=== PATIENT | female | born 1980 | race Caucasian/White ===

== ENCOUNTER → 2016-06-26 | Outpatient (CLI) | payer MEDICAID, MEDICARE, OTHER ==
[~2016-06-26] MED LIST: BUSP5TA PO; CYCL10TA PO; DIAM500C PO; EFFE150C PO; FERR325T3 PO; HYDR-4274 PO; HYDR25T PO; LAMI200T3 PO; LASI20TA PO; LEVO125T41 PO; LYRI100C10 PO; LYRI75CA PO; OXYC1TAB15 PO; PERC10TA17 PO; PERC7.5T3 PO; VITA200010 PO; VITA200016 PO; XOPEAER INH
--- NOTE | 2016-06-26 15:32 | REP ---
CT head without contrast: History: Ventricular shunt. Comparison: 09/26/2015 There is no intraparenchymal hemorrhage, mass or midline shift. A shunt is present in the anterior horn of the right lateral ventricle. The ventricular system is normal in appearance. There is no hydrocephalus. There is no extracerebral collection. The visualized sinuses are clear. IMPRESSION: A shunt is present in the right lateral ventricle. There is no hydrocephalus. Signed by Eric Clement MD 06/26/2016 03:36 P
== END ==
LOC: M RAD 14:37
PROVIDERS: ATTEND Neurological Surgery
DX: G93.2 Benign intracranial hypertension (principal); Z98.2 Presence of cerebrospinal fluid drainage device; E03.9 Hypothyroidism, unspecified

== ENCOUNTER → 2016-06-26 | Outpatient (CLI) | payer MEDICARE, OTHER ==
[2016-06-26 15:09] LABS: MEAN CORPUSCULAR HEMOGLOBIN 31.1 pg (27.0-33.0); MEAN CORPUSCULAR HGB CONC 33.5 g/dl (32.0-36.5); MEAN CORPUSCULAR VOLUME 92.8 fl (80.0-96.0); WHITE BLOOD COUNT 9.9 K/mm3 (4.0-10.0)
[2016-06-26 15:35] LABS: ALBUMIN 3.9 GM/DL (3.2-5.2); ALBUMIN/GLOBULIN RATIO 1.11 (1.00-1.93); ALKALINE PHOSPHATASE 225 U/L (45-117); ALT/SGPT 55 U/L (12-78); ANION GAP 11 MEQ/L (8-16); AST/SGOT 19 U/L (15-37); BILIRUBIN,TOTAL 0.2 MG/DL (0.2-1.0); BLOOD UREA NITROGEN 9 MG/DL (7-18); CALCIUM LEVEL 9.1 MG/DL (8.5-10.1); CARBON DIOXIDE LEVEL 23 MEQ/L (21-32); CHLORIDE LEVEL 107 MEQ/L (98-107); CREATININE FOR GFR 0.97 MG/DL (0.55-1.02); FREE T4 0.91 NG/DL (0.76-1.46); GLOMERULAR FILTRATION RATE > 60.0 (>60); GLUCOSE, FASTING 120 MG/DL (70-105); POTASSIUM SERUM 4.1 MEQ/L (3.5-5.1); SODIUM LEVEL 141 MEQ/L (136-145); TOTAL PROTEIN 7.4 GM/DL (6.4-8.2)
== END ==
LOC: M LAB 14:02
PROVIDERS: ATTEND Family Medicine
DX: E03.9 Hypothyroidism, unspecified (principal)

== ENCOUNTER → 2016-06-27 | Outpatient (CLI) | payer MEDICARE, MEDICAID, OTHER ==
--- NOTE | 2016-07-01 00:09 | ECWPNPC ---
PATIENT NAME: JASVIR PADILLA : 1980 GENDER: FEMALE VISIT DATE: 06/27/2016 DISCHARGE DATE: 06/27/16 1458 VISIT LOCKED DATE TIME: PHYSICIAN: LILIA WOOTEN RESOURCE: LILIA WOOTEN REASON FOR APPOINTMENT 1. FIBROMYALGIA HISTORY OF PRESENT ILLNESS NEW PATIENT CONSULT: WHEN DID YOUR PAIN FIRST START? . BRIEFLY DESCRIBE HOW YOUR PAIN STARTED? . HOW DOES YOUR PAIN CHANGE WITH TIME? . DOES YOUR PAIN AWAKEN YOU FROM SLEEP? . HOW MANY HOURS OF SLEEP DO YOU NORMALLY GET? . ANY DIAGNOSTIC TESTING? . FACILITY WHERE TESTS WERE DONE? ____. PAIN TREATMENT TREATMENT YES CANCER HAVE YOU EVER HAD ANY TYPE OF CANCER?NO NO. PAIN SCREENING: PATIENT HAS A COMPLAINT OF ACUTE OR CHRONIC PAIN YES FALL RISK SCREENING: SCREENING :NO FALLS IN THE PAST YEAR US INVENTORY: QUESTIONNAIRE ASSESSEDTBD SCORE VALUE CALCULATED TBD HISTORY OF PRESENT ILLNESS: HERE FOR F/U GENERALIZED BODY PAIN AND HEAD PAIN AND PARATHESIA. NEUROLOGY IN [place] DR. HEATON PLACED SHUNT RIGHT HEAD IN MARCH.REPORTING SOME IMPROVEMENT IN RIGHT HEAD PAIN.C/O SEVERE INCRESE IN GENERALIZED BODY PAIN W HX OF FIBROMYALGIA.C/O GENERALIZED BODY BURNING PAIN.STATES SHE CANT WALK DUE TO LOWER EXTREMITY WEAKNESS. AWAITING SHUNT PLACE DIAGNOSED W PSEUDO TUMOR CEREBRI 3 YRS AGO. 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 FINDING LYRICA AND FLEXERIL HELPFUL BUT WONDERING IF WE CAN INCREASE LYRICA. DENIES SIDE EFFECTS.RATING PAIN VAS 8/10.REPORTING WEIGHT GAIN AND REPORTS 5 POUND WEIGHT GAIN PAST MOS. PAIN THE PATIENT DESCRIBES THE PAIN... THE PATIENT DESCRIBES THE PAIN... THE PATIENT DESCRIBES THE PAIN... THE PATIENT DESCRIBES THE PAIN... CURRENT MEDICATIONS TAKING LAMICTAL 200 MG TABLET 1 TABLET ORALLY DAILY TAKING EFFEXOR XR 37.5 MG CAPSULE EXTENDED RELEASE 24 HOUR 1 CAPSULE WITH FOOD ORALLY ONCE A DAY TAKING LEVOTHYROXINE SODIUM 175 MCG TABLET 1 TABLET ORALLY ONCE A DAY TAKING FERROUS SULFATE 325 MG CAPSULE ORALLY TAKING DIAMOX SEQUELS 750 MG CAPSULE EXTENDED RELEASE 1 CAPSULE ORALLY BID TAKING VITAMIN D-3 2000 CAPSULE 1 CAPSULE ORALLY ONCE A DAY TAKING PERCOCET 10-325 MG TABLET 2 TABLET NEEDED ORALLY TID TAKING CYCLOBENZAPRINE HCL 10 MG TABLET 1 TABLET ORALLY QID TAKING LYRICA 200 MG CAPSULE 1 CAPSULE ORALLY THREE TIMES A DAY MDD3 TAKING EFFEXOR XR 150 MG CAPSULE EXTENDED RELEASE 24 HOUR 2 CAPSULE WITH FOOD ORALLY ONCE A DAY TAKING ZOFRAN 4 MG TABLET 1 TABLETS ORALLY Q 6 PRN NOT-TAKING HYDROXYZINE HCL 25 MG TABLET 1 TABLET NEEDED ORALLY BID NOT-TAKING PREGABALIN 200 MG CAPSULE 1 CAPSULE ORALLY 3 TIMES A DAY NOT-TAKING DOXYCYCLINE HYCLATE 100 MG CAPSULE 1 CAPSULE ORALLY BID NOT-TAKING FLOMAX 0.4 MG CAPSULE EXTENDED RELEASE 24 HOUR 1 CAPSULE 30 MINUTES AFTER THE SAME MEAL EACH DAY ORALLY ONCE A DAY NOT-TAKING POTASSIUM CITRATE ER 10 MEQ (1080 MG) TABLET EXTENDED RELEASE 1 TABLET WITH MEALS ORALLY THREE TIMES A DAY MEDICATION LIST REVIEWED AND RECONCILED WITH THE PATIENT PAST MEDICAL HISTORY PSEUDO TUMOR CEREBRI KIDNEY STONE ASTHMA ARTHRITIS FIBROMYALGIA ANEMIA CERVICAL STENOSIS CHRONIC BACK PAIN NASAL PASSAGE NARROWING ALLERGIES BETADINE: HIVES IODINE: HIVES LATEX (FOR ALLERGY USE ONLY): HIVES PENICILLIN (FOR ALLERGIES USE ONLY): HIVES CEFTIN: THROAT SWELLING SULFA (FOR ALLERGY USE ONLY): HIVES ERYTHROMYCIN: NAUSEA/VOMITING: SIDE EFFECTS SURGICAL HISTORY TOTAL HYSTERECTOMY 2016 SHUNT PLACED 2016 CARPEL TUNNEL BILATERAL 2013 FAMILY HISTORY FATHER: UNKNOWN MOTHER: ALIVE SIBLINGS: ALIVE SOCIAL HISTORY GENERAL: PAIN CLINIC PFS, CLERGY, PUBLIC HEALTH REFERRALS CLERGY REFERRAL NEEDED?NO WAS THE PROVIDER NOTIFIED OF ANY PERTINENT INFO?NO PFS REFERRAL NEEDED?NO PUBLIC HEALTH REFERRAL NEEDED?NO PSYCHOLOGICAL HX TREATMENTNO ALCOHOL OR DRUG TREATMENTNO PATIENT: ____. ADVANCED DIRECTIVES HEALTH CARE PROXY?NO POWER OF AEROSPACE PROJECT ENGINEER?NO SCREENING/ASSESSMENT TOOL NUTRITION ASSESSEDYES ARE YOU ON ANY SPECIAL DIET?NO ANY SIGNIFICANT CHANGES RELATED TO EATING, WEIGHT GAIN/LOSS, OR BOWEL HABITS?NO IF YES, IS YOUR PRIMARY CARE PROVIDER AWARE OF THIS?NO SPECIAL NEEDS LEVEL OF CARE? SELF, GLASSES: NO, CONTACTS: NO, HEARING AIDS: NO, DENTURES: NO, WALKER: NO, CANE: NO, WHEELCHAIR: NO, REFERRALS NEEDED: NO. TOBACCO USE ARE YOU A:NONSMOKER CAFFEINE CAFFEINE USE?NO RECREATIONAL DRUG USE DRUG USE?NO HOSPITALIZATION/MAJOR DIAGNOSTIC PROCEDURE NO HOSPITALIZATION HISTORY. REVIEW OF SYSTEMS CONSTITUTIONAL: ANY CHANGE IN YOUR MEDICAL CONDITION? NO . CHILLS NO . FEVER NO . INFECTION: DO YOU HAVE NEW INFECTIONS? NO . DO YOU HAVE HISTORY OF MRSA? NO . MUSCULOSKELETAL: ANY NEW PATTERNS OF PAIN OR NUMBNESS? NO . SYTEMIC LUPUS NO . GASTROENTEROLOGY: ANY NEW CHANGE IN BOWEL CONTROL? NO . BARRETTS ESOPHAGUS NO . CIRRHOSIS NO . HEPATITIS NO . LIVER FAILURE NO . ACID REFLUX NO . UNEXPLAINED WEIGHT LOSS NO . GENITOURINARY: ANY NEW CHANGE IN BLADDER CONTROL? NO . IS THERE A CHANCE YOU COULD BE ? NO . HEMATOLOGY/LYMPH: DO YOU TAKE ANY BLOOD THINNERS? (FOR EXAMPLE- COUMADIN, PLAVIX, AGGRENOX, PLATEL, PRADAXA, OR XARELTO) NO . WHEN WAS YOUR LAST DOSE? DATE: TIME: . LOW PLATELET COUNT NO . SICKLE CELL DISEASE NO . VON WILLIEBRANDS NO . FACTOR V LEIDEN NO . THALLASEMIA NO . ANEMIA NO . EASY BRUISING NO . NEUROLOGY: HAVE YOU FALLEN IN THE PAST 6 MONTHS? NO . ANY NEW EXTREMITY NUMBNESS OR WEAKNESS? NO . HEAD INJURY NO . DEMENTIA NO . CEREBRAL PALSY NO . MULTIPLE SCLEROSIS NO . DIZZINESS NO . HEADACHE NO . STROKES NO . VERTIGO NO . CARDIOLOGY: DO YOU HAVE A PACEMAKER OR DEFIBRILLATOR? NO . ANGINA NO . HEART ATTACK NO . HEART SURGERY NO . CONGESTIVE HEART FAILURE/FLUID OVERLOAD NO . CHEST PAIN NO . HIGH BLOOD PRESSURE NO . IRREGULAR HEART BEAT NO . RESPIRATORY: HAVE YOU BEEN SICK IN THE PAST WEEK? NO . FEVER NO . FLU LIKE SYMPTOMS? NO . CPAP NO . BYPAP NO . ASTHMA NO . EMPHYSEMA NO . CHRONIC LUNG DISEASES NO . SHORTNESS OF BREATH ON EXERTION NO . DO YOU USE ANY TYPE OF TOBACCO (SMOKE, SMOKELESS, CHEW)? NO . COUGH NO . SNORING NO . INTEGUMENTARY: DO YOU HAVE ANY RASHES OR OPEN SORES? NO . ALLERGIC/IMMUNO: ARE YOU ALLERGIC TO SHELLFISH OR IV DYE? YES . ANY NEW ALLERGIES? NO . PSYCHIATRIC: DO YOU HAVE THOUGHTS OF HURTING YOURSELF OR SOMEONE ELSE? NO . ARE YOU ABUSED, NEGLECTED, OR IN AN UNSAFE ENVIRONMENT? NO . ENDOCRINOLOGY: ARE YOU DIABETIC? NO . THYROID DISORDER NO . OTHER: DO YOU NEED ANY PRESCRIPTIONS? YES KEYA COLE . IF YES, PLEASE LIST: ____ . ANY NEW PROBLEMS WITH YOUR MEDICATIONS? NO . WHEN DID YOU LAST EAT? ____ . WHEN DID YOU LAST DRINK? ____ . WHAT DID YOU LAST DRINK? ____ . NAME OF PERSON DRIVING YOU HOME? ____ . DO YOU HAVE ANY OTHER QUESTIONS OR CONCERNS NO . REVIEWED BY: PROVIDER: LILIA GEORGES . VITAL SIGNS WT 348.8 LBS, HT 67", BMI 54.62 INDEX, BP 170/90 MM HG, HR 100 /MIN, RR 18 /MIN, TEMP 96.8 F, OXYGEN SAT % 93%, NA INITIALS SC14:18. EXAMINATION GENERAL EXAMINATION: LUNGS:LUNG SOUNDS ARE CLEAR. HEART:HEART RATE REGULAR. MUSCULOSKELETAL:*. NEUROLOGICAL: CRANIAL NERVES:CRANIAL NERVE 2-12 GROSSLY INTACT. LEFT EYE VISUAL TRACKING: UNABLE TO CONVERGE LEFT PUPIL ON EXAM.. ASSESSMENTS MYOFASCIAL PAIN - M79.1 (PRIMARY) TREATMENT MYOFASCIAL PAIN CONTINUE LYRICA CAPSULE, 200 MG, 1 CAPSULE, ORALLY, THREE TIMES A DAY MDD3, 30 DAY(S), 90, REFILLS 2 REFILL CYCLOBENZAPRINE HCL TABLET, 10 MG, 1 TABLET, ORALLY, QID, 30 DAY(S), 120 TABLET, REFILLS 2 NOTES: PATIENT WAS ADVISED TO START A WALKING PROGRAM TO STRENGTHEN LUMBAR PARASPINAL MUSCLES AND IMPROVE MOBILITY. THEY WERE ADVISED THAT THIS WILL IMPROVE WEIGHT LOSS AND ALSO DEPRESSION/FIBROMYALGIA SYMPTOMS. ADVISED TO WALK 10 MINUTES EVERY OTHER DAY ON A FLAT SURFACE. EMPHASIZED THE IMPORTANCE OF DOING THIS CONSISTANTLY AND NOT SPORATICALLY TO AVOID INJURY. STRONG ADVISED NOT TO DO MORE THAN 10 MINUTES EVERY OTHER DSY FOR THE FIRST 4 WEEKS. PROCEDURE CODES FA211 ESTABILISHED PATIENT [facility] CHARGE G8730 PAIN ASSESS POS TOOL F/U PLAN DOC G8427 DOC MEDS VERIFIED W/PT OR RE DISPOSITION & COMMUNICATION FOLLOW UP 6 WEEKS ELECTRONICALLY SIGNED BY JOSÉ MANUEL BENDER ON 06/30/2016 AT 04:55 PM EST DISCLAIMER : THIS IS A VISIT SUMMARY EXTRACTED FROM THE [employer] CHART. IT IS NOT A COPY OF THE [employer] PROGRESS NOTE. BERTHA
== END ==
LOC: M PAIN 14:00
PROVIDERS: ATTEND Nurse Practitioner Family
DX: M79.1 Myalgia (principal); G89.29 Other chronic pain; Z79.891 Long term (current) use of opiate analgesic; Z79.899 Other long term (current) drug therapy; R51 Headache; Z88.0 Allergy status to penicillin; Z88.2 Allergy status to sulfonamides; Z88.8 Allergy status to other drugs, medicaments and biological substances

== ENCOUNTER 2016-06-30 19:39 | Emergency (ER) | payer MEDICARE, MEDICAID, OTHER ==
[2016-06-30 20:25] LABS: CONTROL LINE UCG INT CTR LINE PRESENT
[2016-06-30] MEDS ORDERED: KETOROLAC 30 MG/ML VIAL (J1885) As Ordered ONE (20:26)
[2016-06-30] MEDS ORDERED: ONDANSETRON 4MG/2ML VIAL (J2405) As Ordered ONE (20:26)
[2016-06-30 20:44] LABS: BASO # 0.1 K/mm3 (0.0-0.2); BASO % 0.7 % (0.0-1.0); EOS # 0.6 K/mm3 (0.0-0.50); EOS % 3.9 % (0.0-3.0); LARGE UNSTAINED CELL # 0.3 K/mm3 (0.0-0.4); LYMPH # 2.3 K/mm3 (1.5-4.5); LYMPH % 15.9 % (24.0-44.0); MEAN CORPUSCULAR HGB CONC 34.1 g/dl (32.0-36.5); MEAN CORPUSCULAR VOLUME 90.9 fl (80.0-96.0); MONO # 0.6 K/mm3 (0.0-0.8); NEUTROPHILS # 10.5 K/mm3 (1.8-7.7); NEUTROPHILS % 73.5 % (36.0-66.0); PLATELET COUNT, AUTOMATED 226 k/mm3 (150-450); RED CELL DISTRIBUTION WIDTH 14.8 % (11.5-14.5); WHITE BLOOD COUNT 14.3 K/mm3 (4.0-10.0)
[2016-06-30 21:11] LABS: ALBUMIN 4.1 GM/DL (3.2-5.2); ALBUMIN/GLOBULIN RATIO 1.11 (1.00-1.93); ALKALINE PHOSPHATASE 236 U/L (45-117); ALT/SGPT 54 U/L (12-78); AMYLASE 24 U/L (25-115); ANION GAP 9 MEQ/L (8-16); AST/SGOT 28 U/L (15-37); BILIRUBIN,DIRECT < 0.1 MG/DL (0.0-0.2); BILIRUBIN,TOTAL 0.2 MG/DL (0.2-1.0); BLOOD UREA NITROGEN 10 MG/DL (7-18); CALCIUM LEVEL 8.8 MG/DL (8.5-10.1); CARBON DIOXIDE LEVEL 25 MEQ/L (21-32); CHLORIDE LEVEL 107 MEQ/L (98-107); GLOMERULAR FILTRATION RATE 49.9 (>60); GLUCOSE, FASTING 125 MG/DL (70-105); POTASSIUM SERUM 3.9 MEQ/L (3.5-5.1); SODIUM LEVEL 141 MEQ/L (136-145); TOTAL PROTEIN 7.8 GM/DL (6.4-8.2)
[2016-06-30] MEDS ORDERED: TAMSULOSIN 0.4 MG CAP As Ordered ONE (22:51)
--- NOTE | 2016-06-30 23:03 | EDDOCDS ---
Nurse's Notes [facility] Name: Sury Lee Age: 35 yrs Sex: Female : 1980 Arrival Date: 06/30/2016 Time: 19:39 Bed I5 / M5 Private MD: Karthik Menendez Diagnosis: Calculus of kidney and ureter-RIGHT 2MM;Abnormal levels of other serum enzymes-CREATININE Presentation: 06/30 19:47 Presenting complaint: Patient states: severe pain in right flank and low abdomen. Pt jo3 has a history of kidney stones. Acute neurological deficits are not present. Mechanism of Injury: No Mechanism of Injury. Adult Sepsis Screening: The patient does not have new or worsening altered mentation. Patient's respiratory rate is less than 22. Systolic blood pressure is greater than 100. Patient has a qSOFA score of 0- Negative Sepsis Screen. Suicide/Homicide risk assessment- the patient denies having any suicidal and/or homicidal ideations and does not present with any other emotional, behavioral or mental health complaints. Status: Patient is not a slitter service and setter or dependent. Transition of care: patient was not received from another setting of care. 19:47 Acuity: RAFAL Level 3 jo3 19:47 Method Of Arrival: Walkin/Carried/Asstd jo3 Triage Assessment: 19:49 General: Appears uncomfortable, Behavior is crying. Pain: Pain currently is 10 out of jo3 10 on a pain scale. HIV screening NA for this visit Offered previously. The patient is triaged at the bedside. See Assessment in Nurses Notes section of ED record. Neurological: Level of Consciousness is awake, alert, Oriented to person, place, time. Cardiovascular: No deficits noted. Respiratory: Airway is patent Respiratory effort is even, unlabored. Derm: Skin is pink, warm & dry. 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 Diamox Sequels 750 Oral cpER 1 cap twice a day 2. Effexor XR 337.5 in am Oral once daily 3. ferrous sulfate 325 mg (65 mg iron) Oral cpER daily 4. Flexeril 10 mg Oral tab four times a day 5. Lamictal 200 mg Oral tab 1 tab once daily 6. levothyroxine 175 mcg Oral tab once daily 7. Lyrica 200mg Oral 3 times per day 8. Vitamin D Oral 2000 unit twice a day - PMHx: ADHD; back pain; Bipolar disorder; Borderline Personality Disorder; Degenerative disc disease; Depression; Fibromyalgia; Hypothyroidism; legally blind; OCD; Pseudo Tumor Cerebri; PTSD; restless leg; - PSHx: Hysterectomy; Carpal Tunnel Repair- Bilateral; - Social history: Smoking status: No barriers to communication noted, The patient speaks fluent Hungarian, Speaks appropriately for age, Smoking status: Patient uses tobacco products, heavy tobacco smoker. - Family history: Not pertinent. - : The pt / caregiver states he / she is not on anticoagulants. Home medication list is obtained from the patient. - Exposure Risk Screening:: None identified. Screenin:32 Screening information is obtained from the patient. Fall risk: No risks identified. mcp Assistance ADL's: requires no assistance with activities of daily living. Abuse/DV Screen: The patient / caregiver reports he/she is: not in a situation that causes fear, pain or injury. Nutritional screening: No deficits noted. Advance Directives: There is no active DNR order. home support is adequate. Assessment: 19:54 General: Appears uncomfortable, Behavior is crying. Pain: Location: right flank Pain mb9 currently is 9 out of 10 on a pain scale. Respiratory: Airway is patent Respiratory effort is even, unlabored. 23:00 General: Appears in no apparent distress, Behavior is cooperative. Neurological: No mcp deficits noted. Respiratory: Airway is patent Respiratory effort is even, unlabored. Derm: Skin is pink, warm & dry. Musculoskeletal: Circulation, motion, and sensation intact. Vital Signs: 19:40 BP 167 / 103; Pulse 110; Resp 18; Temp 98; Pulse Ox 92% ; Weight 154.22 kg; Height 5 jlm ft. 7 in. (170.18 cm); Pain 10/10; 21:00 Pain 6/10; mcp 22:48 BP 109 / 65; Pulse 88; Resp 18; Temp 96.9; Pulse Ox 93% on R/A; mcp 19:40 Body Mass Index 53.25 (154.22 kg, 170.18 cm) [facility] Vitals: 19:40 Log In Time: June 30, 2016 at 19:40. [facility] ED Course: 19:40 Patient visited by Pau Merida, Auto Self Service Station Attendant. jlm 19:40 Karthik Menendez MD is Private Physician. jlm 19:40 Patient moved to Waiting jlm 19:41 Patient moved to Pre RCE jlm 19:47 Triage Initiated jo3 19:50 Patient visited by Marj Martínez RN. jo3 19:50 Patient moved to Triage 1 jo3 19:52 Patient moved to Triage 2 jb5 19:56 Dwaine Jasmine RPA-C is PHCP. ck7 19:56 Joon Patel DO is Attending Physician. ck7 19:56 Patient visited by Dwaine Jasmine RPA-C. ck7 20:08 Patient moved to I5 / M5 jb5 20:10 Urinalysis Sent. mb9 20:10 Urine Culture Sent. mb9 20:30 Patient visited by Dwaine Jasmine RPA-C. ck7 20:31 Amylase Sent. mcp 20:31 Basic Metabolic Profile Sent. mcp 20:31 CBC with Diff Sent. mcp 20:31 Lipase Sent. mcp 20:31 Liver Profile Sent. mcp 20:32 Inserted saline lock: 20 gauge in right antecubital area and blood collected. The mcp patient tolerated the procedure well. Labs drawn. (by ED staff). Sent per order to lab. 20:33 Patient visited by Hali Lancaster RN. mcp 20:33 The patient / caregiver is instructed regarding the plan of care and ED course. Patient mcp has correct armband on for positive identification. Placed in gown. Bed in low position. Call light in reach. 20:55 [facility] Payment Agreement was scanned into [employer] and attached to record. kf3 21:19 Patient visited by Dwaine Jasmine RPA-C. ck7 21:54 Patient visited by Dwaine Jasmine RPA-C. ck7 22:42 Patient visited by Dwaine Jasmine RPA-C. ck7 22:43 Jim Murphy is Referral Physician. ck7 22:49 Patient visited by Hali Lancaster RN. mcp 23:00 Discontinued lock intact, bleeding controlled, pressure dressing applied, No mcp redness/swelling at site. No procedures done that require assistance. Administered Medications: 20:31 Drug: ketorolac 30 mg [ketorolac 30 mg/mL (1 mL) injection solution (1 mL)] Route: IVP; mcp Site: right antecubital; 21:00 Follow up: Pain 6/10 Adult; Response: Pain is decreased [facility] 20:31 Drug: Ondansetron 4 mg [ondansetron HCl 2 mg/mL intravenous solution (2 mL)] Route: mcp IVP; Site: right antecubital; 20:32 Drug: NS 0.9% 1000 ml [sodium chloride 0.9 % intravenous solution] Route: IV; Rate: mcp bolus; Site: right antecubital; 23:01 Follow up: IV Status: Infusion discontinued; IV Intake: 500ml [facility] 23:00 Drug: Tamsulosin 0.4 mg [tamsulosin 0.4 mg capsule (1 caps)] Route: PO; mcp Intake: 23:01 IV: 500.00ml; Total: 500.00ml. [facility] Order Results: Lab Order: Amylase; SPEC'M 06/30/16 20:24 Test: AMYLASE; Value: 24; Range: 25-115; Abnormal: Below low normal; Units: U/L; Status: F Lab Order: Basic Metabolic Profile; SPEC'M 06/30/16 20:24 Test: GLUCOSE, FASTING; Value: 125; Range: 70-105; Abnormal: Above high normal; Units: MG/DL; Status: F Test: BLOOD UREA NITROGEN; Value: 10; Range: 7-18; Units: MG/DL; Status: F Test: CREATININE FOR GFR; Value: 1.30; Range: 0.55-1.02; Abnormal: Above high normal; Units: MG/DL; Status: F Test: GLOMERULAR FILTRATION RATE; Value: 49.9; Range: >60; Abnormal: Below low normal; Status: F Test: SODIUM LEVEL; Value: 141; Range: 136-145; Units: MEQ/L; Status: F Test: POTASSIUM SERUM; Value: 3.9; Range: 3.5-5.1; Units: MEQ/L; Status: F Test: CHLORIDE LEVEL; Value: 107; Range: 98-107; Units: MEQ/L; Status: F Test: CARBON DIOXIDE LEVEL; Value: 25; Range: 21-32; Units: MEQ/L; Status: F Test: ANION GAP; Value: 9; Range: 8-16; Units: MEQ/L; Status: F Test: CALCIUM LEVEL; Value: 8.8; Range: 8.5-10.1; Units: MG/DL; Status: F Test Note: ; Units are mL/min/1.73 m2 Chronic Kidney Disease Staging per NKF: Stage I & II GFR >=60 Normal to Mildly Decreased Stage III GFR 30-59 Moderately Decreased Stage IV GFR 15-29 Severely Decreased Stage V GFR <15 Very Little GFR Left ESRD GFR <15 on RETAIL ACCOUNT MANAGER Lab Order: CBC with Diff; SPEC'M 06/30/16 20:24 Test: WHITE BLOOD COUNT; Value: 14.3; Range: 4.0-10.0; Abnormal: Above high normal; Units: K/mm3; Status: F Test: RED BLOOD COUNT; Value: 5.61; Range: 4.00-5.40; Abnormal: Above high normal; Units: M/mm3; Status: F Test: HEMOGLOBIN; Value: 17.4; Range: 12.0-16.0; Abnormal: Above high normal; Units: g/dl; Status: F Test: HEMATOCRIT; Value: 50.9; Range: 36.0-47.0; Abnormal: Above high normal; Units: %; Status: F Test: MEAN CORPUSCULAR VOLUME; Value: 90.9; Range: 80.0-96.0; Units: fl; Status: F Test: MEAN CORPUSCULAR HEMOGLOBIN; Value: 31.0; Range: 27.0-33.0; Units: pg; Status: F Test: MEAN CORPUSCULAR HGB CONC; Value: 34.1; Range: 32.0-36.5; Units: g/dl; Status: F Test: RED CELL DISTRIBUTION WIDTH; Value: 14.8; Range: 11.5-14.5; Abnormal: Above high normal; Units: %; Status: F Test: PLATELET COUNT, AUTOMATED; Value: 226; Range: 150-450; Units: k/mm3; Status: F Test: NEUTROPHILS %; Value: 73.5; Range: 36.0-66.0; Abnormal: Above high normal; Units: %; Status: F Test: LYMPH %; Value: 15.9; Range: 24.0-44.0; Abnormal: Below low normal; Units: %; Status: F Test: MONO %; Value: 4.0; Range: 0.0-5.0; Units: %; Status: F Test: EOS %; Value: 3.9; Range: 0.0-3.0; Abnormal: Above high normal; Units: %; Status: F Test: BASO %; Value: 0.7; Range: 0.0-1.0; Units: %; Status: F Test: LARGE UNSTAINED CELL %; Value: 2.0; Range: 0.0-4.0; Units: %; Status: F Test: NEUTROPHILS #; Value: 10.5; Range: 1.8-7.7; Abnormal: Above high normal; Units: K/mm3; Status: F Test: LYMPH #; Value: 2.3; Range: 1.5-4.5; Units: K/mm3; Status: F Test: MONO #; Value: 0.6; Range: 0.0-0.8; Units: K/mm3; Status: F Test: EOS #; Value: 0.6; Range: 0.0-0.50; Abnormal: Above high normal; Units: K/mm3; Status: F Test: BASO #; Value: 0.1; Range: 0.0-0.2; Units: K/mm3; Status: F Test: LARGE UNSTAINED CELL #; Value: 0.3; Range: 0.0-0.4; Units: K/mm3; Status: F Lab Order: Lipase; [facility] 06/30/16 20:24 Test: LIPASE; Value: 187; Range: 73-393; Units: U/L; Status: F Lab Order: Liver Profile; [facility] 06/30/16 20:24 Test: AST/SGOT; Value: 28; Range: 15-37; Units: U/L; Status: F Test: ALT/SGPT; Value: 54; Range: 12-78; Units: U/L; Status: F Test: ALKALINE PHOSPHATASE; Value: 236; Range: 45-117; Abnormal: Above high normal; Units: U/L; Status: F Test: BILIRUBIN,TOTAL; Value: 0.2; Range: 0.2-1.0; Units: MG/DL; Status: F Test: BILIRUBIN,DIRECT; Value: < 0.1; Range: 0.0-0.2; Units: MG/DL; Status: F Test: TOTAL PROTEIN; Value: 7.8; Range: 6.4-8.2; Units: GM/DL; Status: F Test: ALBUMIN; Value: 4.1; Range: 3.2-5.2; Units: GM/DL; Status: F Test: ALBUMIN/GLOBULIN RATIO; Value: 1.11; Range: 1.00-1.93; Status: F Lab Order: Urinalysis; SPEC'M 06/30/16 20:07 Test: APPEARANCE, URINE; Value: HAZY; Range: CLEAR; Status: F Test: COLOR, URINE; Value: YELLOW; Range: YELLOW; Status: F Test: PH,URINE; Value: 5.0; Range: 5.0-9.0; Units: UNITS; Status: F Test: SPECIFIC GRAVITY URINE AUTO; Value: 1.021; Range: 1.002-1.035; Status: F Test: PROTEIN, URINE AUTO; Value: 1+; Range: NEGATIVE; Abnormal: Above high normal; Units: mg/dL; Status: F Test: GLUCOSE, URINE (UA) AUTO; Value: NEGATIVE; Range: NEGATIVE; Units: mg/dL; Status: F Test: KETONE, URINE AUTO; Value: NEGATIVE; Range: NEGATIVE; Units: mg/dL; Status: F Test: UROBILINOGEN, URINE AUTO; Value: 0.2; Range: 0.0-2.0; Units: mg/dL; Status: F Test: BILIRUBIN, URINE AUTO; Value: NEGATIVE; Range: NEGATIVE; Status: F Test: NITRITE, URINE AUTO; Value: NEGATIVE; Range: NEGATIVE; Status: F Test: LEUKOCYTE ESTERASE, URINE AUTO; Value: NEGATIVE; Range: NEGATIVE; Status: F Test: BLOOD, URINE BLOOD; Value: 3+; Range: NEGATIVE; Abnormal: Above high normal; Status: F Test: WBC, URINE AUTO; Value: 3; Range: 0-3; Units: /HPF; Status: F Test: RBC, URINE AUTO; Value: TNTC; Range: 0-3; Abnormal: Above high normal; Units: /HPF; Status: F Test: BACTERIA, URINE AUTO; Value: NEGATIVE; Range: NEGATIVE; Status: F Test: SQUAMOUS EPITHELIAL CELL UR AU; Value: 2; Range: 0-6; Units: /HPF; Status: F Test: MUCUS, URINE; Value: SMALL; Range: NEGATIVE; Status: F Test: HYALINE CAST, URINE AUTO; Value: 0; Range: 0-1; Units: /LPF; Status: F Lab Order: UCG- In Lab; BRYCE'Naun 06/30/16 20:07 Test: URINE PREG TEST; Value: NEGATIVE; Range: NEGATIVE; Status: F Outcome: 22:43 Discharge ordered by Provider. ck7 23:01 Discharge Assessment: patient administered narcotics - no. The following High Risk [facility] Discharge criteria are identified: None. Discharged to home via wheelchair, with parent. Condition: stable. Discharge instructions given to patient, parents Instructed on discharge instructions, follow up and referral plans. medication usage, Demonstrated understanding of instructions, medications, Pt was receptive of discharge instructions/ teaching. Prescriptions given X 3. CT Study completed. Property sent home with patient. 23:02 Patient left the ED. [facility] Signatures: Hali Lancaster, RN RN Izzy Watters, CHEMICAL LAB TECHNICIAN CHEMICAL LAB TECHNICIAN jb5 Marj MartínezRN RN jo3 Oleksandr Velez, Reg Reg kf3 Dwaine Jasmine, RPA-C RPA-Cck7 Pau Merida, Auto Self Service Station Attendant Unit Freddy Bai,RN RN mb9 MTDD
--- NOTE | 2016-06-30 23:03 | EDDOCDS ---
Physician Documentation [facility] Name: Sury Lee Age: 35 yrs Sex: Female : 1980 Arrival Date: 06/30/2016 Time: 19:39 Bed I5 / M5 Private MD: Karthik Menendez Disposition: 06/30/16 22:43 Discharged to Home/Self Care. Impression: Calculus of kidney and ureter - RIGHT 2MM, Abnormal levels of other serum enzymes - CREATININE. - Condition is Stable. - Discharge Instructions: Kidney Stones. - Prescriptions for Ibuprofen 600 mg Oral Tablet - take 1 tablet by ORAL route every 6 hours As needed take with food; 30 tablet. Flomax 0.4 mg Oral Capsule, Sust. Release 24 hr - take 1 capsule by ORAL route once daily 1/2 hour following the same meal each day; 30 capsule. ZOFRAN ODT 4 mg - dissolve 1 tablet by ORAL route 4 times per day As needed do not chew, do not swallow whole; 10 tablet. - Medication Reconciliation, Local Pharmacy Hours form. - Follow up: Jim Murphy; When: 2 - 3 days; Reason: Recheck today's complaints, Continuance of care. - Problem is new. - Symptoms have improved. - Notes: USE MEDICATIONS INSTRUCTED, FOLLOW UP WITH UROLOGY IN 2-3 DAYS, RETURN TO THE ER IF THE SYMPTOMS WORSEN OR BECOME CONCERNING Historical: - Allergies: betadine; Ceftin; IODINEIODINE CONTAINING; Latex; PENICILLINS; - Home Meds: 1. Diamox Sequels 750 Oral cpER 1 cap twice a day 2. Effexor XR 337.5 in am Oral once daily 3. ferrous sulfate 325 mg (65 mg iron) Oral cpER daily 4. Flexeril 10 mg Oral tab four times a day 5. Lamictal 200 mg Oral tab 1 tab once daily 6. levothyroxine 175 mcg Oral tab once daily 7. Lyrica 200mg Oral 3 times per day 8. Vitamin D Oral 2000 unit twice a day - PMHx: ADHD; back pain; Bipolar disorder; Borderline Personality Disorder; Degenerative disc disease; Depression; Fibromyalgia; Hypothyroidism; legally blind; OCD; Pseudo Tumor Cerebri; PTSD; restless leg; - PSHx: Hysterectomy; Carpal Tunnel Repair- Bilateral; - Social history: Smoking status: No barriers to communication noted, The patient speaks fluent Maltese, Speaks appropriately for age, Smoking status: Patient uses tobacco products, heavy tobacco smoker. - Family history: Not pertinent. - : The pt / caregiver states he / she is not on anticoagulants. Home medication list is obtained from the patient. - Exposure Risk Screening:: None identified. 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 7 in. (170.18 cm); Pain 10/10; 21:00 Pain 6/10; mcp 22:48 BP 109 / 65; Pulse 88; Resp 18; Temp 96.9; Pulse Ox 93% on R/A; mcp 19:40 Body Mass Index 53.25 (154.22 kg, 170.18 cm) jl MDM: 20:02 Undress patient appropriately for examination ordered. ck7 20:02 IV Saline Lock ordered. ck7 20:02 ketorolac 30 mg IVP once ordered. ck7 20:02 Ondansetron 4 mg IVP once ordered. ck7 20:03 Amylase Ordered. EDMS 20:03 Basic Metabolic Profile Ordered. EDMS 20:03 CBC with Diff Ordered. EDMS 20:03 Lipase Ordered. EDMS 20:03 Liver Profile Ordered. EDMS 20:03 Urinalysis Ordered. EDMS 20:04 Urine Culture Ordered. EDMS 20:04 NOTHING BY MOUTH+DIET ordered. EDMS 20:04 CT ABD & PELVIS: No Contrast Ordered. EDMS 20:11 UCG- In Lab Ordered. EDMS 20:32 NS 0.9% 1000 ml IV at bolus once ordered. mcp 20:37 Financial registration complete. kf3 20:55 [facility] Payment Agreement was scanned into [employer] and attached to record. kf3 21:19 Amylase Reviewed. ck7 21:19 Basic Metabolic Profile Reviewed. ck7 21:19 CBC with Diff Reviewed. ck7 21:19 Liver Profile Reviewed. ck7 21:19 Urinalysis Reviewed. ck7 21:19 Lipase Reviewed. ck7 21:19 UCG- In Lab Reviewed. ck7 22:45 Tamsulosin Extended Release 24 hour Capsule 0.4 mg PO once ordered. ck7 22:45 Dispense Urine Strainer ordered. ck7 Administered Medications: 20:31 Drug: ketorolac 30 mg [ketorolac 30 mg/mL (1 mL) injection solution (1 mL)] Route: IVP; [facility] Site: right antecubital; 21:00 Follow up: Pain 6/10 Adult; Response: Pain is decreased [facility] 20:31 Drug: Ondansetron 4 mg [ondansetron HCl 2 mg/mL intravenous solution (2 mL)] Route: mcp IVP; Site: right antecubital; 20:32 Drug: NS 0.9% 1000 ml [sodium chloride 0.9 % intravenous solution] Route: IV; Rate: mcp bolus; Site: right antecubital; 23:01 Follow up: IV Status: Infusion discontinued; IV Intake: 500ml [facility] 23:00 Drug: Tamsulosin 0.4 mg [tamsulosin 0.4 mg capsule (1 caps)] Route: PO; [facility] Signatures: Dispatcher [employer] Hali Hernandez RN RN mcp Helmerci, Jennifer, RN RN jo3 Oleksandr Velez, Reg Reg kf3 Dwaine Jasmine, JAMES-C [facility] The chart was reviewed and I authenticate all verbal orders and agree with the evaluation and treatment provided.Corrections: (The following items were deleted from the chart) 20:19 20:02 UCG by Nursing ordered. ck7 [facility] Attachments: 20:55 [facility] [place] Payment Agreement kf3 MTDD
--- NOTE | 2016-07-01 18:47 | REP ---
Clinical: Right flank pain. Comparison: 03/28/2015. Findings: Mild acute obstructive uropathy with edematous enlargement to the right kidney and hydroureteronephrosis with periureteral stranding secondary to 1 mm and 2 mm calculi in the distal right ureter at the ureterovesicle junction (images 130 - 133). The left kidney and ureter are normal. The bladder is collapsed. Hepatomegaly with fatty infiltration to the liver is appreciated. Spleen, pancreas, gallbladder, and bilateral adrenal glands are normal. The enteric system is without obstruction or acute inflammatory process. Fat containing periumbilical hernia likely secondary to prior surgery. Evidence for prior hysterectomy. No ascites. No intraperitoneal or retroperitoneal adenopathy. No free air. Lung bases are clear. Musculoskeletal structures are intact. Impression: Mild right-sided acute obstructive uropathy with 1 mm and 2 mm calculi in the distal right ureter at the ureterovesicle junction. Normal left kidney and collapsed bladder. Hepatomegaly and fatty infiltration to the liver without focal hepatic lesion. Fat containing periumbilical ventral hernia. Evidence for prior total hysterectomy. Signed by Jason Moran MD 07/01/2016 06:38 P
--- NOTE | 2016-07-03 00:04 | EDDOCDS ---
Physician Documentation [facility] Name: Sury Lee Age: 35 yrs Sex: Female : 1980 Arrival Date: 06/30/2016 Time: 19:39 Bed I5 / M5 Private MD: Karthik Menendez Disposition: 06/30/16 22:43 Discharged to Home/Self Care. Impression: Calculus of kidney and ureter - RIGHT 2MM, Abnormal levels of other serum enzymes - CREATININE. - Condition is Stable. - Discharge Instructions: Kidney Stones. - Prescriptions for Ibuprofen 600 mg Oral Tablet - take 1 tablet by ORAL route every 6 hours As needed take with food; 30 tablet. Flomax 0.4 mg Oral Capsule, Sust. Release 24 hr - take 1 capsule by ORAL route once daily 1/2 hour following the same meal each day; 30 capsule. ZOFRAN ODT 4 mg - dissolve 1 tablet by ORAL route 4 times per day As needed do not chew, do not swallow whole; 10 tablet. - Medication Reconciliation, Local Pharmacy Hours form. - Follow up: Jim Murphy; When: 2 - 3 days; Reason: Recheck today's complaints, Continuance of care. - Problem is new. - Symptoms have improved. - Notes: USE MEDICATIONS INSTRUCTED, FOLLOW UP WITH UROLOGY IN 2-3 DAYS, RETURN TO THE ER IF THE SYMPTOMS WORSEN OR BECOME CONCERNING Historical: - Allergies: betadine; Ceftin; IODINEIODINE CONTAINING; Latex; PENICILLINS; - Home Meds: 1. Diamox Sequels 750 Oral cpER 1 cap twice a day 2. Effexor XR 337.5 in am Oral once daily 3. ferrous sulfate 325 mg (65 mg iron) Oral cpER daily 4. Flexeril 10 mg Oral tab four times a day 5. Lamictal 200 mg Oral tab 1 tab once daily 6. levothyroxine 175 mcg Oral tab once daily 7. Lyrica 200mg Oral 3 times per day 8. Vitamin D Oral 2000 unit twice a day - PMHx: ADHD; back pain; Bipolar disorder; Borderline Personality Disorder; Degenerative disc disease; Depression; Fibromyalgia; Hypothyroidism; legally blind; OCD; Pseudo Tumor Cerebri; PTSD; restless leg; - PSHx: Hysterectomy; Carpal Tunnel Repair- Bilateral; - Social history: Smoking status: No barriers to communication noted, The patient speaks fluent Ghanaian, Speaks appropriately for age, Smoking status: Patient uses tobacco products, heavy tobacco smoker. - Family history: Not pertinent. - : The pt / caregiver states he / she is not on anticoagulants. Home medication list is obtained from the patient. - Exposure Risk Screening:: None identified. 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 7 in. (170.18 cm); Pain 10/10; 21:00 Pain 6/10; mcp 22:48 BP 109 / 65; Pulse 88; Resp 18; Temp 96.9; Pulse Ox 93% on R/A; mcp 19:40 Body Mass Index 53.25 (154.22 kg, 170.18 cm) jl MDM: 20:02 Undress patient appropriately for examination ordered. ck7 20:02 IV Saline Lock ordered. ck7 20:02 ketorolac 30 mg IVP once ordered. ck7 20:02 Ondansetron 4 mg IVP once ordered. ck7 20:03 Amylase Ordered. EDMS 20:03 Basic Metabolic Profile Ordered. EDMS 20:03 CBC with Diff Ordered. EDMS 20:03 Lipase Ordered. EDMS 20:03 Liver Profile Ordered. EDMS 20:03 Urinalysis Ordered. EDMS 20:04 Urine Culture Ordered. EDMS 20:04 NOTHING BY MOUTH+DIET ordered. EDMS 20:04 CT ABD & PELVIS: No Contrast Ordered. EDMS 20:11 UCG- In Lab Ordered. EDMS 20:32 NS 0.9% 1000 ml IV at bolus once ordered. mcp 20:37 Financial registration complete. kf3 20:55 [facility] Payment Agreement was scanned into [employer] and attached to record. kf3 21:19 Amylase Reviewed. ck7 21:19 Basic Metabolic Profile Reviewed. ck7 21:19 CBC with Diff Reviewed. ck7 21:19 Liver Profile Reviewed. ck7 21:19 Urinalysis Reviewed. ck7 21:19 Lipase Reviewed. ck7 21:19 UCG- In Lab Reviewed. ck7 22:45 Tamsulosin Extended Release 24 hour Capsule 0.4 mg PO once ordered. ck7 22:45 Dispense Urine Strainer ordered. ck7 07/01 09:17 T-Sheet-- Draft Copy was scanned into [employer] and attached to record. [facility] Administered Medications: 06/30 20:31 Drug: ketorolac 30 mg [ketorolac 30 mg/mL (1 mL) injection solution (1 mL)] Route: IVP; [facility] Site: right antecubital; 21:00 Follow up: Pain 6/10 Adult; Response: Pain is decreased [facility] 20:31 Drug: Ondansetron 4 mg [ondansetron HCl 2 mg/mL intravenous solution (2 mL)] Route: mcp IVP; Site: right antecubital; 20:32 Drug: NS 0.9% 1000 ml [sodium chloride 0.9 % intravenous solution] Route: IV; Rate: mcp bolus; Site: right antecubital; 23:01 Follow up: IV Status: Infusion discontinued; IV Intake: 500ml [facility] 23:00 Drug: Tamsulosin 0.4 mg [tamsulosin 0.4 mg capsule (1 caps)] Route: PO; [facility] Signatures: Dispatcher [employer] Hali Hernandez RN RN mcp Helmerci, Jennifer, RN RN joOleksandr Inman, Reg Reg kf3 Dwaine Jasmine, JAMES-C [id number] Lisette Tong The chart was reviewed and I authenticate all verbal orders and agree with the evaluation and treatment provided.Corrections: (The following items were deleted from the chart) 20:19 20:02 UCG by Nursing ordered. ck7 [facility] Attachments: 20:55 ID-EM Payment Agreement [email or web address] 07/01 09:17 T-Sheet-- Draft Copy [facility] Chart Complete MTDD
--- NOTE | 2016-07-03 00:04 | EDDOCDS ---
Nurse's Notes [facility] Name: Sury Lee Age: 35 yrs Sex: Female : 1980 Arrival Date: 06/30/2016 Time: 19:39 Bed I5 / M5 Private MD: Karthik Menendez Diagnosis: Calculus of kidney and ureter-RIGHT 2MM;Abnormal levels of other serum enzymes-CREATININE Presentation: 06/30 19:47 Presenting complaint: Patient states: severe pain in right flank and low abdomen. Pt jo3 has a history of kidney stones. Acute neurological deficits are not present. Mechanism of Injury: No Mechanism of Injury. Adult Sepsis Screening: The patient does not have new or worsening altered mentation. Patient's respiratory rate is less than 22. Systolic blood pressure is greater than 100. Patient has a qSOFA score of 0- Negative Sepsis Screen. Suicide/Homicide risk assessment- the patient denies having any suicidal and/or homicidal ideations and does not present with any other emotional, behavioral or mental health complaints. 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 Transition of care: patient was not received from another setting of care. 19:47 Acuity: RAFAL Level 3 jo3 19:47 Method Of Arrival: Walkin/Carried/Asstd jo3 Triage Assessment: 19:49 General: Appears uncomfortable, Behavior is crying. Pain: Pain currently is 10 out of jo3 10 on a pain scale. HIV screening NA for this visit Offered previously. The patient is triaged at the bedside. See Assessment in Nurses Notes section of ED record. Neurological: Level of Consciousness is awake, alert, Oriented to person, place, time. Cardiovascular: No deficits noted. Respiratory: Airway is patent Respiratory effort is even, unlabored. Derm: Skin is pink, warm & dry. 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 Diamox Sequels 750 Oral cpER 1 cap twice a day 2. Effexor XR 337.5 in am Oral once daily 3. ferrous sulfate 325 mg (65 mg iron) Oral cpER daily 4. Flexeril 10 mg Oral tab four times a day 5. Lamictal 200 mg Oral tab 1 tab once daily 6. levothyroxine 175 mcg Oral tab once daily 7. Lyrica 200mg Oral 3 times per day 8. Vitamin D Oral 2000 unit twice a day - PMHx: ADHD; back pain; Bipolar disorder; Borderline Personality Disorder; Degenerative disc disease; Depression; Fibromyalgia; Hypothyroidism; legally blind; OCD; Pseudo Tumor Cerebri; PTSD; restless leg; - PSHx: Hysterectomy; Carpal Tunnel Repair- Bilateral; - Social history: Smoking status: No barriers to communication noted, The patient speaks fluent Luxembourgish, Speaks appropriately for age, Smoking status: Patient uses tobacco products, heavy tobacco smoker. - Family history: Not pertinent. - : The pt / caregiver states he / she is not on anticoagulants. Home medication list is obtained from the patient. - Exposure Risk Screening:: None identified. Screenin:32 Screening information is obtained from the patient. Fall risk: No risks identified. mcp Assistance ADL's: requires no assistance with activities of daily living. Abuse/DV Screen: The patient / caregiver reports he/she is: not in a situation that causes fear, pain or injury. Nutritional screening: No deficits noted. Advance Directives: There is no active DNR order. home support is adequate. Assessment: 19:54 General: Appears uncomfortable, Behavior is crying. Pain: Location: right flank Pain mb9 currently is 9 out of 10 on a pain scale. Respiratory: Airway is patent Respiratory effort is even, unlabored. 23:00 General: Appears in no apparent distress, Behavior is cooperative. Neurological: No mcp deficits noted. Respiratory: Airway is patent Respiratory effort is even, unlabored. Derm: Skin is pink, warm & dry. Musculoskeletal: Circulation, motion, and sensation intact. Vital Signs: 19:40 BP 167 / 103; Pulse 110; Resp 18; Temp 98; Pulse Ox 92% ; Weight 154.22 kg; Height 5 jlm ft. 7 in. (170.18 cm); Pain 10/10; 21:00 Pain 6/10; mcp 22:48 BP 109 / 65; Pulse 88; Resp 18; Temp 96.9; Pulse Ox 93% on R/A; mcp 19:40 Body Mass Index 53.25 (154.22 kg, 170.18 cm) [facility] Vitals: 19:40 Log In Time: June 30, 2016 at 19:40. [facility] ED Course: 19:40 Patient visited by Pau Merida, Floor Attendant. jlm 19:40 Karthik Menendez MD is Private Physician. jlm 19:40 Patient moved to Waiting jlm 19:41 Patient moved to Pre RCE jlm 19:47 Triage Initiated jo3 19:50 Patient visited by Marj Martínez RN. jo3 19:50 Patient moved to Triage 1 jo3 19:52 Patient moved to Triage 2 jb5 19:56 Dwaine Jasmine RPA-C is PHCP. ck7 19:56 Joon Patel DO is Attending Physician. ck7 19:56 Patient visited by Dwaine Jasmine RPA-C. ck7 20:08 Patient moved to I5 / M5 jb5 20:10 Urinalysis Sent. mb9 20:10 Urine Culture Sent. mb9 20:30 Patient visited by Dwaine Jasmine RPA-C. ck7 20:31 Amylase Sent. mcp 20:31 Basic Metabolic Profile Sent. mcp 20:31 CBC with Diff Sent. mcp 20:31 Lipase Sent. mcp 20:31 Liver Profile Sent. mcp 20:32 Inserted saline lock: 20 gauge in right antecubital area and blood collected. The mcp patient tolerated the procedure well. Labs drawn. (by ED staff). Sent per order to lab. 20:33 Patient visited by Hali Lancaster RN. mcp 20:33 The patient / caregiver is instructed regarding the plan of care and ED course. Patient mcp has correct armband on for positive identification. Placed in gown. Bed in low position. Call light in reach. 20:55 [facility] Payment Agreement was scanned into [employer] and attached to record. kf3 21:19 Patient visited by Dwaine Jasmine RPA-C. ck7 21:54 Patient visited by Dwaine Jasmine RPA-C. ck7 22:42 Patient visited by Dwaine Jasmine RPA-C. ck7 22:43 Jim Murphy is Referral Physician. ck7 22:49 Patient visited by Hali Lancaster RN. mcp 23:00 Discontinued lock intact, bleeding controlled, pressure dressing applied, No mcp redness/swelling at site. No procedures done that require assistance. 07/01 09:17 T-Sheet-- Draft Copy was scanned into [employer] and attached to record. seh 19:25 CT ABD & PELVIS: No Contrast Returned. EDMS Administered Medications: 06/30 20:31 Drug: ketorolac 30 mg [ketorolac 30 mg/mL (1 mL) injection solution (1 mL)] Route: IVP; mcp Site: right antecubital; 21:00 Follow up: Pain 6/10 Adult; Response: Pain is decreased [facility] 20:31 Drug: Ondansetron 4 mg [ondansetron HCl 2 mg/mL intravenous solution (2 mL)] Route: mcp IVP; Site: right antecubital; 20:32 Drug: NS 0.9% 1000 ml [sodium chloride 0.9 % intravenous solution] Route: IV; Rate: mcp bolus; Site: right antecubital; 23:01 Follow up: IV Status: Infusion discontinued; IV Intake: 500ml [facility] 23:00 Drug: Tamsulosin 0.4 mg [tamsulosin 0.4 mg capsule (1 caps)] Route: PO; mcp Intake: 23:01 IV: 500.00ml; Total: 500.00ml. [facility] Order Results: Lab Order: Amylase; SPEC'M 06/30/16 20:24 Test: AMYLASE; Value: 24; Range: 25-115; Abnormal: Below low normal; Units: U/L; Status: F Lab Order: Basic Metabolic Profile; SPEC'M 06/30/16 20:24 Test: GLUCOSE, FASTING; Value: 125; Range: 70-105; Abnormal: Above high normal; Units: MG/DL; Status: F Test: BLOOD UREA NITROGEN; Value: 10; Range: 7-18; Units: MG/DL; Status: F Test: CREATININE FOR GFR; Value: 1.30; Range: 0.55-1.02; Abnormal: Above high normal; Units: MG/DL; Status: F Test: GLOMERULAR FILTRATION RATE; Value: 49.9; Range: >60; Abnormal: Below low normal; Status: F Test: SODIUM LEVEL; Value: 141; Range: 136-145; Units: MEQ/L; Status: F Test: POTASSIUM SERUM; Value: 3.9; Range: 3.5-5.1; Units: MEQ/L; Status: F Test: CHLORIDE LEVEL; Value: 107; Range: 98-107; Units: MEQ/L; Status: F Test: CARBON DIOXIDE LEVEL; Value: 25; Range: 21-32; Units: MEQ/L; Status: F Test: ANION GAP; Value: 9; Range: 8-16; Units: MEQ/L; Status: F Test: CALCIUM LEVEL; Value: 8.8; Range: 8.5-10.1; Units: MG/DL; Status: F Test Note: ; Units are mL/min/1.73 m2 Chronic Kidney Disease Staging per NKF: Stage I & II GFR >=60 Normal to Mildly Decreased Stage III GFR 30-59 Moderately Decreased Stage IV GFR 15-29 Severely Decreased Stage V GFR <15 Very Little GFR Left ESRD GFR <15 on BEHAVIORAL HEALTH AIDE Lab Order: CBC with Diff; SPEC'M 06/30/16 20:24 Test: WHITE BLOOD COUNT; Value: 14.3; Range: 4.0-10.0; Abnormal: Above high normal; Units: K/mm3; Status: F Test: RED BLOOD COUNT; Value: 5.61; Range: 4.00-5.40; Abnormal: Above high normal; Units: M/mm3; Status: F Test: HEMOGLOBIN; Value: 17.4; Range: 12.0-16.0; Abnormal: Above high normal; Units: g/dl; Status: F Test: HEMATOCRIT; Value: 50.9; Range: 36.0-47.0; Abnormal: Above high normal; Units: %; Status: F Test: MEAN CORPUSCULAR VOLUME; Value: 90.9; Range: 80.0-96.0; Units: fl; Status: F Test: MEAN CORPUSCULAR HEMOGLOBIN; Value: 31.0; Range: 27.0-33.0; Units: pg; Status: F Test: MEAN CORPUSCULAR HGB CONC; Value: 34.1; Range: 32.0-36.5; Units: g/dl; Status: F Test: RED CELL DISTRIBUTION WIDTH; Value: 14.8; Range: 11.5-14.5; Abnormal: Above high normal; Units: %; Status: F Test: PLATELET COUNT, AUTOMATED; Value: 226; Range: 150-450; Units: k/mm3; Status: F Test: NEUTROPHILS %; Value: 73.5; Range: 36.0-66.0; Abnormal: Above high normal; Units: %; Status: F Test: LYMPH %; Value: 15.9; Range: 24.0-44.0; Abnormal: Below low normal; Units: %; Status: F Test: MONO %; Value: 4.0; Range: 0.0-5.0; Units: %; Status: F Test: EOS %; Value: 3.9; Range: 0.0-3.0; Abnormal: Above high normal; Units: %; Status: F Test: BASO %; Value: 0.7; Range: 0.0-1.0; Units: %; Status: F Test: LARGE UNSTAINED CELL %; Value: 2.0; Range: 0.0-4.0; Units: %; Status: F Test: NEUTROPHILS #; Value: 10.5; Range: 1.8-7.7; Abnormal: Above high normal; Units: K/mm3; Status: F Test: LYMPH #; Value: 2.3; Range: 1.5-4.5; Units: K/mm3; Status: F Test: MONO #; Value: 0.6; Range: 0.0-0.8; Units: K/mm3; Status: F Test: EOS #; Value: 0.6; Range: 0.0-0.50; Abnormal: Above high normal; Units: K/mm3; Status: F Test: BASO #; Value: 0.1; Range: 0.0-0.2; Units: K/mm3; Status: F Test: LARGE UNSTAINED CELL #; Value: 0.3; Range: 0.0-0.4; Units: K/mm3; Status: F Lab Order: Lipase; SPEC'M 06/30/16 20:24 Test: LIPASE; Value: 187; Range: 73-393; Units: U/L; Status: F Lab Order: Liver Profile; SPEC'M 06/30/16 20:24 Test: AST/SGOT; Value: 28; Range: 15-37; Units: U/L; Status: F Test: ALT/SGPT; Value: 54; Range: 12-78; Units: U/L; Status: F Test: ALKALINE PHOSPHATASE; Value: 236; Range: 45-117; Abnormal: Above high normal; Units: U/L; Status: F Test: BILIRUBIN,TOTAL; Value: 0.2; Range: 0.2-1.0; Units: MG/DL; Status: F Test: BILIRUBIN,DIRECT; Value: < 0.1; Range: 0.0-0.2; Units: MG/DL; Status: F Test: TOTAL PROTEIN; Value: 7.8; Range: 6.4-8.2; Units: GM/DL; Status: F Test: ALBUMIN; Value: 4.1; Range: 3.2-5.2; Units: GM/DL; Status: F Test: ALBUMIN/GLOBULIN RATIO; Value: 1.11; Range: 1.00-1.93; Status: F Lab Order: Urinalysis; SPEC'M 06/30/16 20:07 Test: APPEARANCE, URINE; Value: HAZY; Range: CLEAR; Status: F Test: COLOR, URINE; Value: YELLOW; Range: YELLOW; Status: F Test: PH,URINE; Value: 5.0; Range: 5.0-9.0; Units: UNITS; Status: F Test: SPECIFIC GRAVITY URINE AUTO; Value: 1.021; Range: 1.002-1.035; Status: F Test: PROTEIN, URINE AUTO; Value: 1+; Range: NEGATIVE; Abnormal: Above high normal; Units: mg/dL; Status: F Test: GLUCOSE, URINE (UA) AUTO; Value: NEGATIVE; Range: NEGATIVE; Units: mg/dL; Status: F Test: KETONE, URINE AUTO; Value: NEGATIVE; Range: NEGATIVE; Units: mg/dL; Status: F Test: UROBILINOGEN, URINE AUTO; Value: 0.2; Range: 0.0-2.0; Units: mg/dL; Status: F Test: BILIRUBIN, URINE AUTO; Value: NEGATIVE; Range: NEGATIVE; Status: F Test: NITRITE, URINE AUTO; Value: NEGATIVE; Range: NEGATIVE; Status: F Test: LEUKOCYTE ESTERASE, URINE AUTO; Value: NEGATIVE; Range: NEGATIVE; Status: F Test: BLOOD, URINE BLOOD; Value: 3+; Range: NEGATIVE; Abnormal: Above high normal; Status: F Test: WBC, URINE AUTO; Value: 3; Range: 0-3; Units: /HPF; Status: F Test: RBC, URINE AUTO; Value: TNTC; Range: 0-3; Abnormal: Above high normal; Units: /HPF; Status: F Test: BACTERIA, URINE AUTO; Value: NEGATIVE; Range: NEGATIVE; Status: F Test: SQUAMOUS EPITHELIAL CELL UR AU; Value: 2; Range: 0-6; Units: /HPF; Status: F Test: MUCUS, URINE; Value: SMALL; Range: NEGATIVE; Status: F Test: HYALINE CAST, URINE AUTO; Value: 0; Range: 0-1; Units: /LPF; Status: F Lab Order: Urine Culture; SPEC'M 06/30/16 20:07 Test: URINE CULTURE; Value: <EXTERNAL COMMENT eCWMed> FULL REPORT IN LAB NOTES (eCW and Medent).; Status: F Test: URINE CULTURE; Value: URINE CULTURE RESULT NO GROWTH; Status: F Lab Order: UCG- In Lab; SPEC'M 06/30/16 20:07 Test: URINE PREG TEST; Value: NEGATIVE; Range: NEGATIVE; Status: F Radiology Order: CT ABD & PELVIS: No Contrast Test: CT ABD & PELVIS: No Contrast REASON FOR EXAMINATION: Renal colic; Clinical: Right flank pain.; ; Comparison: 03/28/2015.; ; Findings:; Mild acute obstructive uropathy with edematous enlargement to the right kidney; and hydroureteronephrosis with periureteral stranding secondary to 1 mm and 2 mm; calculi in the distal right ureter at the ureterovesicle junction (images 130 -; 133). The left kidney and ureter are normal. The bladder is collapsed.; ; Hepatomegaly with fatty infiltration to the liver is appreciated. Spleen,; pancreas, gallbladder, and bilateral adrenal glands are normal. The enteric; system is without obstruction or acute inflammatory process. Fat containing; periumbilical hernia likely secondary to prior surgery. Evidence for prior; hysterectomy. No ascites. No intraperitoneal or retroperitoneal adenopathy. No; free air. Lung bases are clear. Musculoskeletal structures are intact.; ; Impression:; Mild right-sided acute obstructive uropathy with 1 mm and 2 mm calculi in the; distal right ureter at the ureterovesicle junction. Normal left kidney and; collapsed bladder.; Hepatomegaly and fatty infiltration to the liver without focal hepatic lesion.; Fat containing periumbilical ventral hernia.; Evidence for prior total hysterectomy.; ; ; ; Signed by; Jason Moran MD 07/01/2016 06:38 P; Outcome: 22:43 Discharge ordered by Provider. ck7 23:01 Discharge Assessment: patient administered narcotics - no. The following High Risk [facility] Discharge criteria are identified: None. Discharged to home via wheelchair, with parent. Condition: stable. Discharge instructions given to patient, parents Instructed on discharge instructions, follow up and referral plans. medication usage, Demonstrated understanding of instructions, medications, Pt was receptive of discharge instructions/ teaching. Prescriptions given X 3. CT Study completed. Property sent home with patient. 23:02 Patient left the ED. [facility] Signatures: Dispatcher [employer] EDMS Hali Lancaster, RN RN Izzy Watters, HEALTH SPECIALIST HEALTH SPECIALIST jb5 Marj MartínezRN RN jo3 Oleksandr Velez, Reg Reg kf3 Dwaine Jasmine, RPA-C RPA-Cck7 Pau Merida, Floor Attendant Unit Freddy BaiRN RN mb9 Lisette Tong Chart Complete BERTHA
--- NOTE | 2016-07-03 00:04 | EDDOCDS ---
Physician Documentation [facility] Name: Sury Lee Age: 35 yrs Sex: Female : 1980 Arrival Date: 06/30/2016 Time: 19:39 Bed I5 / M5 Private MD: Karthik Menendez Disposition: 06/30/16 22:43 Discharged to Home/Self Care. Impression: Calculus of kidney and ureter - RIGHT 2MM, Abnormal levels of other serum enzymes - CREATININE. - Condition is Stable. - Discharge Instructions: Kidney Stones. - Prescriptions for Ibuprofen 600 mg Oral Tablet - take 1 tablet by ORAL route every 6 hours As needed take with food; 30 tablet. Flomax 0.4 mg Oral Capsule, Sust. Release 24 hr - take 1 capsule by ORAL route once daily 1/2 hour following the same meal each day; 30 capsule. ZOFRAN ODT 4 mg - dissolve 1 tablet by ORAL route 4 times per day As needed do not chew, do not swallow whole; 10 tablet. - Medication Reconciliation, Local Pharmacy Hours form. - Follow up: Jim Murphy; When: 2 - 3 days; Reason: Recheck today's complaints, Continuance of care. - Problem is new. - Symptoms have improved. - Notes: USE MEDICATIONS INSTRUCTED, FOLLOW UP WITH UROLOGY IN 2-3 DAYS, RETURN TO THE ER IF THE SYMPTOMS WORSEN OR BECOME CONCERNING Historical: - Allergies: betadine; Ceftin; IODINEIODINE CONTAINING; Latex; PENICILLINS; - Home Meds: 1. Diamox Sequels 750 Oral cpER 1 cap twice a day 2. Effexor XR 337.5 in am Oral once daily 3. ferrous sulfate 325 mg (65 mg iron) Oral cpER daily 4. Flexeril 10 mg Oral tab four times a day 5. Lamictal 200 mg Oral tab 1 tab once daily 6. levothyroxine 175 mcg Oral tab once daily 7. Lyrica 200mg Oral 3 times per day 8. Vitamin D Oral 2000 unit twice a day - PMHx: ADHD; back pain; Bipolar disorder; Borderline Personality Disorder; Degenerative disc disease; Depression; Fibromyalgia; Hypothyroidism; legally blind; OCD; Pseudo Tumor Cerebri; PTSD; restless leg; - PSHx: Hysterectomy; Carpal Tunnel Repair- Bilateral; - Social history: Smoking status: No barriers to communication noted, The patient speaks fluent Angolan, Speaks appropriately for age, Smoking status: Patient uses tobacco products, heavy tobacco smoker. - Family history: Not pertinent. - : The pt / caregiver states he / she is not on anticoagulants. Home medication list is obtained from the patient. - Exposure Risk Screening:: None identified. 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 7 in. (170.18 cm); Pain 10/10; 21:00 Pain 6/10; mcp 22:48 BP 109 / 65; Pulse 88; Resp 18; Temp 96.9; Pulse Ox 93% on R/A; mcp 19:40 Body Mass Index 53.25 (154.22 kg, 170.18 cm) jl MDM: 20:02 Undress patient appropriately for examination ordered. ck7 20:02 IV Saline Lock ordered. ck7 20:02 ketorolac 30 mg IVP once ordered. ck7 20:02 Ondansetron 4 mg IVP once ordered. ck7 20:03 Amylase Ordered. EDMS 20:03 Basic Metabolic Profile Ordered. EDMS 20:03 CBC with Diff Ordered. EDMS 20:03 Lipase Ordered. EDMS 20:03 Liver Profile Ordered. EDMS 20:03 Urinalysis Ordered. EDMS 20:04 Urine Culture Ordered. EDMS 20:04 NOTHING BY MOUTH+DIET ordered. EDMS 20:04 CT ABD & PELVIS: No Contrast Ordered. EDMS 20:11 UCG- In Lab Ordered. EDMS 20:32 NS 0.9% 1000 ml IV at bolus once ordered. mcp 20:37 Financial registration complete. kf3 20:55 [facility] Payment Agreement was scanned into [employer] and attached to record. kf3 21:19 Amylase Reviewed. ck7 21:19 Basic Metabolic Profile Reviewed. ck7 21:19 CBC with Diff Reviewed. ck7 21:19 Liver Profile Reviewed. ck7 21:19 Urinalysis Reviewed. ck7 21:19 Lipase Reviewed. ck7 21:19 UCG- In Lab Reviewed. ck7 22:45 Tamsulosin Extended Release 24 hour Capsule 0.4 mg PO once ordered. ck7 22:45 Dispense Urine Strainer ordered. ck7 07/01 09:17 T-Sheet-- Draft Copy was scanned into [employer] and attached to record. [facility] Administered Medications: 06/30 20:31 Drug: ketorolac 30 mg [ketorolac 30 mg/mL (1 mL) injection solution (1 mL)] Route: IVP; [facility] Site: right antecubital; 21:00 Follow up: Pain 6/10 Adult; Response: Pain is decreased [facility] 20:31 Drug: Ondansetron 4 mg [ondansetron HCl 2 mg/mL intravenous solution (2 mL)] Route: mcp IVP; Site: right antecubital; 20:32 Drug: NS 0.9% 1000 ml [sodium chloride 0.9 % intravenous solution] Route: IV; Rate: mcp bolus; Site: right antecubital; 23:01 Follow up: IV Status: Infusion discontinued; IV Intake: 500ml [facility] 23:00 Drug: Tamsulosin 0.4 mg [tamsulosin 0.4 mg capsule (1 caps)] Route: PO; [facility] Signatures: Dispatcher [employer] Hali Hernandez RN RN mcp Helmerci, Jennifer, RN RN joOleksandr Inman, Reg Reg kf3 Dwaine Jasmine, JAMES-C RPA-David7 Lisette Tong The chart was reviewed and I authenticate all verbal orders and agree with the evaluation and treatment provided.Corrections: (The following items were deleted from the chart) 20:19 20:02 UCG by Nursing ordered. ck7 [facility] Attachments: 20:55 [facility] Payment Agreement kf3 07/01 09:17 T-Sheet-- Draft Copy [facility] Chart Complete MTDD
== END 2016-06-30 23:02 | disposition home or self-care (01) ==
LOC: M ED 19:39
DX: N20.0 Calculus of kidney (principal); R79.89 Other specified abnormal findings of blood chemistry; F90.9 Attention-deficit hyperactivity disorder, unspecified type; M54.9 Dorsalgia, unspecified; F60.3 Borderline personality disorder; M51.9 Unspecified thoracic, thoracolumbar and lumbosacral intervertebral disc disorder; F32.9 Major depressive disorder, single episode, unspecified; M79.7 Fibromyalgia; E03.9 Hypothyroidism, unspecified; H54.8 Legal blindness, as defined in USA; F42.9 Obsessive-compulsive disorder, unspecified; G93.2 Benign intracranial hypertension; F43.10 Post-traumatic stress disorder, unspecified; G25.81 Restless legs syndrome; Z79.899 Other long term (current) drug therapy; Z88.0 Allergy status to penicillin; Z88.1 Allergy status to other antibiotic agents; Z88.8 Allergy status to other drugs, medicaments and biological substances; Z91.040 Latex allergy status; Z91.048 Other nonmedicinal substance allergy status; F17.210 Nicotine dependence, cigarettes, uncomplicated
CPT/HCPCS: 36415; 74176; 80048; 80076; 81001; 82150; 83690; 84703; 85025; 87086; 96361; 96374; 96375; 99284; J1885; J2405

== ENCOUNTER → 2016-08-15 | Outpatient (CLI) | payer MEDICARE, MEDICAID, OTHER ==
--- NOTE | 2016-08-15 16:22 | REP ---
DIAGNOSTIC MAMMOGRAM RIGHT BREAST WITH RIGHT BREAST ULTRASOUND: Diagnostic mammogram of the right breast was performed for two palpable abnormalities in the lower right breast. The areas are marked on the skin with circular markers. There are no comparison studies. Breast parenchyma is predominately fatty replaced. No mass, architectural distortion of clustered microcalcifications are seen in the right breast. Real-time sonographic evaluation of the right breast is performed inferiorly at the site of the reported palpable abnormalities. Superficially there are multiple subcutaneous cystic structures most consistent with sebaceous cysts. The larges measures 5 x 5 x 8 mm. A shunt tube is also seen in the posterior right breast. No suspicious masses are seen. IMPRESSION: ACR 2 benign. No mammographic abnormality seen in the right breast at the site of the reported palpable abnormalities inferiorly. By ultrasound there appear to be subcutaneous complex cystic structures most consistent with sebaceous cysts. The largest is 5 x 5 x 8 mm. Clinical correlation and followup is recommended. BI-RADS/ACR category 2 mammogram. Benign finding(s). Routine annual screening mammography (for women over age 40). This mammogram was interpreted with the aid of an FDA-approved computer-aided detection system. The patient states she had a clinical breast exam in 08/2016. The patient letter being requested is M2. Signed by Brayden Esteban MD 08/15/2016 04:26 P
== END ==
LOC: M RAD 13:22
PROVIDERS: ATTEND Family Medicine
DX: N63 Unspecified lump in breast (principal)
CPT/HCPCS: 76642; G0206

== ENCOUNTER 2016-10-12 19:20 | Emergency (ER) | payer MEDICARE, MEDICAID, OTHER ==
[~2016-10-12] VITALS: Ht 170.2 cm; Wt 160.1 kg
[2016-10-12 19:21] VITALS: BP 125/84
[2016-10-12] MEDS ORDERED: BUSP5TA PO (19:45)
== END 2016-10-12 20:04 | disposition left against medical advice (07) ==
LOC: M ED 19:54
DX: R29.6 Repeated falls (principal); Z53.21 Procedure and treatment not carried out due to patient leaving prior to being seen by health care provider

== ENCOUNTER → 2016-12-01 | Outpatient (CLI) | payer MEDICARE, MEDICAID, OTHER ==
[~2016-12-01] MED LIST changes: +HYDR-3363 PO; -HYDR-4274 PO; -HYDR25T PO; +HYDR50TA70 PO; +LAMI1TAB9 PO; -LAMI200T3 PO; +LEVAINH INH; -LYRI100C10 PO; -PERC10TA17 PO; +PERC10TA26 PO; +PERC7.5T11 PO; -PERC7.5T3 PO; +PREG100CA PO; -XOPEAER INH
== END ==
LOC: M SLEEP 19:52
PROVIDERS: ATTEND Nurse Practitioner Adult Health
DX: G47.33 Obstructive sleep apnea (adult) (pediatric) (principal); Z53.29 Procedure and treatment not carried out because of patient's decision for other reasons

== ENCOUNTER → 2016-12-12 | Outpatient (CLI) | payer MEDICARE, MEDICAID ==
--- NOTE | 2016-12-12 15:11 | REP ---
CT Head without contrast HISTORY: Pseudotumor COMPARISON: 06/26/2016 There is no intraparenchymal hemorrhage, acute infarct, mass or midline shift. A shunt is present in the anterior horn of the right lateral ventricle. There is no hydrocephalus. There is no extra cerebral collection. There is no fracture. The visualized sinuses are clear. IMPRESSION: A shunt is present in the right lateral ventricle. There is no hydrocephalus. Signed by Eric Clement MD 12/12/2016 03:02 P
== END ==
LOC: M RAD 14:24
PROVIDERS: ATTEND Neurological Surgery
DX: G93.2 Benign intracranial hypertension (principal); Z98.2 Presence of cerebrospinal fluid drainage device

== ENCOUNTER → 2016-12-12 | Outpatient (CLI) | payer MEDICARE, MEDICAID ==
[2016-12-12 15:38] LABS: MEAN CORPUSCULAR HEMOGLOBIN 31.9 pg (27.0-33.0); MEAN CORPUSCULAR HGB CONC 34.6 g/dl (32.0-36.5); MEAN CORPUSCULAR VOLUME 92.1 fl (80.0-96.0); RED CELL DISTRIBUTION WIDTH 15.9 % (11.5-14.5); WHITE BLOOD COUNT 10.2 K/mm3 (4.0-10.0)
[2016-12-12 21:22] LABS: ALBUMIN 3.9 GM/DL (3.2-5.2); ALBUMIN/GLOBULIN RATIO 1.11 (1.00-1.93); ALKALINE PHOSPHATASE 180 U/L (45-117); ALT/SGPT 58 U/L (12-78); ANION GAP 9 MEQ/L (8-16); AST/SGOT 37 U/L (15-37); BILIRUBIN,TOTAL 0.7 MG/DL (0.2-1.0); BLOOD UREA NITROGEN 9 MG/DL (7-18); CALCIUM LEVEL 9.1 MG/DL (8.5-10.1); CARBON DIOXIDE LEVEL 26 MEQ/L (21-32); CHLORIDE LEVEL 103 MEQ/L (98-107); CREATININE FOR GFR 0.97 MG/DL (0.55-1.02); FREE T4 1.11 NG/DL (0.76-1.46); GLOMERULAR FILTRATION RATE > 60.0 (>60); GLUCOSE, FASTING 105 MG/DL (70-105); POTASSIUM SERUM 4.3 MEQ/L (3.5-5.1); SODIUM LEVEL 138 MEQ/L (136-145); TOTAL PROTEIN 7.4 GM/DL (6.4-8.2)
== END ==
LOC: M LAB 15:04
PROVIDERS: ATTEND Family Medicine
DX: E03.9 Hypothyroidism, unspecified (principal); G93.2 Benign intracranial hypertension; Z98.2 Presence of cerebrospinal fluid drainage device

== ENCOUNTER → 2017-07-17 | Outpatient (CLI) | payer MEDICARE, MEDICAID | LOC: M RAD 11:18 | DX: G93.2 Benign intracranial hypertension (principal); Z96.9 Presence of functional implant, unspecified | CPT/HCPCS: 70450 ==

== ENCOUNTER → 2017-11-22 | Outpatient (REF) | payer MEDICARE, MEDICAID ==
[2017-11-22 18:01] LABS: BASO # 0.2 10^3/uL (0.0-0.2); BASO % 1.5 % (0.0-1.0); EOS # 0.5 10^3/uL (0.0-0.50); EOS % 4.8 % (0.0-3.0); HEMATOCRIT 54.7 % (36.0-47.0); HEMOGLOBIN 18.4 g/dl (12.0-15.5); IMMATURE GRANULOCYTE % 1.9 % (0-3.0); LYMPH # 1.8 10^3/uL (1.5-4.5); LYMPH % 17.8 % (24.0-44.0); MEAN CORPUSCULAR HEMOGLOBIN 31.8 pg (27.0-33.0); MEAN CORPUSCULAR HGB CONC 33.6 g/dl (32.0-36.5); MEAN CORPUSCULAR VOLUME 94.5 fl (80.0-96.0); MONO # 0.4 10^3/uL (0.0-0.8); MONO % 3.5 % (0.0-5.0); NEUTROPHILS # 7.2 10^3/uL (1.8-7.7); NEUTROPHILS % 70.5 % (36.0-66.0); PLATELET COUNT, AUTOMATED 229 10^3/uL (150-450); RED BLOOD COUNT 5.79 10^6/uL (4.00-5.40); RED CELL DISTRIBUTION WIDTH 17.8 % (11.5-14.5); WHITE BLOOD COUNT 10.3 10^3/uL (4.0-10.0)
[2017-11-22 18:22] LABS: ALBUMIN 3.8 GM/DL (3.2-5.2); ALBUMIN/GLOBULIN RATIO 0.97 (1.00-1.93); ALKALINE PHOSPHATASE 278 U/L (45-117); ALT/SGPT 88 U/L (12-78); ANION GAP 7 MEQ/L (8-16); AST/SGOT 40 U/L (7-37); BILIRUBIN,TOTAL 0.3 MG/DL (0.2-1.0); BLOOD UREA NITROGEN 7 MG/DL (7-18); C REACTIVE PROTEIN QUANTITATIV 2.81 MG/DL (0.00-0.30); CALCIUM LEVEL 9.4 MG/DL (8.5-10.1); CARBON DIOXIDE LEVEL 30 MEQ/L (21-32); CHLORIDE LEVEL 100 MEQ/L (98-107); CREATININE FOR GFR 1.04 MG/DL (0.55-1.30); GLOMERULAR FILTRATION RATE > 60.0 (>60); GLUCOSE, FASTING 181 MG/DL (70-100); IMMUNOGLOBULIN G 977 MG/DL (681-1648); IMMUNOGLOBULIN M 139 MG/DL (40-230); POTASSIUM SERUM 4.9 MEQ/L (3.5-5.1); SODIUM LEVEL 137 MEQ/L (136-145); TOTAL PROTEIN 7.7 GM/DL (6.4-8.2)
[2017-11-23 12:21] LABS: HEPATITIS C VIRUS ABY INDEX < 0.0 INDEX (<0.8)
== END ==
LOC: M SFHCPLAZ 14:23
DX: L73.2 Hidradenitis suppurativa (principal); L81.8 Other specified disorders of pigmentation; L02.412 Cutaneous abscess of left axilla; L02.211 Cutaneous abscess of abdominal wall
CPT/HCPCS: 80053

== ENCOUNTER 2017-12-04 09:26 | Emergency (ER) | payer MEDICARE, MEDICAID ==
[2017-12-04] MEDS: PERCOCET 5MG/325MG TAB PO (10:41)
[2017-12-04] MEDS: ONDANSETRON 4 MG ORAL DISINTEGRATING TAB (Q0162 PER 1MG) PO (10:41)
[2017-12-04] MEDS: PROMETHAZINE INJ 25 MG/ML VIAL (J2550) IM (11:28)
== END 2017-12-04 12:00 | disposition home or self-care (01) ==
LOC: M ED 09:26
DX: T14.8XXA Other injury of unspecified body region, initial encounter (principal); G89.4 Chronic pain syndrome; W19.XXXA Unspecified fall, initial encounter; Y92.098 Other place in other non-institutional residence as the place of occurrence of the external cause; M54.5 Low back pain; F60.3 Borderline personality disorder; F31.9 Bipolar disorder, unspecified; J45.909 Unspecified asthma, uncomplicated; G93.2 Benign intracranial hypertension; H54.1213 Low vision right eye category 1, blindness left eye category 3; F17.200 Nicotine dependence, unspecified, uncomplicated; Z88.8 Allergy status to other drugs, medicaments and biological substances; Z88.1 Allergy status to other antibiotic agents; Z88.0 Allergy status to penicillin; Z79.899 Other long term (current) drug therapy
CPT/HCPCS: Q0162

== ENCOUNTER 2018-01-27 10:01 | Emergency (ER) | payer MEDICARE, MEDICAID ==
[2018-01-27] MEDS: NS 1,000 ML IV ×3 (10:50→14:37)
[2018-01-27] MEDS: MORPHINE 4 MG/ML 1ML VIAL/SYRINGE (J2270) IV ×2 (10:51→16:13)
[2018-01-27 11:07] LABS: BASO # 0.1 10^3/uL (0.0-0.2); EOS # 0.3 10^3/uL (0.0-0.50); HEMATOCRIT 52.9 % (36.0-47.0); HEMOGLOBIN 17.7 g/dl (12.0-15.5); IMMATURE GRANULOCYTE % 1.4 % (0-3.0); LYMPH # 1.7 10^3/uL (1.5-4.5); LYMPH % 15.8 % (24.0-44.0); MEAN CORPUSCULAR HEMOGLOBIN 30.9 pg (27.0-33.0); MEAN CORPUSCULAR HGB CONC 33.5 g/dl (32.0-36.5); MEAN CORPUSCULAR VOLUME 92.3 fl (80.0-96.0); MONO # 0.4 10^3/uL (0.0-0.8); MONO % 3.2 % (0.0-5.0); NEUTROPHILS # 8.3 10^3/uL (1.8-7.7); NEUTROPHILS % 75.6 % (36.0-66.0); PLATELET COUNT, AUTOMATED 201 10^3/uL (150-450); RED BLOOD COUNT 5.73 10^6/uL (4.00-5.40); RED CELL DISTRIBUTION WIDTH 15.8 % (11.5-14.5); WHITE BLOOD COUNT 10.9 10^3/uL (4.0-10.0)
[2018-01-27] MEDS: ONDANSETRON 4MG/2ML VIAL (J2405) IV (11:17)
[2018-01-27] MEDS: METOCLOPRAMIDE INJ 10MG/2ML VIAL (J2765) IV ×2 (11:22→16:12)
[2018-01-27] MEDS: diphenhydrAMINE INJ 50MG/ML VIAL (J1200) IV (11:22)
[2018-01-27 11:38] LABS: ALBUMIN 3.7 GM/DL (3.2-5.2); ALBUMIN/GLOBULIN RATIO 0.79 (1.00-1.93); ALKALINE PHOSPHATASE 314 U/L (45-117); ALT/SGPT 73 U/L (12-78); ANION GAP 11 MEQ/L (8-16); AST/SGOT 28 U/L (7-37); BILIRUBIN,DIRECT 0.2 MG/DL (0.0-0.2); BILIRUBIN,TOTAL 0.6 MG/DL (0.2-1.0); BLOOD UREA NITROGEN 9 MG/DL (7-18); CALCIUM LEVEL 9.3 MG/DL (8.5-10.1); CARBON DIOXIDE LEVEL 28 MEQ/L (21-32); CHLORIDE LEVEL 96 MEQ/L (98-107); GLOMERULAR FILTRATION RATE 54.1 (>60); GLUCOSE, FASTING 434 MG/DL (70-100); LIPASE 147 U/L (73-393); POTASSIUM SERUM 4.2 MEQ/L (3.5-5.1); SODIUM LEVEL 135 MEQ/L (136-145); TOTAL PROTEIN 8.4 GM/DL (6.4-8.2)
[2018-01-27 11:40] LABS: LACTIC ACID SEPSIS PROTOCOL 2.2 MMOL/L (0.4-2.0)
[2018-01-27 12:10] LABS: VENOUS BASE EXCESS 2.3 (-2.0-2.0); VENOUS HCO3 27.4 MEQ/L (23.0-27.0); VENOUS PARTIAL PRESSURE CO2 43.9 mmHg (38.0-50.0); VENOUS PARTIAL PRESSURE O2 76.3 mmHg (30.0-50.0); VENOUS PH 7.413 UNITS (7.330-7.430); VENOUS STANDARD HCO3 26.5 MEQ/L; VENOUS TOTAL CO2 28.7 MEQ/L (24.0-28.0)
[2018-01-27 12:11] LABS: ACETONE/KETONE 4.03 MG/DL (<2.81)
[2018-01-27 13:59] LABS: VENOUS O2 SATURATION 95.4 % (60.0-80.0)
[2018-01-27 14:08] LABS: BEDSIDE GLUCOSE 361 MG/DL (70-105)
[2018-01-27 14:10] LABS: ESTIMATED AVERAGE GLUCOSE 200 MG/DL (60-110); HEMOGLOBIN A1c 8.6 %
[2018-01-27] MEDS: HumuLIN R (REGULAR) INSULIN (NovoLIN R) **100U/ML** PER UNIT IV (14:40)
[2018-01-27 15:43] LABS: BEDSIDE GLUCOSE 359 MG/DL (70-105)
[2018-01-27] MEDS ORDERED: MORPHINE 4 MG/ML 1ML VIAL/SYRINGE (J2270) IV (16:00)
== END 2018-01-27 16:35 | disposition home or self-care (01) ==
LOC: M ED 10:01
DX: E11.65 Type 2 diabetes mellitus with hyperglycemia (principal); T85.09XA Other mechanical complication of ventricular intracranial (communicating) shunt, initial encounter; Y75.2 Prosthetic and other implants, materials and neurological devices associated with adverse incidents; R11.2 Nausea with vomiting, unspecified; R19.7 Diarrhea, unspecified; G93.2 Benign intracranial hypertension; E03.9 Hypothyroidism, unspecified; F42.9 Obsessive-compulsive disorder, unspecified; F41.9 Anxiety disorder, unspecified; F43.10 Post-traumatic stress disorder, unspecified; F60.3 Borderline personality disorder; F17.200 Nicotine dependence, unspecified, uncomplicated; Z88.8 Allergy status to other drugs, medicaments and biological substances; Z88.0 Allergy status to penicillin; Z88.1 Allergy status to other antibiotic agents; Z88.3 Allergy status to other anti-infective agents; Z79.899 Other long term (current) drug therapy

== ENCOUNTER 2018-01-28 09:15 | Inpatient (IN) | payer MEDICARE, MEDICAID ==
[2018-01-28 10:03] LABS: BEDSIDE GLUCOSE 320 MG/DL (70-105)
[2018-01-28] MEDS: NS 1,000 ML IV ×4 (10:27→15:29)
[2018-01-28] MEDS: MORPHINE 4 MG/ML 1ML VIAL/SYRINGE (J2270) IV ×10 (10:27→23:52)
[2018-01-28] MEDS: METOCLOPRAMIDE INJ 10MG/2ML VIAL (J2765) IV ×4 (10:27→17:08)
[2018-01-28 11:05] LABS: BASO # 0.1 10^3/uL (0.0-0.2); BASO % 1.2 % (0.0-1.0); EOS # 0.5 10^3/uL (0.0-0.50); EOS % 4.2 % (0.0-3.0); HEMOGLOBIN 17.9 g/dl (12.0-15.5); IMMATURE GRANULOCYTE % 1.7 % (0-3.0); LYMPH # 2.1 10^3/uL (1.5-4.5); LYMPH % 18.4 % (24.0-44.0); MEAN CORPUSCULAR HEMOGLOBIN 31.3 pg (27.0-33.0); MEAN CORPUSCULAR HGB CONC 33.1 g/dl (32.0-36.5); MEAN CORPUSCULAR VOLUME 94.4 fl (80.0-96.0); MONO # 0.4 10^3/uL (0.0-0.8); MONO % 3.3 % (0.0-5.0); NEUTROPHILS % 71.2 % (36.0-66.0); PLATELET COUNT, AUTOMATED 190 10^3/uL (150-450); RED BLOOD COUNT 5.72 10^6/uL (4.00-5.40); RED CELL DISTRIBUTION WIDTH 15.7 % (11.5-14.5); WHITE BLOOD COUNT 11.2 10^3/uL (4.0-10.0)
[2018-01-28 11:15] LABS: PROTHROMBIN TIME 13.3 SECONDS (12.1-14.4)
[2018-01-28 11:16] LABS: PARTIAL THROMBOPLASTIN TIME 28.6 SECONDS (25.4-37.6)
[2018-01-28 11:31] LABS: LACTIC ACID SEPSIS PROTOCOL 1.1 MMOL/L (0.4-2.0)
[2018-01-28 11:33] LABS: ALBUMIN 3.7 GM/DL (3.2-5.2); ALBUMIN/GLOBULIN RATIO 0.88 (1.00-1.93); ALKALINE PHOSPHATASE 291 U/L (45-117); ALT/SGPT 63 U/L (12-78); AMYLASE 17 U/L (25-115); ANION GAP 9 MEQ/L (8-16); AST/SGOT 29 U/L (7-37); BILIRUBIN,DIRECT 0.2 MG/DL (0.0-0.2); BILIRUBIN,TOTAL 0.6 MG/DL (0.2-1.0); BLOOD UREA NITROGEN 8 MG/DL (7-18); CALCIUM LEVEL 8.8 MG/DL (8.5-10.1); CARBON DIOXIDE LEVEL 24 MEQ/L (21-32); CHLORIDE LEVEL 103 MEQ/L (98-107); CPK CREATINE PHOSPHOKINASE 27 U/L (26-192); CREATININE FOR GFR 0.93 MG/DL (0.55-1.30); GLOMERULAR FILTRATION RATE > 60.0 (>60); GLUCOSE, FASTING 299 MG/DL (70-100); LIPASE 167 U/L (73-393); MB/CK RELATIVE INDEX 4.44 (< OR =4); POTASSIUM SERUM 4.2 MEQ/L (3.5-5.1); SODIUM LEVEL 136 MEQ/L (136-145); TOTAL PROTEIN 7.9 GM/DL (6.4-8.2); TROPONIN I < 0.02 NG/ML (< 0.10)
[2018-01-28] MEDS ORDERED: ISOVUE-370 76% 100ML VIAL (Q9967) As Ordered ×2 (11:42)
[2018-01-28 11:47] LABS: KETONE, URINE AUTO RFX TRACE mg/dL (NEGATIVE); LEUKOCYTE ESTERASE UR AUTO RFX NEGATIVE (NEGATIVE); MUCUS, URINE RFX SMALL (NEGATIVE); NITRITE, URINE AUTO RFX NEGATIVE (NEGATIVE); RBC, URINE AUTO RFX 1 /HPF (0-3); SPECIFIC GRAVITY UR AUTO RFX 1.026 (1.002-1.035); SQUAM EPITHELIAL CELL UR AURFX 1 /HPF (0-6); WBC, URINE AUTO RFX 3 /HPF (0-3)
[2018-01-28 12:58] LABS: CONTROL LINE HCG INT CTR LINE PRESENT; HCG, SERUM QUALITATIVE NEGATIVE (NEGATIVE)
[2018-01-28] MEDS: ONDANSETRON 4MG/2ML VIAL (J2405) IV ×2 (13:24)
[2018-01-28] MEDS: PANTOPRAZOLE SODIUM 40 MG in D5W 50 ML IV ×2 (13:40→18:19)
[2018-01-28] MEDS ORDERED: VANCOMYCIN ORAL SOL 250MG/5ML ORAL SYRINGE PO ×2 (14:30)
[2018-01-28] MEDS ORDERED: DEXTROSE 50% 50 ML SYRINGE IV ×2 (14:45)
[2018-01-28] MEDS ORDERED: GLUCAGON FOR INJ 1 MG VIAL (J1610) SC ×2 (14:45)
[2018-01-28] MEDS ORDERED: GLUCOSE 4 GM CHEW TABLET PO ×2 (14:45)
[2018-01-28] MEDS ORDERED: LEVALBUTEROL 1.25 MG/0.5 ML CONCENTRATE NEB INH ×2 (15:00)
[2018-01-28] MEDS: VANCOMYCIN ORAL SOL 250MG/5ML ORAL SYRINGE PO ×4 (15:27→18:20)
[2018-01-28 15:43] LABS: FERRITIN 167 NG/ML (8-252); IRON (FE) 59 UG/DL (50-170); PERCENT SATURATION 18.4 % (13.2-45.0); TOTAL IRON BINDING CAPACITY 321 UG/DL (250-450)
[2018-01-28 15:47] LABS: FOLATE 10.1 NG/ML (>5.4)
[2018-01-28] MEDS: PREGABALIN 100 MG CAP (LYRICA) PO ×4 (17:07→20:51)
[2018-01-28 17:31] LABS: BEDSIDE GLUCOSE 234 MG/DL (70-105)
[2018-01-28] MEDS: HumaLOG INSULIN (NovoLOG) PER UNIT SC ×2 (18:19)
[2018-01-28 18:26] LABS: HEMATOCRIT 48.7 % (36.0-47.0); MEAN CORPUSCULAR HEMOGLOBIN 30.9 pg (27.0-33.0); MEAN CORPUSCULAR HGB CONC 32.9 g/dl (32.0-36.5); PLATELET COUNT, AUTOMATED 156 10^3/uL (150-450); RED BLOOD COUNT 5.18 10^6/uL (4.00-5.40); RED CELL DISTRIBUTION WIDTH 15.6 % (11.5-14.5); WHITE BLOOD COUNT 10.1 10^3/uL (4.0-10.0)
[2018-01-28] MEDS: RAMELTEON 8 MG TAB (ROZEREM) PO ×2 (23:50)
[2018-01-29 00:33] LABS: HEMATOCRIT 48.3 % (36.0-47.0); HEMOGLOBIN 15.9 g/dl (12.0-15.5); MEAN CORPUSCULAR HGB CONC 32.9 g/dl (32.0-36.5); MEAN CORPUSCULAR VOLUME 94.2 fl (80.0-96.0); PLATELET COUNT, AUTOMATED 172 10^3/uL (150-450); RED BLOOD COUNT 5.13 10^6/uL (4.00-5.40); RED CELL DISTRIBUTION WIDTH 15.6 % (11.5-14.5); WHITE BLOOD COUNT 10.5 10^3/uL (4.0-10.0)
[2018-01-29] MEDS: HumaLOG INSULIN (NovoLOG) PER UNIT SC ×10 (00:36→20:22)
[2018-01-29] MEDS: VANCOMYCIN ORAL SOL 250MG/5ML ORAL SYRINGE PO ×8 (00:37→17:39)
[2018-01-29] MEDS: PANTOPRAZOLE SODIUM 40 MG in D5W 50 ML IV ×5 (00:38→20:22)
[2018-01-29] MEDS: METOCLOPRAMIDE INJ 10MG/2ML VIAL (J2765) IV ×6 (00:38→16:47)
[2018-01-29] MEDS: NS 1,000 ML IV ×4 (00:38→10:34)
[2018-01-29 00:52] LABS: BEDSIDE GLUCOSE 210 MG/DL (70-105)
[2018-01-29] MEDS: MORPHINE 4 MG/ML 1ML VIAL/SYRINGE (J2270) IV ×8 (01:59→09:51)
[2018-01-29] MEDS: ONDANSETRON 4MG/2ML VIAL (J2405) IV ×2 (03:44)
[2018-01-29 05:52] LABS: HEMATOCRIT 48.6 % (36.0-47.0); MEAN CORPUSCULAR HEMOGLOBIN 30.9 pg (27.0-33.0); MEAN CORPUSCULAR HGB CONC 32.9 g/dl (32.0-36.5); MEAN CORPUSCULAR VOLUME 93.8 fl (80.0-96.0); PLATELET COUNT, AUTOMATED 170 10^3/uL (150-450); RED BLOOD COUNT 5.18 10^6/uL (4.00-5.40); RED CELL DISTRIBUTION WIDTH 15.7 % (11.5-14.5); WHITE BLOOD COUNT 9.9 10^3/uL (4.0-10.0)
[2018-01-29] MEDS: LEVOTHYROXINE 100MCG TABLET (0.1MG) PO ×2 (06:00)
[2018-01-29 06:16] LABS: BEDSIDE GLUCOSE 207 MG/DL (70-105)
[2018-01-29 06:22] LABS: ALBUMIN 3.5 GM/DL (3.2-5.2); ALBUMIN/GLOBULIN RATIO 0.92 (1.00-1.93); ALKALINE PHOSPHATASE 228 U/L (45-117); ALT/SGPT 54 U/L (12-78); ANION GAP 10 MEQ/L (8-16); AST/SGOT 29 U/L (7-37); BILIRUBIN,TOTAL 0.6 MG/DL (0.2-1.0); BLOOD UREA NITROGEN 8 MG/DL (7-18); CALCIUM LEVEL 8.6 MG/DL (8.5-10.1); CARBON DIOXIDE LEVEL 23 MEQ/L (21-32); CHLORIDE LEVEL 105 MEQ/L (98-107); CHOLESTEROL LEVEL 229 MG/DL (<200); CHOLESTEROL RISK RATIO 8.481 (<5); GLOMERULAR FILTRATION RATE > 60.0 (>60); GLUCOSE, FASTING 190 MG/DL (70-100); HDL CHOLESTEROL 27 MG/DL (>40); MAGNESIUM LEVEL 1.9 MG/DL (1.8-2.4); NON-HDL-C 202 MG/DL; POTASSIUM SERUM 3.9 MEQ/L (3.5-5.1); SODIUM LEVEL 138 MEQ/L (136-145); TOTAL PROTEIN 7.3 GM/DL (6.4-8.2); TRIGLYCERIDES LEVEL 502 MG/DL (<150)
[2018-01-29] MEDS: lamoTRIgine 100MG TAB PO ×2 (08:25)
[2018-01-29] MEDS: PREGABALIN 100 MG CAP (LYRICA) PO ×6 (08:25→20:22)
[2018-01-29] MEDS: VENLAFAXINE **XR** 75MG CAPSULE PO ×2 (08:25)
[2018-01-29] MEDS: VENLAFAXINE **XR** 37.5 MG CAPSULE PO ×2 (08:25)
[2018-01-29] MEDS: INFLUENZA QUADRIVALENT PF VACCINE 0.5ML SYRINGE (90686) IM ×2 (08:26)
[2018-01-29] MEDS ORDERED: CYCLOBENZAPRINE 10 MG TAB PO ×2 (11:00)
[2018-01-29 11:50] LABS: BEDSIDE GLUCOSE 306 MG/DL (70-105)
[2018-01-29] MEDS: CYCLOBENZAPRINE 10 MG TAB PO ×2 (11:55)
[2018-01-29] MEDS: oxyCODONE 5MG TAB PO ×4 (11:55→17:40)
[2018-01-29] MEDS: PERCOCET 5MG/325MG TAB PO ×4 (11:56→17:40)
[2018-01-29 12:01] LABS: HEMATOCRIT 48.1 % (36.0-47.0); HEMOGLOBIN 15.9 g/dl (12.0-15.5); MEAN CORPUSCULAR HEMOGLOBIN 30.6 pg (27.0-33.0); MEAN CORPUSCULAR HGB CONC 33.1 g/dl (32.0-36.5); MEAN CORPUSCULAR VOLUME 92.7 fl (80.0-96.0); PLATELET COUNT, AUTOMATED 168 10^3/uL (150-450); RED BLOOD COUNT 5.19 10^6/uL (4.00-5.40); RED CELL DISTRIBUTION WIDTH 15.7 % (11.5-14.5); WHITE BLOOD COUNT 10.3 10^3/uL (4.0-10.0)
[2018-01-29 16:45] LABS: BEDSIDE GLUCOSE 298 MG/DL (70-105)
[2018-01-29 18:19] LABS: HEMATOCRIT 47.6 % (36.0-47.0); HEMOGLOBIN 16.1 g/dl (12.0-15.5); MEAN CORPUSCULAR HEMOGLOBIN 31.1 pg (27.0-33.0); MEAN CORPUSCULAR HGB CONC 33.8 g/dl (32.0-36.5); MEAN CORPUSCULAR VOLUME 92.1 fl (80.0-96.0); PLATELET COUNT, AUTOMATED 172 10^3/uL (150-450); RED BLOOD COUNT 5.17 10^6/uL (4.00-5.40); RED CELL DISTRIBUTION WIDTH 15.7 % (11.5-14.5); WHITE BLOOD COUNT 10.8 10^3/uL (4.0-10.0)
[2018-01-29 20:12] LABS: BEDSIDE GLUCOSE 331 MG/DL (70-105)
[2018-01-29] MEDS: RAMELTEON 8 MG TAB (ROZEREM) PO ×2 (22:38)
[2018-01-30] MEDS: PANTOPRAZOLE SODIUM 40 MG in D5W 50 ML IV ×2 (00:18→05:29)
[2018-01-30] MEDS: VANCOMYCIN ORAL SOL 250MG/5ML ORAL SYRINGE PO ×6 (00:19→13:45)
[2018-01-30] MEDS: oxyCODONE 5MG TAB PO ×6 (00:20→12:50)
[2018-01-30] MEDS: CYCLOBENZAPRINE 10 MG TAB PO ×4 (00:21→11:30)
[2018-01-30] MEDS: PERCOCET 5MG/325MG TAB PO ×6 (00:21→12:50)
[2018-01-30 00:55] LABS: HEMATOCRIT 47.4 % (36.0-47.0); HEMOGLOBIN 15.7 g/dl (12.0-15.5); MEAN CORPUSCULAR HEMOGLOBIN 31.1 pg (27.0-33.0); MEAN CORPUSCULAR HGB CONC 33.1 g/dl (32.0-36.5); MEAN CORPUSCULAR VOLUME 93.9 fl (80.0-96.0); PLATELET COUNT, AUTOMATED 142 10^3/uL (150-450); RED BLOOD COUNT 5.05 10^6/uL (4.00-5.40); RED CELL DISTRIBUTION WIDTH 15.6 % (11.5-14.5); WHITE BLOOD COUNT 7.5 10^3/uL (4.0-10.0)
[2018-01-30] MEDS: LEVOTHYROXINE 100MCG TABLET (0.1MG) PO ×2 (05:30)
[2018-01-30] MEDS: ATORVASTATIN 20 MG TAB PO ×2 (06:29)
[2018-01-30 06:45] LABS: HEMATOCRIT 48.5 % (36.0-47.0); HEMOGLOBIN 16.2 g/dl (12.0-15.5); MEAN CORPUSCULAR HEMOGLOBIN 31.1 pg (27.0-33.0); MEAN CORPUSCULAR HGB CONC 33.4 g/dl (32.0-36.5); MEAN CORPUSCULAR VOLUME 93.1 fl (80.0-96.0); PLATELET COUNT, AUTOMATED 143 10^3/uL (150-450); RED BLOOD COUNT 5.21 10^6/uL (4.00-5.40); RED CELL DISTRIBUTION WIDTH 15.3 % (11.5-14.5)
[2018-01-30 06:55] LABS: ESTIMATED AVERAGE GLUCOSE 200 MG/DL (60-110); HEMOGLOBIN A1c 8.6 %
[2018-01-30 07:06] LABS: ALBUMIN 3.3 GM/DL (3.2-5.2); ALBUMIN/GLOBULIN RATIO 0.94 (1.00-1.93); ALKALINE PHOSPHATASE 231 U/L (45-117); ALT/SGPT 49 U/L (12-78); ANION GAP 11 MEQ/L (8-16); AST/SGOT 25 U/L (7-37); BILIRUBIN,TOTAL 0.5 MG/DL (0.2-1.0); BLOOD UREA NITROGEN 4 MG/DL (7-18); CALCIUM LEVEL 8.8 MG/DL (8.5-10.1); CARBON DIOXIDE LEVEL 26 MEQ/L (21-32); CHLORIDE LEVEL 103 MEQ/L (98-107); CREATININE FOR GFR 0.83 MG/DL (0.55-1.30); GLOMERULAR FILTRATION RATE > 60.0 (>60); GLUCOSE, FASTING 255 MG/DL (70-100); MAGNESIUM LEVEL 2.2 MG/DL (1.8-2.4); POTASSIUM SERUM 4.1 MEQ/L (3.5-5.1); SODIUM LEVEL 140 MEQ/L (136-145); TOTAL PROTEIN 6.8 GM/DL (6.4-8.2)
[2018-01-30] MEDS: PREGABALIN 100 MG CAP (LYRICA) PO ×2 (08:52)
[2018-01-30] MEDS: lamoTRIgine 100MG TAB PO ×2 (08:52)
[2018-01-30] MEDS: VENLAFAXINE **XR** 37.5 MG CAPSULE PO ×2 (08:52)
[2018-01-30] MEDS: GLIMEPIRIDE 2 MG TAB PO ×2 (08:53)
[2018-01-30] MEDS: PANTOPRAZOLE 40MG TAB (PROTONIX) PO ×2 (08:53)
[2018-01-30] MEDS: VENLAFAXINE **XR** 75MG CAPSULE PO ×2 (08:53)
[2018-01-30] MEDS: HumaLOG INSULIN (NovoLOG) PER UNIT SC ×4 (08:55→12:00)
[2018-01-30 12:17] LABS: HEMATOCRIT 49.1 % (36.0-47.0); HEMOGLOBIN 16.5 g/dl (12.0-15.5); MEAN CORPUSCULAR HEMOGLOBIN 30.7 pg (27.0-33.0); MEAN CORPUSCULAR HGB CONC 33.6 g/dl (32.0-36.5); MEAN CORPUSCULAR VOLUME 91.3 fl (80.0-96.0); PLATELET COUNT, AUTOMATED 158 10^3/uL (150-450); RED BLOOD COUNT 5.38 10^6/uL (4.00-5.40); RED CELL DISTRIBUTION WIDTH 15.3 % (11.5-14.5); WHITE BLOOD COUNT 8.8 10^3/uL (4.0-10.0)
== END 2018-01-30 14:20 | disposition home or self-care (01) | DRG 372 ==
LOC: M ED 09:15 → M MS5PR 01-29 18:15 → M ED INP 15:05 → M PCU 16:38
PROVIDERS: Internal Medicine
DX: A04.72 Enterocolitis due to Clostridium difficile, not specified as recurrent (principal); Z68.43 Body mass index [BMI] 50.0-59.9, adult; E66.01 Morbid (severe) obesity due to excess calories; T85.09XA Other mechanical complication of ventricular intracranial (communicating) shunt, initial encounter; F41.9 Anxiety disorder, unspecified; L73.2 Hidradenitis suppurativa; F17.210 Nicotine dependence, cigarettes, uncomplicated; E11.65 Type 2 diabetes mellitus with hyperglycemia; F32.9 Major depressive disorder, single episode, unspecified; E78.5 Hyperlipidemia, unspecified; M79.7 Fibromyalgia; R26.81 Unsteadiness on feet; J45.909 Unspecified asthma, uncomplicated; D50.9 Iron deficiency anemia, unspecified; E03.9 Hypothyroidism, unspecified; Z90.710 Acquired absence of both cervix and uterus; Z79.899 Other long term (current) drug therapy; Z91.040 Latex allergy status; Z88.0 Allergy status to penicillin; Z88.1 Allergy status to other antibiotic agents; Z88.6 Allergy status to analgesic agent; Z88.8 Allergy status to other drugs, medicaments and biological substances; Y75.2 Prosthetic and other implants, materials and neurological devices associated with adverse incidents; R11.2 Nausea with vomiting, unspecified; R19.7 Diarrhea, unspecified; G93.2 Benign intracranial hypertension; F42.9 Obsessive-compulsive disorder, unspecified; F43.10 Post-traumatic stress disorder, unspecified; F60.3 Borderline personality disorder; Z88.3 Allergy status to other anti-infective agents

== ENCOUNTER 2018-02-19 22:22 | Emergency (ER) | payer MEDICARE, MEDICAID ==
[2018-02-19] MEDS: diphenhydrAMINE INJ 50MG/ML VIAL (J1200) IV ×2 (22:53)
[2018-02-19] MEDS: METOCLOPRAMIDE INJ 10MG/2ML VIAL (J2765) IV ×2 (23:00)
[2018-02-19] MEDS: NS 1,000 ML IV ×2 (23:00)
[2018-02-19 23:40] LABS: HEMATOCRIT 45.2 % (36.0-47.0); HEMOGLOBIN 14.8 g/dl (12.0-15.5); MEAN CORPUSCULAR HEMOGLOBIN 31.2 pg (27.0-33.0); MEAN CORPUSCULAR HGB CONC 32.7 g/dl (32.0-36.5); MEAN CORPUSCULAR VOLUME 95.4 fl (80.0-96.0); PLATELET COUNT, AUTOMATED 157 10^3/uL (150-450); RED BLOOD COUNT 4.74 10^6/uL (4.00-5.40); RED CELL DISTRIBUTION WIDTH 17.7 % (11.5-14.5); WHITE BLOOD COUNT 11.7 10^3/uL (4.0-10.0)
[2018-02-20 00:04] LABS: ALBUMIN/GLOBULIN RATIO 0.91 (1.00-1.93); ALKALINE PHOSPHATASE 242 U/L (45-117); ALT/SGPT 35 U/L (12-78); ANION GAP 7 MEQ/L (8-16); AST/SGOT 20 U/L (7-37); BILIRUBIN,DIRECT 0.2 MG/DL (0.0-0.2); BILIRUBIN,TOTAL 0.3 MG/DL (0.2-1.0); BLOOD UREA NITROGEN 5 MG/DL (7-18); CALCIUM LEVEL 8.3 MG/DL (8.5-10.1); CARBON DIOXIDE LEVEL 33 MEQ/L (21-32); CHLORIDE LEVEL 101 MEQ/L (98-107); CREATININE FOR GFR 0.84 MG/DL (0.55-1.30); GLOMERULAR FILTRATION RATE > 60.0 (>60); GLUCOSE, FASTING 161 MG/DL (70-100); POTASSIUM SERUM 3.9 MEQ/L (3.5-5.1); SODIUM LEVEL 141 MEQ/L (136-145); TOTAL PROTEIN 6.3 GM/DL (6.4-8.2)
[2018-02-20 00:05] LABS: POS COUNT POS FLAG; POSITIVE MORPH POS FLAG
[2018-02-20 00:06] LABS: ADD MANUAL DIFFER YES; DIFF SLIDE NUMBER 404
[2018-02-20] MEDS: MORPHINE 4 MG/ML 1ML VIAL/SYRINGE (J2270) IV ×2 (00:15)
[2018-02-20 00:36] LABS: ANISOCYTOSIS 1+; ATYPICAL LYMPH 5 % (0-5); BANDS 1 % (< 11); EOSINOPHILS 4 % (0-5); LYMPHOCYTES 14 % (16-52); MONOCYTES 2 % (0-8); NEUTROPHILS 74 % (35-75); PLATELET CLUMPS SMALL AMT; PLATELET ESTIMATE NORMAL (NORMAL)
[2018-02-20 00:37] LABS: POLYCHROMASIA 1+
[2018-02-22 00:08] LABS: LAMOTRIGINE (LAMICTAL) 1.7 ug/mL (2.0-20.0)
== END 2018-02-20 01:26 | disposition home or self-care (01) ==
LOC: M ED 02-20 01:26
DX: G43.909 Migraine, unspecified, not intractable, without status migrainosus (principal); G93.2 Benign intracranial hypertension; M79.7 Fibromyalgia; F43.21 Adjustment disorder with depressed mood; F90.9 Attention-deficit hyperactivity disorder, unspecified type; F60.3 Borderline personality disorder; M54.9 Dorsalgia, unspecified; E03.9 Hypothyroidism, unspecified; H54.8 Legal blindness, as defined in USA; Z98.2 Presence of cerebrospinal fluid drainage device; Z88.6 Allergy status to analgesic agent; Z88.3 Allergy status to other anti-infective agents; Z91.040 Latex allergy status; Z88.1 Allergy status to other antibiotic agents; Z88.0 Allergy status to penicillin; Z79.899 Other long term (current) drug therapy; Z79.84 Long term (current) use of oral hypoglycemic drugs; Z79.2 Long term (current) use of antibiotics
CPT/HCPCS: J2270

== ENCOUNTER 2018-05-19 11:55 | Emergency (ER) | payer MEDICARE, MEDICAID ==
[~2018-05-19] VITALS: Ht 170.2 cm; Wt 150.0 kg
[~2018-05-19 11:55] MED LIST changes: +ATOR1TAB21 PO; -EFFE150C PO; +EFFE150C2 PO; +EFFE37.5 PO; -LASI20TA PO; +LASI20TA3 PO; +LEVO200T31 PO; +LYRI200C PO; +METF500T13 PO; +ONDA4TAB6 PO; +VANC125C2 PO; +VITA200015 PO
[2018-05-19] MEDS ORDERED: diphenhydrAMINE INJ 50MG/ML VIAL (J1200) IV STA (12:42)
[2018-05-19] MEDS ORDERED: METOCLOPRAMIDE INJ 10MG/2ML VIAL (J2765) IV ONE (12:45)
[2018-05-19] MEDS ORDERED: NS 500 ML IV ONE (12:45)
[2018-05-19] MEDS ORDERED: KETOROLAC 30 MG/ML VIAL (J1885) IV ONE (12:45)
[2018-05-19] MEDS ORDERED: oxyCODONE 5MG TAB PO ONE (13:00)
[2018-05-19] MEDS ORDERED: PERCOCET 5MG/325MG TAB PO ONE (13:00)
--- NOTE | 2018-05-19 13:45 | REP ---
CT brain without contrast: History: Severe headache. Comparison head CT study is from February 19, 2018. Preliminary digital zone maintenance technician radiograph demonstrates the patient's ventriculostomy catheter. The calvarium is otherwise intact. Bone window settings demonstrate a right frontal ventriculostomy catheter placement. Visualized paranasal sinuses are clear. No intraorbital abnormality is seen. The right ventriculostomy catheter is again seen to terminate in the region of the third ventricle. Lateral and third ventricles and fourth ventricles are normal in size and position and unchanged. No extra-axial fluid collection is seen. No evidence of intracranial hemorrhage, mass, infarct or midline shift. Impression: Right-sided ventriculostomy catheter remains in place. Normal sized ventricles. No acute intracranial abnormality. Electronically Signed by Alfredo Damon MD 05/19/2018 03:49 P
--- NOTE | 2018-05-19 13:47 | REP ---
Shunt series: Six views. History: Severe headache. Comparison shunt radiographs are from February 19, 2018. Findings: A right-sided ventriculoperitoneal shunt catheter is seen in place with no evidence of shunt discontinuity. The peritoneal portion of this catheter is seen coiled within the right mid to upper abdomen. There are clips in the left lower quadrant of the abdomen. Lung govea are clear. Impression: Unremarkable shunt series. No discontinuity seen. Electronically Signed by Alfredo Damon MD 05/19/2018 03:49 P
[2018-05-19 14:05] VITALS: BP 126/78
== END 2018-05-19 14:11 | disposition home or self-care (01) ==
LOC: M ED 11:55
DX: R11.2 Nausea with vomiting, unspecified (principal); R51 Headache; M54.2 Cervicalgia; M54.5 Low back pain; G93.2 Benign intracranial hypertension; Z79.899 Other long term (current) drug therapy; Z79.84 Long term (current) use of oral hypoglycemic drugs; Z88.0 Allergy status to penicillin; Z88.1 Allergy status to other antibiotic agents; Z88.8 Allergy status to other drugs, medicaments and biological substances; Z91.040 Latex allergy status
CPT/HCPCS: 70450; 75809; 96361; 96374; 96375; 99284; J1200; J1885; J2765

== ENCOUNTER 2018-05-30 11:41 | Emergency (ER) | payer MEDICARE, MEDICAID ==
[~2018-05-30] VITALS: Ht 170.2 cm; Wt 150.0 kg
[2018-05-30 11:42] VITALS: BP 153/72
== END 2018-05-30 12:40 | disposition left against medical advice (07) ==
LOC: M ED 11:41
DX: Z53.29 Procedure and treatment not carried out because of patient's decision for other reasons (principal)

== ENCOUNTER 2018-09-08 01:27 | Emergency (ER) | payer MEDICARE, OTHER ==
[~2018-09-08] VITALS: Ht 170.2 cm; Wt 150.0 kg
[~2018-09-08 01:27] MED LIST changes: -VANC125C2 PO; +VANC125C3 PO
[2018-09-08] MEDS ORDERED: ACETAMINOPHEN 500 MG TAB PO ONE (02:15)
[2018-09-08] MEDS ORDERED: NS 1,000 ML IV ONE ×2 (02:15→05:15)
[2018-09-08 03:13] LABS: BASO % 0.4 % (0.0-1.0); EOS # 0.1 10^3/uL (0.0-0.50); EOS % 1.3 % (0.0-3.0); HEMATOCRIT 41.4 % (36.0-47.0); HEMOGLOBIN 13.3 g/dl (12.0-15.5); LYMPH # 0.3 10^3/uL (1.5-4.5); LYMPH % 3.5 % (24.0-44.0); MEAN CORPUSCULAR HEMOGLOBIN 28.6 pg (27.0-33.0); MEAN CORPUSCULAR HGB CONC 32.1 g/dl (32.0-36.5); MONO # 0.3 10^3/uL (0.0-0.8); MONO % 2.7 % (0.0-5.0); NEUTROPHILS # 8.4 10^3/uL (1.8-7.7); PLATELET COUNT, AUTOMATED 147 10^3/uL (150-450); RED BLOOD COUNT 4.65 10^6/uL (4.00-5.40); WHITE BLOOD COUNT 9.2 10^3/uL (4.0-10.0)
[2018-09-08] MEDS ORDERED: ONDANSETRON 4MG/2ML VIAL (J2405) IV ONE (03:15)
[2018-09-08 03:29] LABS: APPEARANCE, URINE TURBID (CLEAR); BACTERIA, URINE AUTO 1+ (NEGATIVE); BILIRUBIN, URINE AUTO NEGATIVE (NEGATIVE); BLOOD, URINE BLOOD NEGATIVE (NEGATIVE); COLOR, URINE YELLOW (YELLOW); GLUCOSE, URINE (UA) AUTO NEGATIVE (NEGATIVE); KETONE, URINE AUTO NEGATIVE (NEGATIVE); LEUKOCYTE ESTERASE, URINE AUTO NEGATIVE (NEGATIVE); MUCUS, URINE SMALL (NEGATIVE); NITRITE, URINE AUTO NEGATIVE (NEGATIVE); PROTEIN, URINE AUTO 2+ mg/dL (NEGATIVE); RBC, URINE AUTO TNTC /HPF (0-3); SPECIFIC GRAVITY URINE AUTO 1.013 (1.002-1.035); SQUAMOUS EPITHELIAL CELL UR AU 3 /HPF (0-6); TRANSITIONAL EPITHELIAL AUTO 11 /HPF; UROBILINOGEN, URINE AUTO 0.2 mg/dL (0.0-2.0); WBC, URINE AUTO 158 /HPF (0-3)
[2018-09-08] MEDS ORDERED: KETOROLAC 30 MG/ML VIAL (J1885) IV ONE (03:30)
[2018-09-08] MEDS ORDERED: METOCLOPRAMIDE INJ 10MG/2ML VIAL (J2765) IV ONE (03:30)
[2018-09-08 03:32] LABS: ALBUMIN 3.6 GM/DL (3.2-5.2); ALT/SGPT 58 U/L (12-78); BILIRUBIN,DIRECT 0.2 MG/DL (0.0-0.2); BILIRUBIN,TOTAL 0.6 MG/DL (0.2-1.0); BLOOD UREA NITROGEN 7 MG/DL (7-18); CALCIUM LEVEL 8.7 MG/DL (8.5-10.1); CARBON DIOXIDE LEVEL 29 MEQ/L (21-32); CHLORIDE LEVEL 95 MEQ/L (98-107); GLOMERULAR FILTRATION RATE > 60.0 (>60); GLUCOSE, FASTING 198 MG/DL (70-100); POTASSIUM SERUM 4.4 MEQ/L (3.5-5.1); SODIUM LEVEL 131 MEQ/L (136-145); TOTAL PROTEIN 7.3 GM/DL (6.4-8.2)
[2018-09-08 03:45] LABS: INFLUENZA A AMPLIFICATION NEGATIVE (NEGATIVE); INFLUENZA B AMPLIFICATION NEGATIVE (NEGATIVE)
--- NOTE | 2018-09-08 05:10 | REPVR ---
EXAM: CT Abdomen and Pelvis Without Contrast EXAM DATE/TIME: 09/08/2018 4:30 AM CLINICAL HISTORY: 37 years old, female; Abdominal pain; Additional info: Renal colic TECHNIQUE: Imaging protocol: Axial computed tomography images of the abdomen and pelvis without contrast. Coronal and sagittal reformatted images were created and reviewed. Radiation optimization: All CT scans at this facility use at least one of these dose optimization techniques: automated exposure control; mA and/or kV adjustment per patient size (includes targeted exams where dose is matched to clinical indication); or iterative reconstruction. COMPARISON: CT ABD PELVIS W/O CONTRAST 01/28/2018 11:51 AM FINDINGS: Lungs: The visualized lungs are grossly clear. ABDOMEN: Liver: The liver is mildly enlarged and there is a diffuse decrease in hepatic parenchymal density, consistent with fatty infiltration. Gallbladder and bile ducts: The gallbladder appears partially contracted. No stones are identified. No biliary ductal dilation is seen. Pancreas: The pancreas is normal with no ductal dilation. Spleen: The spleen is enlarged, measuring 17 cm in length, unchanged from the prior exam. Adrenals: The adrenal glands are normal. Kidneys and ureters: There is focal high density of the distal right ureter within a few centimeters of the bladder, which seems to represent a 2 mm distal ureteral stone(image 129 of series 201). However, there is no associated hydronephrosis and this may have been present on the prior exam There is subtle right perinephric stranding. The left kidney appears normal. The left ureter appears normal with no stones or hydronephrosis. Stomach and bowel: There is fatty infiltration of the wall of the right colon, which is nonspecific and can be an incidental finding. Assessment of the bowel is somewhat limited by motion. No dilation or thickening of the small bowel or colon are seen. Appendix: Hyperdensities in the lumen of the appendix are noted, which may be ingested material or appendicoliths. There is no enlargement or thickening of the appendix. PELVIS: Bladder: The bladder is unremarkable. No stones identified. Reproductive: The uterus is small or has been resected. ABDOMEN and PELVIS: Intraperitoneal space: There is no evidence of free intraperitoneal or pelvic fluid. There is no free intraperitoneal air. Bones/joints: No suspicious osseous lesions. No acute fractures or dislocations. Soft tissues: There is a periumbilical hernia containing fat. There is a catheter in the subcutaneous tissues of the visualized lower right chest wall, extending into the peritoneal cavity in the right mid abdomen, likely a ELECTRONICS DETAIL DRAFTSPERSON shunt. The tip is in the left lower quadrant. Skin thickening and stranding in the subcutaneous fat are seen in the pannus in the lower anterior abdominal wall. There is a midline incision scar in the lower anterior abdominal wall. Vasculature: The aorta demonstrates mild atherosclerotic calcification. Lymph nodes: No lymphadenopathy is seen. IMPRESSION: 1. High density focus in the distal right ureter, probably representing a 2 mm stone in the clinical setting of renal colic. Although there is no associated hydronephrosis, there is subtle right perinephric stranding. 2. Enlarged, fatty liver and splenomegaly, without significant change. 3. Skin thickening and subcutaneous tissue stranding in the pannus in the lower anterior abdominal wall. Correlate with any signs of cellulitis. Electronically signed by: Marj Barrera On 09/08/2018 05:09:50 AM
[2018-09-08] MEDS ORDERED: MORPHINE 4 MG/ML 1ML VIAL/SYRINGE (J2270) IV ONE (05:15)
[2018-09-08] MEDS ORDERED: TAMSULOSIN 0.4 MG CAP PO ONE (05:15)
[2018-09-08] MEDS ORDERED: diphenhydrAMINE INJ 50MG/ML VIAL (J1200) IV STA (05:34)
[2018-09-08] MEDS ORDERED: HALOPERIDOL 5 MG/ML VIAL (J1630) IV STA (05:34)
[2018-09-08] MEDS ORDERED: CIPR-249 PO (06:18)
[2018-09-08 06:24] VITALS: BP 115/58
--- NOTE | 2018-09-08 12:07 | REP ---
CHEST, TWO VIEWS: Two views of the chest are performed. Comparison made with prior study of 03/30/2014. Study is limited due to patient body habitus. There is no definite acute infiltrate. Heart is not enlarged. Mediastinal silhouette is unremarkable and unchanged. There are mild degenerative changes of the spine. SALES AND MARKETING ASSOCIATE shut is seen over the right hemithorax. IMPRESSION: No definite acute infiltrate. Electronically Signed by Brayden Esteban MD 09/08/2018 12:30 P
== END 2018-09-08 06:33 | disposition home or self-care (01) ==
LOC: M ED 01:27 → EDBD 01:27 → M ED 06:33
DX: N20.1 Calculus of ureter (principal); E11.9 Type 2 diabetes mellitus without complications; I10 Essential (primary) hypertension; M79.7 Fibromyalgia; Z79.899 Other long term (current) drug therapy; Z88.0 Allergy status to penicillin; Z88.8 Allergy status to other drugs, medicaments and biological substances; Z91.040 Latex allergy status; Z91.048 Other nonmedicinal substance allergy status
CPT/HCPCS: 71046; 74176; 80048; 80076; 81001; 83605; 85025; 87040; 87086; 87502; 96374; 96375; 99284; J1200; J1885; J2270; J2405; J2765

== ENCOUNTER 2018-09-15 23:11 | Emergency (ER) | payer MEDICARE, OTHER ==
[~2018-09-15] VITALS: Ht 170.2 cm; Wt 147.3 kg
[~2018-09-15 23:11] MED LIST changes: +CIPR-249 PO
[2018-09-15] MEDS ORDERED: TRUL10IN (23:22)
[2018-09-16] MEDS ORDERED: NS 1,000 ML IV ONE
[2018-09-16] MEDS ORDERED: diphenhydrAMINE INJ 50MG/ML VIAL (J1200) IV ONE
[2018-09-16] MEDS ORDERED: METOCLOPRAMIDE INJ 10MG/2ML VIAL (J2765) IV ONE
[2018-09-16] MEDS ORDERED: ACETAMINOPHEN 500 MG TAB PO ONE
[2018-09-16 00:28] LABS: HEMATOCRIT 43.4 % (36.0-47.0); HEMOGLOBIN 13.6 g/dl (12.0-15.5); MEAN CORPUSCULAR HEMOGLOBIN 28.2 pg (27.0-33.0); MEAN CORPUSCULAR HGB CONC 31.3 g/dl (32.0-36.5); MEAN CORPUSCULAR VOLUME 89.9 fl (80.0-96.0); PLATELET COUNT, AUTOMATED 299 10^3/uL (150-450); RED BLOOD COUNT 4.83 10^6/uL (4.00-5.40); WHITE BLOOD COUNT 13.1 10^3/uL (4.0-10.0)
--- NOTE | 2018-09-16 00:29 | REPVR ---
EXAM: CT Head Without Contrast EXAM DATE/TIME: 09/15/2018 11:57 PM CLINICAL HISTORY: 37 years old, female; Pain; Headache not specified; Prior surgery; Surgery date: 6+ months; Additional info: Severe headache, evp general counsel shunt TECHNIQUE: Imaging protocol: Axial computed tomography images of the head/brain without contrast. Radiation optimization: All CT scans at this facility use at least one of these dose optimization techniques: automated exposure control; mA and/or kV adjustment per patient size (includes targeted exams where dose is matched to clinical indication); or iterative reconstruction. COMPARISON: CT Head without contrast 05/19/2018 12:42 PM FINDINGS: Brain: Right frontal approach ventriculostomy catheter with tip terminating in the foramen of Monro, stable. Ventricles are decompressed, stable. No evidence of acute infarct, mass, midline shift or mass effect. No evidence of hemorrhage. Fullness in the foramen of magnum may represent cerebellar tonsillar ectopia. Bones/joints: Unremarkable. No acute fracture. Sinuses: Visualized sinuses are unremarkable. No acute sinusitis. Mastoid air cells: Visualized mastoid air cells are unremarkable. No mastoid effusion. Soft tissues: Unremarkable. Nasopharynx: Minimal mucosal thickening of ethmoidal cells. IMPRESSION: Right frontal approach ventriculostomy catheter with tip terminating in the foramen of Monro, stable. Ventricles are decompressed, stable. No evidence of acute infarct, mass, midline shift or mass effect. No evidence of hemorrhage. Fullness in the foramen of magnum may represent cerebellar tonsillar ectopia. Electronically signed by: Shayla Burkett On 09/16/2018 00:28:14 AM
[2018-09-16] MEDS ORDERED: MORPHINE 4 MG/ML 1ML VIAL/SYRINGE (J2270) IV ONE (00:45)
--- NOTE | 2018-09-16 00:48 | REPVR ---
EXAM: XR Skull, Less Than 4 Views EXAM DATE/TIME: 09/16/2018 12:18 AM CLINICAL HISTORY: 37 years old, female; Pain; Other: Shunt series; Headache not specified; Additional info: Headache, vp of product shunt---please send for read TECHNIQUE: Imaging protocol: XR of the skull, less than 4 views. COMPARISON: CT Head without contrast 09/15/2018 11:50 PM FINDINGS: Tubes, catheters and devices: Right frontal approach ventriculostomy catheter is seen in the right neck, chest, abdomen, and terminating in the right lower quadrant. Multiple loops are seen in the right lower quadrant without any discontinuity in the catheter. Sinuses: Well aerated. No opacification. Bones/joints: No fracture. Soft tissues: Unremarkable. Other findings: Limited lateral views. IMPRESSION: Limited lateral views. Right frontal approach ventriculostomy catheter is seen in the right neck, chest, abdomen, and terminating in the right lower quadrant. Multiple loops are seen in the right lower quadrant without any discontinuity in the catheter. EXAM: XR Soft Tissue Neck EXAM DATE/TIME: 09/16/2018 12:18 AM CLINICAL HISTORY: 37 years old, female; Pain; Other: Shunt series; Headache not specified; Additional info: Headache, vp of product shunt---please send for read TECHNIQUE: Imaging protocol: XR of the soft tissues of the neck. COMPARISON: CT Head without contrast 09/15/2018 11:50 PM FINDINGS: Tubes, catheters and devices: Right frontal approach ventriculostomy catheter is seen in the right neck, chest, abdomen, and terminating in the right lower quadrant. Multiple loops are seen in the right lower quadrant without any discontinuity in the catheter. Airway: Normal. No abnormal narrowing. Soft tissues: Normal. Normal epiglottis. Bones/joints: Normal for age. Other findings: Limited lateral views. IMPRESSION: Limited lateral views. Right frontal approach ventriculostomy catheter is seen in the right neck, chest, abdomen, and terminating in the right lower quadrant. Multiple loops are seen in the right lower quadrant without any discontinuity in the catheter. EXAM: XR Chest, 1 View EXAM DATE/TIME: 09/16/2018 12:18 AM CLINICAL HISTORY: 37 years old, female; Pain; Other: Shunt series; Headache not specified; Additional info: Headache, vp of product shunt---please send for read TECHNIQUE: Imaging protocol: XR of the chest, 1 view. COMPARISON: CT Head without contrast 09/15/2018 11:50 PM FINDINGS: Tubes, catheters and devices: Right frontal approach ventriculostomy catheter is seen in the right neck, chest, abdomen, and terminating in the right lower quadrant. Multiple loops are seen in the right lower quadrant without any discontinuity in the catheter. Lungs: Lungs are difficult to evaluate secondary to lateral view. Bones/joints: Unremarkable. Other findings: Limited lateral views. IMPRESSION: Limited lateral views. Right frontal approach ventriculostomy catheter is seen in the right neck, chest, abdomen, and terminating in the right lower quadrant. Multiple loops are seen in the right lower quadrant without any discontinuity in the catheter. EXAM: XR Abdomen, 1 View EXAM DATE/TIME: 09/16/2018 12:18 AM CLINICAL HISTORY: 37 years old, female; Pain; Other: Shunt series; Headache not specified; Additional info: Headache, vp of product shunt---please send for read TECHNIQUE: Imaging protocol: Frontal supine view of the abdomen/pelvis. COMPARISON: CT Head without contrast 09/15/2018 11:50 PM FINDINGS: Tubes, catheters and devices: Right frontal approach ventriculostomy catheter is seen in the right neck, chest, abdomen, and terminating in the right lower quadrant. Multiple loops are seen in the right lower quadrant without any discontinuity in the catheter. Gastrointestinal tract: Bowel gas pattern is significantly limited secondary to lateral view. No obvious obstruction is seen. Bones/joints: Unremarkable for age. Other findings: Limited lateral views. IMPRESSION: Limited lateral views. Right frontal approach ventriculostomy catheter is seen in the right neck, chest, abdomen, and terminating in the right lower quadrant. Multiple loops are seen in the right lower quadrant without any discontinuity in the catheter. Electronically signed by: Shayla Burkett On 09/16/2018 00:48:17 AM
[2018-09-16 00:53] LABS: BLOOD UREA NITROGEN 8 MG/DL (7-18); CALCIUM LEVEL 8.5 MG/DL (8.5-10.1); CARBON DIOXIDE LEVEL 27 MEQ/L (21-32); CHLORIDE LEVEL 104 MEQ/L (98-107); CREATININE FOR GFR 0.94 MG/DL (0.55-1.30); GLOMERULAR FILTRATION RATE > 60.0 (>60); GLUCOSE, FASTING 257 MG/DL (70-100); POTASSIUM SERUM 3.8 MEQ/L (3.5-5.1); SODIUM LEVEL 138 MEQ/L (136-145)
[2018-09-16 01:03] LABS: ATYPICAL LYMPH 2 % (0-5); EOSINOPHILS 10 % (0-5); LYMPHOCYTES 19 % (16-52); METAMYELOCYTES 2 % (0-0); MYELOCYTES 1 % (0-0); NEUTROPHILS 64 % (35-75)
[2018-09-16 01:04] LABS: HYPOCHROMASIA 1+; PLATELET ESTIMATE NORMAL (NORMAL); TOXIC VACUOLATION 1+
[2018-09-16 01:06] VITALS: BP 144/75
[2018-09-17] MEDS ORDERED: D200CAP3 PO (04:38)
[2018-09-17] MEDS ORDERED: ONDA8TAB7 PO (04:38)
[2018-09-17] MEDS ORDERED: medical marijuana PO (04:39)
== END 2018-09-16 01:13 | disposition home or self-care (01) ==
LOC: M ED 23:11
DX: R51 Headache (principal); M79.7 Fibromyalgia; D72.829 Elevated white blood cell count, unspecified; Z86.011 Personal history of benign neoplasm of the brain; J45.909 Unspecified asthma, uncomplicated; E11.9 Type 2 diabetes mellitus without complications; E03.9 Hypothyroidism, unspecified; M51.9 Unspecified thoracic, thoracolumbar and lumbosacral intervertebral disc disorder; D75.9 Disease of blood and blood-forming organs, unspecified; N94.9 Unspecified condition associated with female genital organs and menstrual cycle; F42.9 Obsessive-compulsive disorder, unspecified; F41.9 Anxiety disorder, unspecified; F32.9 Major depressive disorder, single episode, unspecified; F31.9 Bipolar disorder, unspecified; F90.9 Attention-deficit hyperactivity disorder, unspecified type; F43.10 Post-traumatic stress disorder, unspecified; F60.3 Borderline personality disorder; Z72.0 Tobacco use; Z79.84 Long term (current) use of oral hypoglycemic drugs; Z79.899 Other long term (current) drug therapy; Z88.0 Allergy status to penicillin; Z88.6 Allergy status to analgesic agent; Z88.8 Allergy status to other drugs, medicaments and biological substances; Z91.040 Latex allergy status
CPT/HCPCS: 36415; 70450; 75809; 80048; 85025; 96374; 96375; 99284; J1200; J2270; J2765

== ENCOUNTER 2018-09-17 04:25 | Emergency (ER) | payer MEDICARE, OTHER ==
[~2018-09-17] VITALS: Ht 170.2 cm; Wt 147.3 kg
[~2018-09-17 04:25] MED LIST changes: +TRUL10IN
[2018-09-17] MEDS ORDERED: D200CAP3 PO (04:38)
[2018-09-17] MEDS ORDERED: ONDA8TAB7 PO (04:38)
[2018-09-17] MEDS ORDERED: medical marijuana PO (04:39)
[2018-09-17] MEDS ORDERED: KETOROLAC 60 MG/2 ML VIAL (J1885) IM ONE (06:00)
[2018-09-17] MEDS ORDERED: ONDANSETRON 4 MG ORAL DISINTEGRATING TAB (Q0162 PER 1MG) PO ONE (06:00)
[2018-09-17 06:30] VITALS: BP 138/69
[2018-09-17] MEDS ORDERED: ACETAMINOPHEN 500 MG TAB PO ONE (06:45)
--- NOTE | 2018-09-17 07:26 | ECGEPIP ---
Stationary ECG Study 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
--- NOTE | 2018-09-17 08:03 | REP ---
Right ribs four views: There is no rib fracture or other rib abnormality. PA chest: Comparison is 09/08/2018. There is no pneumothorax or hemothorax. There is increased density inferiorly in the right lung as an interval change, nonspecific, pulmonary contusion versus infiltrate versus atelectasis. MATERIAL YARD CLERK shunt catheter superimposed over the right hemithorax, unchanged. Cardiac size is normal. The rony, mediastinum, skeletal structures are otherwise unremarkable. Impression: Increased density inferiorly in the right lung, nonspecific, as described. Electronically Signed by Brayden Fu MD 09/17/2018 07:54 A
--- NOTE | 2018-09-17 20:57 | ED PDOC ---
Post-Departure Follow-Up dr owen faxed formlal report of rib film for fu Marlene Iyer MD September 17, 2018 20:57
== END 2018-09-17 06:49 | disposition home or self-care (01) ==
LOC: M ED 04:25
DX: R07.89 Other chest pain (principal); E11.9 Type 2 diabetes mellitus without complications; G89.29 Other chronic pain; G93.2 Benign intracranial hypertension; Z98.2 Presence of cerebrospinal fluid drainage device; Z88.0 Allergy status to penicillin; Z88.1 Allergy status to other antibiotic agents; Z88.8 Allergy status to other drugs, medicaments and biological substances; Z91.040 Latex allergy status; Z91.048 Other nonmedicinal substance allergy status; F17.210 Nicotine dependence, cigarettes, uncomplicated
CPT/HCPCS: 71101; 93005; 96372; 99284; J1885; Q0162

== ENCOUNTER 2018-11-11 19:20 | Emergency (ER) | payer MEDICARE, OTHER ==
[~2018-11-11] VITALS: Ht 170.2 cm; Wt 145.0 kg
[2018-11-11 19:20] VITALS: BP 132/78
[~2018-11-11 19:20] MED LIST changes: +D200CAP3 PO; +ONDA8TAB7 PO; +medical marijuana PO
[2018-11-11 21:02] LABS: BASO # 0.1 10^3/uL (0.0-0.2); BASO % 0.7 % (0.0-1.0); EOS # 0.6 10^3/uL (0.0-0.50); EOS % 3.9 % (0.0-3.0); HEMATOCRIT 46.1 % (36.0-47.0); HEMOGLOBIN 14.4 g/dl (12.0-15.5); LYMPH # 3.2 10^3/uL (1.5-4.5); LYMPH % 19.8 % (24.0-44.0); MEAN CORPUSCULAR HEMOGLOBIN 27.1 pg (27.0-33.0); MEAN CORPUSCULAR HGB CONC 31.2 g/dl (32.0-36.5); MEAN CORPUSCULAR VOLUME 86.8 fl (80.0-96.0); MONO # 0.5 10^3/uL (0.0-0.8); MONO % 2.9 % (0.0-5.0); NEUTROPHILS # 11.4 10^3/uL (1.8-7.7); NEUTROPHILS % 71.4 % (36.0-66.0); PLATELET COUNT, AUTOMATED 299 10^3/uL (150-450); RED BLOOD COUNT 5.31 10^6/uL (4.00-5.40)
[2018-11-11 21:20] LABS: ALBUMIN 3.9 GM/DL (3.2-5.2); ALT/SGPT 31 U/L (12-78); BILIRUBIN,DIRECT < 0.1 MG/DL (0.0-0.2); BILIRUBIN,TOTAL 0.2 MG/DL (0.2-1.0); BLOOD UREA NITROGEN 9 MG/DL (7-18); CALCIUM LEVEL 8.7 MG/DL (8.5-10.1); CARBON DIOXIDE LEVEL 29 MEQ/L (21-32); CHLORIDE LEVEL 103 MEQ/L (98-107); CREATININE FOR GFR 1.05 MG/DL (0.55-1.30); GLOMERULAR FILTRATION RATE > 60.0 (>60); GLUCOSE, FASTING 160 MG/DL (70-100); LIPASE 226 U/L (73-393); POTASSIUM SERUM 4.7 MEQ/L (3.5-5.1); SODIUM LEVEL 139 MEQ/L (136-145); TOTAL PROTEIN 7.9 GM/DL (6.4-8.2)
[2018-11-11] MEDS ORDERED: METF10004 PO (21:26)
[2018-11-11] MEDS ORDERED: LAMO200T2 PO (21:26)
== END 2018-11-11 22:45 | disposition left against medical advice (07) ==
LOC: M ED 19:20
DX: R10.9 Unspecified abdominal pain (principal); Z53.21 Procedure and treatment not carried out due to patient leaving prior to being seen by health care provider

== ENCOUNTER 2018-12-09 10:26 | Emergency (ER) | payer MEDICARE, OTHER ==
[~2018-12-09] VITALS: Ht 170.2 cm; Wt 139.6 kg
[~2018-12-09 10:26] MED LIST changes: +LAMO200T2 PO; +METF10004 PO
[2018-12-09 11:12] LABS: BASO # 0.1 10^3/uL (0.0-0.2); BASO % 0.8 % (0.0-1.0); EOS # 0.6 10^3/uL (0.0-0.50); EOS % 4.6 % (0.0-3.0); HEMATOCRIT 47.4 % (36.0-47.0); HEMOGLOBIN 14.8 g/dl (12.0-15.5); LYMPH % 16.1 % (24.0-44.0); MEAN CORPUSCULAR HGB CONC 31.2 g/dl (32.0-36.5); MEAN CORPUSCULAR VOLUME 86.5 fl (80.0-96.0); MONO # 0.5 10^3/uL (0.0-0.8); MONO % 3.7 % (0.0-5.0); NEUTROPHILS % 73.5 % (36.0-66.0); PLATELET COUNT, AUTOMATED 272 10^3/uL (150-450); RED BLOOD COUNT 5.48 10^6/uL (4.00-5.40); WHITE BLOOD COUNT 12.3 10^3/uL (4.0-10.0)
[2018-12-09 11:28] LABS: INR 1.03; PROTHROMBIN TIME 13.2 SECONDS (11.8-14.0)
[2018-12-09 11:29] LABS: PARTIAL THROMBOPLASTIN TIME 29.7 SECONDS (25.0-38.4)
[2018-12-09 11:42] LABS: ALBUMIN 3.7 GM/DL (3.2-5.2); BILIRUBIN,DIRECT 0.1 MG/DL (0.0-0.2); BILIRUBIN,TOTAL 0.3 MG/DL (0.2-1.0); TOTAL PROTEIN 7.9 GM/DL (6.4-8.2)
--- NOTE | 2018-12-09 11:42 | REP ---
CT HEAD WITHOUT CONTRAST: HISTORY: Trauma. COMPARISON: 09/15/2018. There is no intraparenchymal hemorrhage, mass or midline shift. A shunt is present in the anterior horn of the right lateral ventricle. There is no hydrocephalus. There is no extracerebral collection. There is no fracture. The visualized sinuses are clear. IMPRESSION: There is no intracranial lesion. Electronically Signed by Eric Clement MD 12/09/2018 11:46 A
[2018-12-09 11:47] LABS: BLOOD UREA NITROGEN 7 MG/DL (7-18); CALCIUM LEVEL 9.4 MG/DL (8.5-10.1); CARBON DIOXIDE LEVEL 28 MEQ/L (21-32); CHLORIDE LEVEL 105 MEQ/L (98-107); CREATININE FOR GFR 1.04 MG/DL (0.55-1.30); GLOMERULAR FILTRATION RATE > 60.0 (>60); GLUCOSE, FASTING 123 MG/DL (70-100); POTASSIUM SERUM 3.9 MEQ/L (3.5-5.1); SODIUM LEVEL 141 MEQ/L (136-145)
[2018-12-09] MEDS ORDERED: MORPHINE 4 MG/ML 1ML VIAL/SYRINGE (J2270) IV ONE (12:00)
--- NOTE | 2018-12-09 12:39 | REP ---
CT ABDOMEN AND PELVIS WITHOUT CONTRAST: CT abdomen and pelvis performed without oral or IV contrast. Sagittal and coronal reconstruction images are performed. Visualized lung bases are clear. The liver demonstrates enlargement with a length of approximately 19.6 cm with diffuse fatty infiltration. Spleen is mildly enlarged with a length of 15.5 cm. Adrenals, pancreas, and kidneys are grossly unremarkable. There is no abdominal aortic aneurysm. There is no free air or free fluid. There is no bowel wall thickening. There is an umbilical hernia containing fat. No pelvic mass is seen. Urinary bladder is not distended and not evaluated. Visualized osseous structures are intact with no compression deformity seen of the lumbar vertebral bodies. Incidental note is made of a ventriculoperitoneal shunt with the distal tip in the right upper quadrant along the lateral aspect of the right lobe of the liver. IMPRESSION: No acute abnormality is detected. There is mild hepatosplenomegaly with diffuse fatty infiltration of the liver. No free air or free fluid. Umbilical hernia containing fat. Electronically Signed by Brayden Esteban MD 12/11/2018 07:45 A
--- NOTE | 2018-12-09 12:44 | REP ---
SHUNT SERIES: AP views of the skull, chest, and abdomen and lateral view of the skull performed and compared to prior shunt series 09/16/2018. The ventriculoperitoneal shunt is unchanged in position and appearance with no new discontinuity. Distal tip of the ventriculoperitoneal shunt is made in the right upper quadrant. Bones and soft tissues of the skull region are unremarkable. Chest demonstrates clear lungs with normal heart and mediastinum. Bowel gas pattern is normal. There are metallic clips in the left pelvis. IMPRESSION: Stable shunt series with no new discontinuity or kinking of the shunt. Electronically Signed by Brayden Esteban MD 12/11/2018 07:45 A
[2018-12-09] MEDS ORDERED: ONDANSETRON 4MG/2ML VIAL (J2405) IV ONE (13:00)
[2018-12-09 14:01] VITALS: BP 121/70
[2018-12-09] MEDS ORDERED: ONDA4TAB6 PO (14:02)
--- NOTE | 2018-12-09 19:59 | ECGEPIP ---
[facility] - ED Test Date: 2018-12-09 Pat Name: JASVIR PADILLA Department: Room: - Gender: Female Informix Developer: loreta : 1980 Requested By: Marlene Jose Order Number: [id number] Reading MD: Marlene Jose Measurements Intervals [place] Rate: 103 P: 61 CT: 132 QRS: 93 QRSD: 100 T: 47 QT: 358 QTc: 471 Interpretive Statements SINUS TACHYCARDIA WITH SHORT CT INTERVAL BORDERLINE RIGHT AXIS DEVIATION POSSIBEL LAE IVCD NONSPECIFIC ST T WAVE CHANGES POOR R WAVE PROGRESSION ABNORMAL RHYTHM ECG CW 09/17/[address] T WAVE CHANGES Electronically Signed on 12-09-2018 19:58:52 EDT by Marlene Jose
== END 2018-12-09 14:24 | disposition home or self-care (01) ==
LOC: M ED 10:26 → EDBD 10:26 → M ED 14:24
DX: R55 Syncope and collapse (principal); E86.0 Dehydration; R11.2 Nausea with vomiting, unspecified; R19.7 Diarrhea, unspecified; R00.0 Tachycardia, unspecified; I45.4 Nonspecific intraventricular block; R94.31 Abnormal electrocardiogram [ECG] [EKG]; R16.2 Hepatomegaly with splenomegaly, not elsewhere classified; K76.0 Fatty (change of) liver, not elsewhere classified; K42.9 Umbilical hernia without obstruction or gangrene; Z79.899 Other long term (current) drug therapy; Z88.0 Allergy status to penicillin; Z88.6 Allergy status to analgesic agent; Z88.8 Allergy status to other drugs, medicaments and biological substances; Z91.89 Other specified personal risk factors, not elsewhere classified; Z91.040 Latex allergy status
CPT/HCPCS: 70450; 74176; 75809; 80048; 80076; 84443; 85025; 85610; 85730; 86850; 86900; 86901; 93005; 93041; 94760; 96374; 96375; 99285; J2270; J2405

== ENCOUNTER → 2018-12-12 | Outpatient (REF) | payer MEDICARE, OTHER | LOC: M LAB REF 11:17 | PROVIDERS: ATTEND Physician Assistant Medical | DX: R19.7 Diarrhea, unspecified (principal) ==

== ENCOUNTER → 2019-02-17 | Outpatient (CLI) | payer MEDICARE, MEDICAID ==
--- NOTE | 2019-03-06 02:48 | ECWPNPC ---
PATIENT NAME: JASVIR PADILLA : 1980 GENDER: FEMALE VISIT DATE: 02/17/2019 DISCHARGE DATE: 02/17/19 1506 VISIT LOCKED DATE TIME: PHYSICIAN: LILIA WOOTEN RESOURCE: LILIA WOOTEN REASON FOR APPOINTMENT 1. 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 PAIN THE PATIENT DESCRIBES THE PAIN... FALL RISK SCREENING: SCREENING :NO FALLS REPORTED IN THE LAST YEAR CURRENT MEDICATIONS TAKING LAMICTAL 200 MG TABLET 1 TABLET ORALLY DAILY TAKING EFFEXOR XR 150 MG CAPSULE EXTENDED RELEASE 24 HOUR 1 CAPSULE WITH FOOD ORALLY BID TAKING LEVOTHYROXINE SODIUM 200 MCG TABLET 1 TABLET ORALLY ONCE A DAY TAKING FERROUS SULFATE 325 MG CAPSULE 1 TABLET ORALLY TAKING PERCOCET 10-325 MG TABLET 2 TABLET NEEDED ORALLY TID TAKING EFFEXOR XR 37.5 MG CAPSULE EXTENDED RELEASE 24 HOUR 2 CAPSULE WITH FOOD ORALLY ONCE A DAY TAKING ZOFRAN 4 MG TABLET 2 TABLETS ORALLY Q 6 PRN TAKING LYRICA 200 MG CAPSULE 1 CAPSULE ORALLY THREE TIMES A DAY MDD3 TAKING CYCLOBENZAPRINE HCL 10 MG TABLET 1 TABLET ORALLY QID TAKING METFORMIN HCL 500 MG TABLET 2 TABLET WITH A MEAL ORALLY BID TAKING OPTIFOAM 4 PAD DIRECTED TOPICALLY DAILY NOT-TAKING FLUOCINONIDE 0.1 % CREAM DIRECTED EXTERNALLY ARMS AND LEGS BID DISCONTINUED VITAMIN D-3 2000 CAPSULE 1 CAPSULE ORALLY BID DISCONTINUED LIPITOR 20 MG TABLET 1 TABLET ORALLY ONCE A DAY DISCONTINUED PROBIOTIC - CAPSULE DIRECTED ORALLY TWICE A DAY MEDICATION LIST REVIEWED AND RECONCILED WITH THE PATIENT PAST MEDICAL HISTORY PSEUDO TUMOR CEREBRI LASTEX THREAD WINDER SHUNT 2015 LEFT EYE 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 PRATT AGE 24 ALLERGIES BETADINE: HIVES IODINE: HIVES - ALLERGY LATEX (FOR ALLERGY USE ONLY): HIVES PENICILLIN (FOR ALLERGIES USE ONLY): HIVES CEFTIN: THROAT SWELLING SULFA (FOR ALLERGY USE ONLY): HIVES ERYTHROMYCIN: NAUSEA/VOMITING - SIDE EFFECTS MORPHINE SULFATE: HIVES - ALLERGY SURGICAL HISTORY TOTAL HYSTERECTOMY 2016 SHUNT PLACED 2016 CARPEL TUNNEL BILATERAL 2013 TUMOR REMOVAL LEFT LATERAL BACK 2002 FAMILY HISTORY FATHER: 30 YRS MOTHER: ALIVE, DIAGNOSED WITH DIABETES SIBLINGS: ALIVE 2 BROTHER(S) . 1DAUGHTER(S) . DTR NON BIOLOGICAL. SOCIAL HISTORY GENERAL: TOBACCO USE ARE YOU A:CURRENT SMOKER ARE YOU INTERESTED IN QUITTING?NOT READY TO QUIT COUNSELED THE PATIENT ON SMOKING EFFECTS, EDUCATION NUTSYMFS48/14/2019 HOW MANY CIGARETTES A DAY DO YOU SMOKE?21-30 HOW SOON AFTER YOU WAKE UP DO YOU SMOKE YOUR FIRST CIGARETTE?WITHIN 5 MIN HOW OFTEN DO YOU SMOKE CIGARETTES?EVERY DAY PATIENT COUNSELED ON THE DANGERS OF TOBACCO USE AND URGED TO QUIT:08/16/2017 IMMUNIZATION PROGRAM MOTHER, OTHER NON-RELATIVE. OTHERS AT HOME: MOTHER, OTHER NON-RELATIVE. 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 EDUCATION LEVEL OF EDUCATION:NOT FINISHED COLLEGE DIET: REGULAR. LANGUAGE LANGUAGES SPOKEN:IRISH DOMESTIC VIOLENCE DO YOU FEEL SAFE IN YOUR ENVIRONMENT?YES RECREATIONAL DRUG USE DRUG USE?YES MEDICAL MARIJUANA HOW OFTEN AND HOW MUCH? TID EXERCISE: NO REGULAR EXERCISE. LEARNING BARRIERS / SPECIAL NEEDS BARRIERS TO LEARNING?NO HEARING IMPAIRED?NO VISION IMPAIRED?YES :CORRECTIVE LENSES COGNITIVELY IMPAIRED?NO LEARNING PREFERENCES?NO LEARNING CAPABILITIES PRESENT?YES SPECIAL DEVICES?YES :WHEELCHAIR AMMUNITION SPECIALIST NEEDED?NO PAIN CLINIC PFS, CLERGY, PUBLIC HEALTH REFERRALS HAS THE PATIENT BEEN EDUCATED REGARDING HIS/HER PLAN OF CARE?YES HAS THE PATIENT BEEN EDUCATED REGARDING PAIN, THE RISK FOR PAIN, THE IMPORTANCE OF EFFECTIVE PAIN MANAGEMENT, AND THE PAIN ASSESSMENT PROCESS?YES CAFFEINE CAFFEINE USE?YES HOW OFTEN AND HOW MUCH? 1-2 20 OZ PEPSI/DAY ADVANCE DIRECTIVE ADVANCE DIRECTIVE DISCUSSED WITH PATIENT:YES DECLINED WORSHIP WORSHIP NO MUSLIM BELIEFS THAT WOULD IMPACT HEALTH CARE. MARITAL STATUS: SINGLE. ALCOHOL SCREENING DID YOU HAVE A DRINK CONTAINING ALCOHOL IN THE PAST YEAR?NO POINTS0 INTERPRETATIONNEGATIVE OCCUPATION: DISABLED. HOSPITALIZATION/MAJOR DIAGNOSTIC PROCEDURE SURGERY RELATED REVIEW OF SYSTEMS REVIEWED BY: PROVIDER: LILIA GEORGES . CONSTITUTIONAL: ANY CHANGE IN YOUR MEDICAL CONDITION? NO . CHILLS NO . FEVER NO . INFECTION: DO YOU HAVE NEW INFECTIONS? NO . DO YOU HAVE HISTORY OF MRSA? NO . MUSCULOSKELETAL: ANY NEW PATTERNS OF PAIN OR NUMBNESS? YES, LEGS MORE PAINFUL AND HEADACHES, BILAT ARM PAIN . GASTROENTEROLOGY: ANY NEW CHANGE IN BOWEL CONTROL? NO . GENITOURINARY: ANY NEW CHANGE IN BLADDER CONTROL? NO . IS THERE A CHANCE YOU COULD BE ? NO . HEMATOLOGY/LYMPH: DO YOU TAKE ANY BLOOD THINNERS? (FOR EXAMPLE- COUMADIN, PLAVIX, AGGRENOX, PLATEL, PRADAXA, OR XARELTO) NO . WHEN WAS YOUR LAST DOSE? DATE: TIME: . NEUROLOGY: HAVE YOU FALLEN IN THE PAST 12 MONTHS? YES, FELL LAST MONTH FROM PAIN AND WEAKNESS, PT DENIES INJURIES . ANY NEW EXTREMITY NUMBNESS OR WEAKNESS? NO . CARDIOLOGY: DO YOU HAVE A PACEMAKER OR DEFIBRILLATOR? NO . RESPIRATORY: HAVE YOU BEEN SICK IN THE PAST WEEK? NO . FEVER NO . FLU LIKE SYMPTOMS? NO . COUGH NO . INTEGUMENTARY: DO YOU HAVE ANY RASHES OR OPEN SORES? YES, POPPED BLISTERS TO ABD AND LEFT LEG . ALLERGIC/IMMUNO: ARE YOU ALLERGIC TO IV DYE? NO . ANY NEW ALLERGIES? NO . PSYCHIATRIC: DO YOU HAVE THOUGHTS OF HURTING YOURSELF OR SOMEONE ELSE? NO . ARE YOU ABUSED, NEGLECTED, OR IN AN UNSAFE ENVIRONMENT? NO . ENDOCRINOLOGY: ARE YOU DIABETIC? YES . OTHER: DO YOU NEED ANY PRESCRIPTIONS? YES, LYRICA . IF YES, PLEASE LIST: ____ . ANY NEW PROBLEMS WITH YOUR MEDICATIONS? NO . WHEN DID YOU LAST EAT? ____ . WHEN DID YOU LAST DRINK? ____ . WHAT DID YOU LAST DRINK? ____ . NAME OF PERSON DRIVING YOU HOME? ____ . DO YOU HAVE ANY OTHER QUESTIONS OR CONCERNS NO . VITAL SIGNS WT 312 LBS, HT 67", BMI 48.86 INDEX, BP 118/93 MM HG, HR 90 /MIN, RR 18 /MIN, TEMP 97.3 F, OXYGEN SAT % 91%, NA INITIALS SC 13:52, REVIEWED BY: EM. EXAMINATION GENERAL EXAMINATION: GENERAL AWAKE,ALERT ,PLEASANT . PSYCH AFFECT NORMAL . LUNGS: LUNG QUESADA ARE CLEAR TO AUSCULTATION BILATERALLY. GOOD MOVEMENT OF AIR . HEART: S1, S2 IN A REGULAR RATE AND RHYTHM. NO SIGNIFICANT MURMURS, RUBS OR GALLOPS NOTED . CERVICAL TRIGGER POINTS: CERVICAL AND TRAPEZIUS BILAT..PAIN IS AGGREVATED WITH ROJM NECK. ASSESSMENTS MYALGIA OF MUSCLE OF NECK - M79.18 (PRIMARY) TREATMENT MYALGIA OF MUSCLE OF NECK DECREASE PERCOCET TABLET, 10-325 MG, 1 TO 2 TAB DIRECTED, ORALLY, 2 TAB IN AM,2 TAB MIDDAY ,1 1/2 TAB AT HS X10 DAYS THEN 2 IN AM,2 MIDDAY AND 1 AT HS MDD5, 30 DAYS, 150, REFILLS 0 REFILL LYRICA CAPSULE, 200 MG, 1 CAPSULE, ORALLY, THREE TIMES A DAY MDD3, 30 DAY(S), 90, REFILLS 2 CONTINUE CYCLOBENZAPRINE HCL TABLET, 10 MG, 1 TABLET, ORALLY, QID NOTES: TPI BILAT NECK, ISTOP REGISTRY REVIEWED AND DEMONSTRATES COMPLLIANCE., RISKS OF NARCOTIC/OPIOD MEDICATIONS INCLUDES BUT IS NOT LIMITED TO RISK OF DEPENDANCE/DEVELOPMENT OF ADDICTION, MOOD DISTURBANCE AND DEPRESSION, OSTEOPOROSIS, HORMONAL AND LABIDAL CHANGES, RESPIRATORY DEPRESSION AND . PATIENT IS ADVISED NOT TO DRIVE OR DRINK ALCOHOL WHILE ON THESE MEDICATIONS, [facility] NARCOTIC AGREEMENT WAS REVIEWED AND SIGNED TODAY BY THE PATIENT. SEE ATTACHED DOCUMENT FOR FULL DETAILS; SPECIFIC ISSUES WERE REVIEWED: 1) KEEP PAIN MEDS IN THEIR ORIGINAL BOTTLES AND ANY WEEKLY PLANNERS ARE TO BE BROUGHT TO THE PAIN CENTER AT EVERY VISIT. 2) THE PATIENT IS NOT TO INCREASE DOSING OR TIMING OF THEIR PAIN MEDICATION WITHOUT SPECIFIC DIRECTION OF THEIR PAIN CENTERPROVIDER (NOT ER OR OTHER PROVIDERS). 3) ALL PAIN MEDS ARE TO BE KEPT SECURED, IN A LOCKED BOX. 4) NO PAIN MEDS ARE TO BE SHARED WITH ANY OTHER PERSON FOR ANY REASON. 5) NO PAIN MEDS MAY BE TAKEN FROM ANY FRIENDS OR RELATIVES FOR ANY REASON 6) NO MEDS OR SUBSTANCES WHICH ARE NOT LEGAL ARE TO BE USED- NO MARIJUANA, NO COCAINE, AMPHETAMINES, HEROIN, OR OTHERS ARE EVER TO BE USED. 7)URINE TESTING IS DONE TO ACCOUNT FOR MEDS AND SUBSTANCES BEING TAKEN AND WILL BE DONE RANDOMLY.PATIENT IS AGREEABLE TO REDUCE OPIOD MEDICATIONS AND SEEK ALTERNATIVES TO MEDICATIONS BY MOUTH.SHE IS TOLERANT TO OXYCODONE SHE HAS BEEN ON THIS FOR SEVERAL YEARS.GOAL WILL BE TO STABALIZE MEDICATION,TRY SOME INJECTIONS AND MORE THAN LIKELY REFER TO [facility] ONCE WE HAVE EXHAUSTED TREATMENT OPTIONS.SHE IS IN AGREEMENT TO PLAN. PROCEDURE CODES FA211 ESTABILISHED PATIENT [facility] CHARGE DISPOSITION & COMMUNICATION FOLLOW UP 6WKS (REASON: TPI BILAT NECK) ELECTRONICALLY SIGNED BY JOSÉ MANUEL CARRION ON 03/04/2019 AT 09:06 AM EDT DISCLAIMER : THIS IS A VISIT SUMMARY EXTRACTED FROM THE [employer] CHART. IT IS NOT A COPY OF THE [employer] PROGRESS NOTE. BERTHA
== END ==
LOC: M PAIN 13:30
PROVIDERS: ATTEND Nurse Practitioner Family
DX: M79.18 Myalgia, other site (principal); J45.909 Unspecified asthma, uncomplicated; E11.9 Type 2 diabetes mellitus without complications; D50.9 Iron deficiency anemia, unspecified; G25.81 Restless legs syndrome; Z86.59 Personal history of other mental and behavioral disorders; E03.9 Hypothyroidism, unspecified; F17.210 Nicotine dependence, cigarettes, uncomplicated; Z88.0 Allergy status to penicillin; Z88.1 Allergy status to other antibiotic agents; Z88.2 Allergy status to sulfonamides; Z88.3 Allergy status to other anti-infective agents; Z88.5 Allergy status to narcotic agent; E66.01 Morbid (severe) obesity due to excess calories; Z68.42 Body mass index [BMI] 45.0-49.9, adult; Z79.84 Long term (current) use of oral hypoglycemic drugs; Z79.899 Other long term (current) drug therapy

== ENCOUNTER 2019-03-10 07:26 | Emergency (ER) | payer MEDICARE, MEDICAID ==
[~2019-03-10] VITALS: Ht 170.2 cm; Wt 139.6 kg
[2019-03-10] MEDS ORDERED: KETOROLAC 60 MG/2 ML VIAL (J1885) IM ONE (08:00)
--- NOTE | 2019-03-10 08:35 | REP ---
Right ribs for views: There is no rib fracture or other rib abnormality. PA chest: Comparison is 09/08/2018. There is no pneumothorax, hemothorax or pulmonary contusion. Lung goeva otherwise clear. Cardiac size is normal. The rony, mediastinum, skeletal structures are unremarkable. There is a MEDICAL RECORD CONSULTANT shunt tubing on the right. Impression: Negative PA chest. Electronically Signed by Brayden Fu MD 03/10/2019 08:26 A
[2019-03-10] MEDS ORDERED: LIDO5DIS41 TD (09:11)
[2019-03-10 09:16] VITALS: BP 166/76
== END 2019-03-10 09:25 | disposition home or self-care (01) ==
LOC: M ED 07:26 → EDBD 07:26 → M ED 09:25
DX: R07.81 Pleurodynia (principal); S00.03XA Contusion of scalp, initial encounter; G89.4 Chronic pain syndrome; W01.0XXA Fall on same level from slipping, tripping and stumbling without subsequent striking against object, initial encounter; Y92.018 Other place in single-family (private) house as the place of occurrence of the external cause; G93.2 Benign intracranial hypertension; Z98.2 Presence of cerebrospinal fluid drainage device; M79.7 Fibromyalgia; J45.909 Unspecified asthma, uncomplicated; F31.9 Bipolar disorder, unspecified; F17.210 Nicotine dependence, cigarettes, uncomplicated; Z88.0 Allergy status to penicillin; Z88.1 Allergy status to other antibiotic agents; Z88.2 Allergy status to sulfonamides; Z88.6 Allergy status to analgesic agent; Z91.040 Latex allergy status; Z79.84 Long term (current) use of oral hypoglycemic drugs; Z79.891 Long term (current) use of opiate analgesic; Z79.899 Other long term (current) drug therapy
CPT/HCPCS: 71101; 96372; 99284; J1885

== ENCOUNTER → 2019-06-03 | Outpatient (REF) | payer MEDICARE, MEDICAID ==
[~2019-06-03] MED LIST changes: -LAMO200T2 PO; +LAMO200T3 PO; +LIDO5DIS41 TD; +ONDA8TAB10 PO; -ONDA8TAB7 PO
[2019-06-03 20:38] LABS: ALBUMIN 3.8 GM/DL (3.2-5.2); ALT/SGPT 32 U/L (12-78); BILIRUBIN,TOTAL 0.3 MG/DL (0.2-1.0); BLOOD UREA NITROGEN 10 MG/DL (7-18); CALCIUM LEVEL 8.9 MG/DL (8.5-10.1); CARBON DIOXIDE LEVEL 28 MEQ/L (21-32); CHLORIDE LEVEL 104 MEQ/L (98-107); CREATININE FOR GFR 0.83 MG/DL (0.55-1.30); GLOMERULAR FILTRATION RATE > 60.0 (>60); GLUCOSE, FASTING 101 MG/DL (70-100); POTASSIUM SERUM 4.3 MEQ/L (3.5-5.1); SODIUM LEVEL 139 MEQ/L (136-145); TOTAL PROTEIN 7.8 GM/DL (6.4-8.2)
[2019-06-03 20:50] LABS: BASO # 0.1 10^3/uL (0.0-0.2); BASO % 0.5 % (0.0-1.0); EOS # 0.4 10^3/uL (0.0-0.5); EOS % 3.8 % (0.0-3.0); HEMATOCRIT 48.6 % (36.0-47.0); LYMPH # 1.7 10^3/uL (1.5-5.0); LYMPH % 14.5 % (24.0-44.0); MEAN CORPUSCULAR HEMOGLOBIN 25.6 pg (27.0-33.0); MEAN CORPUSCULAR HGB CONC 30.9 g/dl (32.0-36.5); MEAN CORPUSCULAR VOLUME 82.8 fl (80.0-96.0); MONO # 0.4 10^3/uL (0.0-0.8); MONO % 3.3 % (0.0-5.0); NEUTROPHILS # 8.8 10^3/uL (1.5-8.5); NEUTROPHILS % 76.9 % (36.0-66.0); PLATELET COUNT, AUTOMATED 268 10^3/uL (150-450); RED BLOOD COUNT 5.87 10^6/uL (4.00-5.40); WHITE BLOOD COUNT 11.4 10^3/uL (4.0-10.0)
== END ==
LOC: M LAB REF 15:00
PROVIDERS: ATTEND Nurse Practitioner Family
DX: R06.09 Other forms of dyspnea (principal); R09.81 Nasal congestion

== ENCOUNTER → 2019-06-18 | Outpatient (CLI) | payer MEDICARE, MEDICAID ==
--- NOTE | 2019-07-09 04:19 | ECWPNPC ---
PATIENT NAME: JASVIR PADILLA : 1980 GENDER: FEMALE VISIT DATE: 06/18/2019 DISCHARGE DATE: 06/18/19 1445 VISIT LOCKED DATE TIME: PHYSICIAN: LILIA WOOTEN RESOURCE: LILIA WOOTEN REASON FOR APPOINTMENT 1. 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 PAIN THE PATIENT DESCRIBES THE PAIN... FALL RISK SCREENING: SCREENING :NO FALLS REPORTED IN THE LAST YEAR CURRENT MEDICATIONS TAKING LAMICTAL 200 MG TABLET 1 TABLET ORALLY DAILY TAKING EFFEXOR XR 150 MG CAPSULE EXTENDED RELEASE 24 HOUR 1 CAPSULE WITH FOOD ORALLY BID TAKING LEVOTHYROXINE SODIUM 200 MCG TABLET 1 TABLET ORALLY ONCE A DAY TAKING FERROUS SULFATE 325 MG CAPSULE 1 TABLET ORALLY TAKING EFFEXOR XR 37.5 MG CAPSULE EXTENDED RELEASE 24 HOUR 2 CAPSULE WITH FOOD ORALLY ONCE A DAY TAKING ZOFRAN 4 MG TABLET 2 TABLETS ORALLY Q 6 PRN TAKING METFORMIN HCL 500 MG TABLET 2 TABLET WITH A MEAL ORALLY BID TAKING OPTIFOAM 4 PAD DIRECTED TOPICALLY DAILY TAKING LYRICA 200 MG CAPSULE 1 CAPSULE ORALLY THREE TIMES A DAY MDD3 TAKING CYCLOBENZAPRINE HCL 10 MG TABLET 1 TABLET ORALLY QID TAKING PERCOCET 10-325 MG TABLET 1 TO 2 TAB DIRECTED ORALLY 2 TAB IN AM,2 TAB MIDDAY ,1 1/2 TAB AT HS X10 DAYS THEN 2 IN AM,2 MIDDAY AND 1 AT HS MDD5 NOT-TAKING FLUOCINONIDE 0.1 % CREAM DIRECTED EXTERNALLY ARMS AND LEGS BID MEDICATION LIST REVIEWED AND RECONCILED WITH THE PATIENT PAST MEDICAL HISTORY PSEUDO TUMOR CEREBRI 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 PRATT AGE 24 ADHD LEGALLY BLIND ALLERGIES BETADINE: HIVES IODINE: HIVES - ALLERGY LATEX (FOR ALLERGY USE ONLY): HIVES PENICILLIN (FOR ALLERGIES USE ONLY): HIVES CEFTIN: THROAT SWELLING SULFA (FOR ALLERGY USE ONLY): HIVES ERYTHROMYCIN: NAUSEA/VOMITING - SIDE EFFECTS MORPHINE SULFATE: HIVES - ALLERGY SURGICAL HISTORY TOTAL HYSTERECTOMY 2016 SHUNT PLACED 2016 CARPEL TUNNEL BILATERAL 2013 TUMOR REMOVAL LEFT LATERAL BACK 2002 FAMILY HISTORY FATHER: 30 YRS MOTHER: ALIVE, DIAGNOSED WITH DIABETES SIBLINGS: ALIVE 2 BROTHER(S) . 1DAUGHTER(S) . DTR NON BIOLOGICAL. SOCIAL HISTORY GENERAL: TOBACCO USE ARE YOU A:CURRENT SMOKER ARE YOU INTERESTED IN QUITTING?NOT READY TO QUIT COUNSELED THE PATIENT ON SMOKING EFFECTS, EDUCATION [id number]/12/2020 HOW MANY CIGARETTES A DAY DO YOU SMOKE?21-30 HOW SOON AFTER YOU WAKE UP DO YOU SMOKE YOUR FIRST CIGARETTE?WITHIN 5 MIN HOW OFTEN DO YOU SMOKE CIGARETTES?EVERY DAY PATIENT COUNSELED ON THE DANGERS OF TOBACCO USE AND URGED TO QUIT:08/16/2017 IMMUNIZATION PROGRAM MOTHER, OTHER NON-RELATIVE. OTHERS AT HOME: MOTHER, OTHER NON-RELATIVE. 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 EDUCATION LEVEL OF EDUCATION:NOT FINISHED COLLEGE DIET: REGULAR. LANGUAGE LANGUAGES SPOKEN:IRANIAN DOMESTIC VIOLENCE DO YOU FEEL SAFE IN YOUR ENVIRONMENT?YES RECREATIONAL DRUG USE DRUG USE?YES MEDICAL MARIJUANA HOW OFTEN AND HOW MUCH? TID EXERCISE: NO REGULAR EXERCISE. LEARNING BARRIERS / SPECIAL NEEDS BARRIERS TO LEARNING?NO HEARING IMPAIRED?NO VISION IMPAIRED?YES COGNITIVELY IMPAIRED?NO :CORRECTIVE LENSES LEARNING PREFERENCES?NO LEARNING CAPABILITIES PRESENT?YES SPECIAL DEVICES?YES :WHEELCHAIR TURBINE MEASUREMENTS ENGINEER NEEDED?NO PAIN CLINIC PFS, CLERGY, PUBLIC HEALTH REFERRALS HAS THE PATIENT BEEN EDUCATED REGARDING HIS/HER PLAN OF CARE?YES HAS THE PATIENT BEEN EDUCATED REGARDING PAIN, THE RISK FOR PAIN, THE IMPORTANCE OF EFFECTIVE PAIN MANAGEMENT, AND THE PAIN ASSESSMENT PROCESS?YES LATEX QUESTIONNAIRE LATEX ALLERGY : HAVE YOU EVER DEVELOPED ANY TYPE OF REACTION AFTER HANDLING LATEX PRODUCTS SUCH RUBBER GLOVES, CONDOMS, DIAPHRAGMS, BALLOONS, SOCKS, OR UNDERWEAR?YES LATEX ALLERGY : HAVE YOU EVER DEVELOPED ANY TYPE OF REACTION DURING OR AFTER DENTAL APPOINTMENT, VAGINAL/RECTAL EXAMINATION, SURGICAL PROCEDURE, OR ANY OTHER EXPOSURE?YES DATE ASKED : 05/27/2019 LATEX RISK : HAVE YOU EVER HAD ANY DIFFICULTY BREATHING OR HIVES AFTER EATING OR HANDLING ANY FRUITS, OR VEGETABLES; SUCH KIWI, BANANAS, STONE FRUITS, OR CHESTNUTSYES LATEX RISK : DO YOU HAVE A PREVIOUS PERSONAL HISTORY OF MORE THAN NINE SURGERIES, SPINA BIFIDA, OR REPEATED CATHERIZATIONS? YES LATEX RISK : ARE YOU FREQUENTLY EXPOSED TO LATEX PRODUCTS IN YOUR OCCUPATION?YES CAFFEINE CAFFEINE USE?YES HOW OFTEN AND HOW MUCH? 1-2 20 OZ PEPSI/DAY ADVANCE DIRECTIVE ADVANCE DIRECTIVE DISCUSSED WITH PATIENT:YES DECLINED UATSDIN UATSDIN NO JEHOVAH'S WITNESS BELIEFS THAT WOULD IMPACT HEALTH CARE. MARITAL STATUS: SINGLE. ALCOHOL SCREENING DID YOU HAVE A DRINK CONTAINING ALCOHOL IN THE PAST YEAR?NO POINTS0 INTERPRETATIONNEGATIVE OCCUPATION: DISABLED. HOSPITALIZATION/MAJOR DIAGNOSTIC PROCEDURE SURGERY RELATED REVIEW OF SYSTEMS REVIEWED BY: PROVIDER: LILIA GEORGES . CONSTITUTIONAL: ANY CHANGE IN YOUR MEDICAL CONDITION? NO . CHILLS NO . FEVER NO . INFECTION: DO YOU HAVE NEW INFECTIONS? YES, URI CURRENT, PCP AWARE, TX'D W ABX . DO YOU HAVE HISTORY OF MRSA? NO . MUSCULOSKELETAL: ANY NEW PATTERNS OF PAIN OR NUMBNESS? YES, BILAT THIGH PAIN, BILAT FOOT PAIN W WALKING . GASTROENTEROLOGY: ANY NEW CHANGE IN BOWEL CONTROL? NO . GENITOURINARY: ANY NEW CHANGE IN BLADDER CONTROL? NO . IS THERE A CHANCE YOU COULD BE ? NO . HEMATOLOGY/LYMPH: DO YOU TAKE ANY BLOOD THINNERS? (FOR EXAMPLE- COUMADIN, PLAVIX, AGGRENOX, PLATEL, PRADAXA, OR XARELTO) NO . WHEN WAS YOUR LAST DOSE? DATE: TIME: . NEUROLOGY: HAVE YOU FALLEN IN THE PAST 12 MONTHS? YES, PRIOR TO LAST VISIT . ANY NEW EXTREMITY NUMBNESS OR WEAKNESS? NO . CARDIOLOGY: DO YOU HAVE A PACEMAKER OR DEFIBRILLATOR? NO . RESPIRATORY: HAVE YOU BEEN SICK IN THE PAST WEEK? YES . FEVER YES . FLU LIKE SYMPTOMS? NO . COUGH YES, GREEN SPUTUM . INTEGUMENTARY: DO YOU HAVE ANY RASHES OR OPEN SORES? NO . ALLERGIC/IMMUNO: ARE YOU ALLERGIC TO IV DYE? NO . ANY NEW ALLERGIES? NO . PSYCHIATRIC: DO YOU HAVE THOUGHTS OF HURTING YOURSELF OR SOMEONE ELSE? NO . ARE YOU ABUSED, NEGLECTED, OR IN AN UNSAFE ENVIRONMENT? NO . ENDOCRINOLOGY: ARE YOU DIABETIC? YES . OTHER: DO YOU NEED ANY PRESCRIPTIONS? NO . IF YES, PLEASE LIST: ____ . ANY NEW PROBLEMS WITH YOUR MEDICATIONS? NO . WHEN DID YOU LAST EAT? ____ . WHEN DID YOU LAST DRINK? ____ . WHAT DID YOU LAST DRINK? ____ . NAME OF PERSON DRIVING YOU HOME? ____ . DO YOU HAVE ANY OTHER QUESTIONS OR CONCERNS NO . VITAL SIGNS WT 308 LBS, HT 67", BMI 48.23 INDEX, BP 125/58 MM HG, HR 98 /MIN, RR 19 /MIN, TEMP 98.3 F, OXYGEN SAT % 99%, NA INITIALS MS 1444. EXAMINATION GENERAL EXAMINATION: GENERAL AWAKE,ALERT ,PLEASANT . PSYCH AFFECT NORMAL . LUNGS: LUNG QUESADA ARE CLEAR TO AUSCULTATION BILATERALLY. GOOD MOVEMENT OF AIR . HEART: S1, S2 IN A REGULAR RATE AND RHYTHM. NO SIGNIFICANT MURMURS, RUBS OR GALLOPS NOTED . CERVICAL: TRIGGER POINTS: CERVICAL AND TRAPEZIUS BILAT..PAIN IS AGGREVATED WITH ROJM NECK. ASSESSMENTS MYALGIA OF MUSCLE OF NECK - M79.18 (PRIMARY) CHRONIC PAIN SYNDROME - G89.4 TREATMENT MYALGIA OF MUSCLE OF NECK CONTINUE LYRICA CAPSULE, 200 MG, 1 CAPSULE, ORALLY, THREE TIMES A DAY MDD3 CONTINUE CYCLOBENZAPRINE HCL TABLET, 10 MG, 1 TABLET, ORALLY, QID INCREASE PERCOCET TABLET, 10-325 MG, 1 TO 2 TAB DIRECTED, ORALLY, 1 TAB [id number] PRN MDD5, 30 DAYS, 150, REFILLS 0 NOTES: REPORTING SEVERE INCREASE IN PAIN AND DISABILITY WHEN WE LOWERED HYDROCODONE TO 4 TABLETS PER DAY. SHE IS NOT INTERESTED IN DOING INJECTION THERAPY. DISCUSSED REFERRAL TO PALLIATIVE CARE. PATIENT IS RECEPTIVE. TODAY I HAVE AGREED TO INCREASE HYDROCODONE TO MAX 5 PER DAY. SHE WILL EXPLORE ALTERNATIVES TO MEDICATIONS OR TRIALS OF NEW PAIN MEDICATIONS PER PALLIATIVE CARE'S RECOMMENDATIONS., ISTOP REGISTRY REVIEWED AND DEMONSTRATES COMPLLIANCE. BRINGS IN MEDICATIONS WHICH IS APPROPRIATE FOR WHAT WAS DISPENSED. RECENT URINE TOXICOLOGY REVIEWED. NO UNAUTHORIZED MEDICATIONS. NO ILLICIT SUBSTANCES AND PRESCRIBED MEDICATIONS WERE PRESENT. , RISKS OF NARCOTIC/OPIOD MEDICATIONS INCLUDES BUT IS NOT LIMITED TO RISK OF DEPENDANCE/DEVELOPMENT OF ADDICTION, MOOD DISTURBANCE AND DEPRESSION, OSTEOPOROSIS, HORMONAL AND LABIDAL CHANGES, RESPIRATORY DEPRESSION AND . PATIENT IS ADVISED NOT TO DRIVE OR DRINK ALCOHOL WHILE ON THESE MEDICATIONS. REFERRAL [facility] [place] PALLIATIVE CAREUNKNOWN REASON:MEDICATION MGMNT-CHRONIC PAIN SYNDROME-MULTIPLE COMORBIDITIES-NEUROLOGIC PROCEDURE CODES FA211 ESTABILISHED PATIENT [facility] CHARGE DISPOSITION & COMMUNICATION FOLLOW UP STAR REFERRAL ELECTRONICALLY SIGNED BY JOSÉ MANUEL CARRION ON 07/08/2019 AT 01:31 PM EST DISCLAIMER : THIS IS A VISIT SUMMARY EXTRACTED FROM THE [employer] CHART. IT IS NOT A COPY OF THE [employer] PROGRESS NOTE. BERTHA
== END ==
LOC: M PAIN 13:45
PROVIDERS: ATTEND Nurse Practitioner Family
DX: M79.18 Myalgia, other site (principal); G89.4 Chronic pain syndrome; E11.9 Type 2 diabetes mellitus without complications; J45.909 Unspecified asthma, uncomplicated; Z86.59 Personal history of other mental and behavioral disorders; G25.81 Restless legs syndrome; E03.9 Hypothyroidism, unspecified; F17.210 Nicotine dependence, cigarettes, uncomplicated; Z88.0 Allergy status to penicillin; Z88.1 Allergy status to other antibiotic agents; Z88.2 Allergy status to sulfonamides; Z88.3 Allergy status to other anti-infective agents; Z88.5 Allergy status to narcotic agent; Z91.040 Latex allergy status; E66.01 Morbid (severe) obesity due to excess calories; Z68.42 Body mass index [BMI] 45.0-49.9, adult; Z79.84 Long term (current) use of oral hypoglycemic drugs; Z79.891 Long term (current) use of opiate analgesic; Z79.899 Other long term (current) drug therapy

== ENCOUNTER → 2019-07-22 | Outpatient (CLI) | payer MEDICARE, MEDICAID ==
--- NOTE | 2019-07-23 23:37 | ECWPNPC ---
PATIENT NAME: JASVIR PADILLA : 1980 GENDER: FEMALE VISIT DATE: 07/22/2019 DISCHARGE DATE: 07/22/19 1511 VISIT LOCKED DATE TIME: PHYSICIAN: LILIA WOOTEN RESOURCE: LILIA WOOTEN REASON FOR APPOINTMENT 1. FIBROMYALGIA HISTORY OF PRESENT ILLNESS HISTORY OF PRESENT ILLNESS: HERE FOR FOLLOW-UP OF CHRONIC GENERALIZED PAIN. RATING PAIN LEVEL A 10 OVER 10 VAS. PATIENT IS CRYING UPON ENTRY INTO THE ROOM. ACCOMPANIED IN THE ROOM WITH HER MOTHER. STATES THAT HER PAIN IS SO BAD THE REASON WHY SHE IS CRYING. AT HER LAST VISIT I INCREASED OXYCODONE 10/325 TO MAXIMUM OF 5 TABLETS PER DAY. STATES SHE RAN OUT 3 DAYS AGO. REVIEWED NARCOTIC AGREEMENT. PAIN THE PATIENT DESCRIBES THE PAIN... FALL RISK SCREENING: SCREENING :NO FALLS REPORTED IN THE LAST YEAR CURRENT MEDICATIONS TAKING LAMICTAL 200 MG TABLET 1 TABLET ORALLY DAILY TAKING EFFEXOR XR 150 MG CAPSULE EXTENDED RELEASE 24 HOUR 1 CAPSULE WITH FOOD ORALLY BID TAKING LEVOTHYROXINE SODIUM 200 MCG TABLET 1 TABLET ORALLY ONCE A DAY TAKING FERROUS SULFATE 325 MG CAPSULE 1 TABLET ORALLY TAKING EFFEXOR XR 37.5 MG CAPSULE EXTENDED RELEASE 24 HOUR 2 CAPSULE WITH FOOD ORALLY ONCE A DAY TAKING ZOFRAN 4 MG TABLET 2 TABLETS ORALLY Q 6 PRN TAKING METFORMIN HCL 500 MG TABLET 2 TABLET WITH A MEAL ORALLY BID TAKING OPTIFOAM 4 PAD DIRECTED TOPICALLY DAILY TAKING CYCLOBENZAPRINE HCL 10 MG TABLET 1 TABLET ORALLY QID TAKING PERCOCET 10-325 MG TABLET 1 TO 2 TAB DIRECTED ORALLY 1 TAB N5C-7OD PRN MDD5 TAKING LYRICA 200 MG CAPSULE 1 CAPSULE ORALLY THREE TIMES A DAY MDD3 NOT-TAKING FLUOCINONIDE 0.1 % CREAM DIRECTED EXTERNALLY ARMS AND LEGS BID MEDICATION LIST REVIEWED AND RECONCILED WITH THE PATIENT PAST MEDICAL HISTORY PSEUDO TUMOR CEREBRI [employer]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 PRATT AGE 24 ADHD LEGALLY BLIND ALLERGIES BETADINE: HIVES IODINE: HIVES - ALLERGY LATEX (FOR ALLERGY USE ONLY): HIVES PENICILLIN (FOR ALLERGIES USE ONLY): HIVES CEFTIN: THROAT SWELLING SULFA (FOR ALLERGY USE ONLY): HIVES ERYTHROMYCIN: NAUSEA/VOMITING - SIDE EFFECTS MORPHINE SULFATE: HIVES - ALLERGY SURGICAL HISTORY TOTAL HYSTERECTOMY 2016 SHUNT PLACED 2016 CARPEL TUNNEL BILATERAL 2013 TUMOR REMOVAL LEFT LATERAL BACK 2002 FAMILY HISTORY FATHER: 30 YRS MOTHER: ALIVE, DIAGNOSED WITH DIABETES SIBLINGS: ALIVE 2 BROTHER(S) . 1DAUGHTER(S) . DTR NON BIOLOGICAL. SOCIAL HISTORY GENERAL: TOBACCO USE ARE YOU A:CURRENT SMOKER ARE YOU INTERESTED IN QUITTING?NOT READY TO QUIT COUNSELED THE PATIENT ON SMOKING EFFECTS, EDUCATION [id number]/12/2020 HOW MANY CIGARETTES A DAY DO YOU SMOKE?21-30 HOW SOON AFTER YOU WAKE UP DO YOU SMOKE YOUR FIRST CIGARETTE?WITHIN 5 MIN HOW OFTEN DO YOU SMOKE CIGARETTES?EVERY DAY PATIENT COUNSELED ON THE DANGERS OF TOBACCO USE AND URGED TO QUIT:07/22/2019 IMMUNIZATION PROGRAM MOTHER, OTHER NON-RELATIVE. OTHERS AT HOME: MOTHER, OTHER NON-RELATIVE. 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 EDUCATION LEVEL OF EDUCATION:NOT FINISHED COLLEGE DIET: REGULAR. LANGUAGE LANGUAGES SPOKEN:QATARI DOMESTIC VIOLENCE DO YOU FEEL SAFE IN YOUR ENVIRONMENT?YES RECREATIONAL DRUG USE DRUG USE?YES MEDICAL MARIJUANA HOW OFTEN AND HOW MUCH? TID EXERCISE: NO REGULAR EXERCISE. 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 NEEDED?NO PAIN CLINIC PFS, CLERGY, PUBLIC HEALTH REFERRALS WAS THE PROVIDER NOTIFIED OF ANY PERTINENT INFO?YES HAS THE PATIENT BEEN EDUCATED REGARDING HIS/HER PLAN OF CARE?YES HAS THE PATIENT BEEN EDUCATED REGARDING PAIN, THE RISK FOR PAIN, THE IMPORTANCE OF EFFECTIVE PAIN MANAGEMENT, AND THE PAIN ASSESSMENT PROCESS?YES LATEX QUESTIONNAIRE LATEX ALLERGY : HAVE YOU EVER DEVELOPED ANY TYPE OF REACTION AFTER HANDLING LATEX PRODUCTS SUCH RUBBER GLOVES, CONDOMS, DIAPHRAGMS, BALLOONS, SOCKS, OR UNDERWEAR?YES LATEX ALLERGY : HAVE YOU EVER DEVELOPED ANY TYPE OF REACTION DURING OR AFTER DENTAL APPOINTMENT, VAGINAL/RECTAL EXAMINATION, SURGICAL PROCEDURE, OR ANY OTHER EXPOSURE?YES LATEX RISK : HAVE YOU EVER HAD ANY DIFFICULTY BREATHING OR HIVES AFTER EATING OR HANDLING ANY FRUITS, OR VEGETABLES; SUCH KIWI, BANANAS, STONE FRUITS, OR CHESTNUTSYES LATEX RISK : DO YOU HAVE A PREVIOUS PERSONAL HISTORY OF MORE THAN NINE SURGERIES, SPINA BIFIDA, OR REPEATED CATHERIZATIONS? YES LATEX RISK : ARE YOU FREQUENTLY EXPOSED TO LATEX PRODUCTS IN YOUR OCCUPATION?YES DATE ASKED : 07/22/2019 CAFFEINE CAFFEINE USE?YES HOW OFTEN AND HOW MUCH? 1-2 20 OZ PEPSI/DAY ADVANCE DIRECTIVE ADVANCE DIRECTIVE DISCUSSED WITH PATIENT:YES MOM- BLAISE PADILLA [phone] FAITH FAITH NO PRESYBETERIAN BELIEFS THAT WOULD IMPACT HEALTH CARE. MARITAL STATUS: SINGLE. ALCOHOL SCREENING DID YOU HAVE A DRINK CONTAINING ALCOHOL IN THE PAST YEAR?NO POINTS0 INTERPRETATIONNEGATIVE OCCUPATION: DISABLED. HOSPITALIZATION/MAJOR DIAGNOSTIC PROCEDURE SURGERY RELATED REVIEW OF SYSTEMS REVIEWED BY: PROVIDER: LILIA GEORGES . CONSTITUTIONAL: ANY CHANGE IN YOUR MEDICAL CONDITION? NO . CHILLS NO . FEVER NO . INFECTION: DO YOU HAVE NEW INFECTIONS? NO . DO YOU HAVE HISTORY OF MRSA? NO . MUSCULOSKELETAL: ANY NEW PATTERNS OF PAIN OR NUMBNESS? YES, PT STATES THAT SHE IS HAVING PAIN AND NUMBNESS IN ARMS AND LEGS . GASTROENTEROLOGY: ANY NEW CHANGE IN BOWEL CONTROL? NO . GENITOURINARY: ANY NEW CHANGE IN BLADDER CONTROL? NO . IS THERE A CHANCE YOU COULD BE ? NO . HEMATOLOGY/LYMPH: DO YOU TAKE ANY BLOOD THINNERS? (FOR EXAMPLE- COUMADIN, PLAVIX, AGGRENOX, PLATEL, PRADAXA, OR XARELTO) NO . WHEN WAS YOUR LAST DOSE? DATE: TIME: . NEUROLOGY: HAVE YOU FALLEN IN THE PAST 12 MONTHS? YES, PT STATES THAT SHE WAS AT HOME, NO INJURY, NO REPORT TO ED . ANY NEW EXTREMITY NUMBNESS OR WEAKNESS? PT STATES THAT SHE HAS NUMBNESS IN BOTH LEGS . CARDIOLOGY: DO YOU HAVE A PACEMAKER OR DEFIBRILLATOR? NO . RESPIRATORY: HAVE YOU BEEN SICK IN THE PAST WEEK? NO . FEVER NO . FLU LIKE SYMPTOMS? NO . COUGH NO . INTEGUMENTARY: DO YOU HAVE ANY RASHES OR OPEN SORES? NO . ALLERGIC/IMMUNO: ARE YOU ALLERGIC TO IV DYE? NO . ANY NEW ALLERGIES? NO . PSYCHIATRIC: DO YOU HAVE THOUGHTS OF HURTING YOURSELF OR SOMEONE ELSE? NO . ARE YOU ABUSED, NEGLECTED, OR IN AN UNSAFE ENVIRONMENT? NO . ENDOCRINOLOGY: ARE YOU DIABETIC? NO . OTHER: DO YOU NEED ANY PRESCRIPTIONS? YES, PT WOULD LIKE REFILL OF OXYCODONE . IF YES, PLEASE LIST: ____ . ANY NEW PROBLEMS WITH YOUR MEDICATIONS? NO . WHEN DID YOU LAST EAT? ____ . WHEN DID YOU LAST DRINK? ____ . WHAT DID YOU LAST DRINK? ____ . NAME OF PERSON DRIVING YOU HOME? ____ . DO YOU HAVE ANY OTHER QUESTIONS OR CONCERNS NO . VITAL SIGNS WT 310 LBS, HT 67", BMI 48.55 INDEX, BP 131/76 MM HG, HR 101 /MIN, RR 18 /MIN, TEMP 96.1 F, OXYGEN SAT % 97%, SAFE IN ENV? (Y/N) Y, NA INITIALS AW 1357, REVIEWED BY: VITALIY. EXAMINATION GENERAL EXAMINATION: GENERAL AWAKE,ALERT ,PLEASANT . PSYCH AFFECT NORMAL . LUNGS: LUNG QUESADA ARE CLEAR TO AUSCULTATION BILATERALLY. GOOD MOVEMENT OF AIR . HEART: S1, S2 IN A REGULAR RATE AND RHYTHM. NO SIGNIFICANT MURMURS, RUBS OR GALLOPS NOTED . ASSESSMENTS CHRONIC PAIN SYNDROME - G89.4 (PRIMARY) FIBROMYALGIA - M79.7 CHRONIC PRESCRIPTION OPIATE USE - Z79.891 TREATMENT CHRONIC PAIN SYNDROME START BELBUCA FILM, 450 MCG, 1 FILM TO THE GUM, BUCALLY, EVERY 12 HRS MDD2 CHRONIC PAIN, 30 DAYS, 60, REFILLS 0 DECREASE PERCOCET TABLET, 10-325 MG, 1 TAB, ORALLY, Q6H PRN PAIN MDD4, 30 DAYS, 120, REFILLS 0 REFILL LYRICA CAPSULE, 200 MG, 1 CAPSULE, ORALLY, THREE TIMES A DAY MDD3, 30 DAYS, 90, REFILLS 1 NOTES: PATIENT IS AWARE THAT SHE WILL NEED TO COME IN SOME TIME THIS WEEK FOR URINE TOXICOLOGY. SHE IS AWARE THAT MEDICATION CANNOT BE ADJUSTED BY HER OR HER MOTHER IN THE FUTURE. WE WILL MOVE FORWARD WITH TRYING TO ASSIST WITH PAIN CONTROL BUT SHE IS AWARE THAT IF ANY OCCURRENCE WITH MEDICINE MANAGEMENT IS A PROBLEM, WE WOULD BE DISCHARGING HER FROM OUR PRACTICE.DUE TO PATIENT'S UNCONTROLLED CHRONIC PAIN I'M RECOMMENDING A LONG ACTING PAIN MEDICATION BELBUCA. DUE TO CONCERNS OF EXPOSURE AND RISKS ASSOCIATED WITH CLASS II NARCOTIC PAIN MEDICATIONS AND IN COMPLIANCE WITH CDC RECOMMENDATIONS I'M RECOMMENDING USE OF BELBUCA FOR CHRONIC PAIN MANAGEMENT. I DO NOT FEEL IT'S IN THE PATIENT'S BEST INTEREST TO USE ANY OTHER NARCOTIC PAIN MEDICATIONS THAT MAY BE IN HER FORMULARY DUE TO THE ABOVE., ISTOP REGISTRY REVIEWED AND DEMONSTRATES COMPLLIANCE. , RISKS OF NARCOTIC/OPIOD MEDICATIONS INCLUDES BUT IS NOT LIMITED TO RISK OF DEPENDANCE/DEVELOPMENT OF ADDICTION, MOOD DISTURBANCE AND DEPRESSION, OSTEOPOROSIS, HORMONAL AND LABIDAL CHANGES, RESPIRATORY DEPRESSION AND . PATIENT IS ADVISED NOT TO DRIVE OR DRINK ALCOHOL WHILE ON THESE MEDICATIONS. PREVENTIVE MEDICINE PAIN CLINIC TEACHING: THE PATIENT HAS BEEN EDUCATED REGARDING HIS/HER PLAN OF CARE : DISCUSSED AND REVIEWED WRITTEN AND VERBAL INSTRUCTIONS WITH PATIENT REGARDING TREATMENT PLAN, PT ACKNOWLEDGED UNDERSTANDING. DS PROCEDURE CODES FA211 ESTABILISHED PATIENT [facility] CHARGE DISPOSITION & COMMUNICATION FOLLOW UP 4 WEEKS (REASON: MED MGMNT) ELECTRONICALLY SIGNED BY JOSÉ MANUEL CARRION ON 07/23/2019 AT 11:34 AM EDT DISCLAIMER : THIS IS A VISIT SUMMARY EXTRACTED FROM THE [employer] ([employer] CHART. IT IS NOT A COPY OF THE [employer] PROGRESS NOTE. BERTHA
== END ==
LOC: M PAIN 13:30
PROVIDERS: ATTEND Nurse Practitioner Family
DX: G89.4 Chronic pain syndrome (principal); M79.7 Fibromyalgia; Z79.891 Long term (current) use of opiate analgesic

== ENCOUNTER 2019-09-20 13:54 | Emergency (ER) | payer MEDICARE, MEDICAID ==
[~2019-09-20] VITALS: Ht 170.2 cm; Wt 141.8 kg
[~2019-09-20 13:54] MED LIST changes: +CYCL-707 PO; -CYCL10TA PO
[2019-09-20 13:55] VITALS: BP 142/74
[2019-09-20] MEDS ORDERED: BUSP5TA PO (14:09)
[2019-09-20] MEDS ORDERED: ARIP1TAB6 PO (14:09)
== END 2019-09-20 14:39 | disposition home or self-care (01) ==
LOC: M ED 13:54
DX: F11.20 Opioid dependence, uncomplicated (principal); M79.7 Fibromyalgia; J45.909 Unspecified asthma, uncomplicated; F31.9 Bipolar disorder, unspecified; F43.10 Post-traumatic stress disorder, unspecified; Z88.0 Allergy status to penicillin; Z88.1 Allergy status to other antibiotic agents

== ENCOUNTER 2019-09-20 16:58 | Emergency (ER) | payer MEDICARE, MEDICAID ==
[~2019-09-20 16:58] MED LIST changes: +ARIP1TAB6 PO
[2019-09-20] MEDS ORDERED: LIDOCAINE 5% (LIDODERM) PATCH TD ONE (18:30)
[2019-09-20 19:12] VITALS: BP 135/67
[2019-09-20] MEDS ORDERED: **NOTE PATIENT COMMENT** MISC XX SCH (21:00)
== END 2019-09-20 19:14 | disposition home or self-care (01) ==
LOC: M ED 16:58
DX: F60.3 Borderline personality disorder (principal); Z76.0 Encounter for issue of repeat prescription; F11.20 Opioid dependence, uncomplicated; M79.7 Fibromyalgia; J45.909 Unspecified asthma, uncomplicated; F31.9 Bipolar disorder, unspecified; F43.10 Post-traumatic stress disorder, unspecified; F17.200 Nicotine dependence, unspecified, uncomplicated; E11.9 Type 2 diabetes mellitus without complications; E03.9 Hypothyroidism, unspecified; F41.9 Anxiety disorder, unspecified; F90.9 Attention-deficit hyperactivity disorder, unspecified type; Z88.0 Allergy status to penicillin; Z88.1 Allergy status to other antibiotic agents; Z88.6 Allergy status to analgesic agent; Z88.8 Allergy status to other drugs, medicaments and biological substances; Z91.040 Latex allergy status; Z79.899 Other long term (current) drug therapy

== ENCOUNTER → 2020-06-15 | Outpatient (CLI) | payer MEDICARE, MEDICAID ==
--- NOTE | 2020-06-16 12:56 | SLEEPCENT ---
DATE: 06/15/2020 ORDERED BY: Giuliana Larios Nocturnal polysomnography was performed for evaluation of sleep physiology. There was 8 hours and 41 minutes of data reviewed. There was 399.5 minutes of sleep identified. Sleep latency was normal at 10 minutes. REM sleep was not achieved. Sleep architecture showed poor progression and fragmentation. Overall sleep efficiency was 77.6%, but there was no REM time seen. EKG shows a sinus rhythm with an average heart rate of 85 beats per minute. Rate ranged 75-100. EEG showed normal waveforms for wake and sleep. There were 243 respiratory events identified of 10 seconds in duration or greater for an apnea-hypopnea index of 36.5. The events were obstructive for the most part, not related to sleep stage nor body posture. Arousals from respiratory events occurred 2.7 times per hour, and oxygen desaturations were seen into the 70s. There was some activity in the limb leads, but limb movement arousals were few. IMPRESSION: Obstructive sleep apnea syndrome (G47.33). Apnea-hypopnea index 36.5. RECOMMENDATION: The patient should be encouraged to return to the sleep disorder center for pressure therapy. In the interim, alcohol and sedative avoidance should be practiced and caution exercised during the operation of motor vehicles.
== END ==
LOC: M SLEEP 20:00
PROVIDERS: ATTEND Nurse Practitioner Family
DX: G47.33 Obstructive sleep apnea (adult) (pediatric) (principal)

== ENCOUNTER → 2020-08-24 | Outpatient (CLI) | payer MEDICAID, MEDICARE ==
--- NOTE | 2020-08-25 14:38 | SLEEPCENT ---
NOCTURNAL POLYSOMNOGRAPHY CPAP TITRATION DATE: 08/24/2020 ORDERED BY: YOAN Martin Nocturnal polysomnography was performed for the titration of pressure therapy in this patient with obstructive sleep apnea syndrome with apnea-hypopnea index of 36.5. For testing a ResMed AirFit F20 full face mask of medium size was used, 4 cm of water pressure were applied to the circuit, and the lights were extinguished. 7 hours and 41 minutes of data were reviewed. There were 400.5 minutes of sleep identified. Sleep latency was normal at 8.5 minutes. REM sleep was delayed at 257 minutes. Sleep architecture improved with optimal pressure therapy. There was evidence of REM rebound late in the study. Overall sleep efficiency was 87.5%. The electrocardiogram showed a sinus rhythm with an average heart rate of 82 beats per minute. EEG showed reasonably normal waveforms for wake and sleep. Persistence of respiratory events prompted increases in CPAP pressure and best sleep was seen at a CPAP pressure of 16. Despite optimal pressure therapy, hypoventilatory desaturations prompted the addition of supplemental oxygen. Best sleep was seen on a CPAP pressure 16 with 2 liters of oxygen bled through the system. IMPRESSION: Obstructive sleep apnea syndrome (G47.33). RECOMMENDATION: Nightly use of pressure therapy 16 cm of water with 2 liters of oxygen bled through the system to address oxygen desaturations.
== END ==
LOC: M SLEEP 20:00
PROVIDERS: ATTEND Nurse Practitioner Family
DX: G47.33 Obstructive sleep apnea (adult) (pediatric) (principal)

== ENCOUNTER → 2020-10-05 | Outpatient (CLI) | payer MEDICARE, OTHER | LOC: M RAD 13:18 → EDSEX 13:30 | PROVIDERS: ATTEND Otolaryngology | DX: R13.10 Dysphagia, unspecified (principal); R07.0 Pain in throat ==

== ENCOUNTER → 2020-11-03 | Outpatient (CLI) | payer MEDICARE, OTHER ==
[~2020-11-03] MED LIST changes: +ARIP1TAB PO; +BUSP10TA PO; +CRES20TA2 PO; +FURO20TA2 PO; +METF-839 PO; -OXYC1TAB15 PO; +OXYC7.5T3 PO; +PROZ20CA11 PO; +SUBO8MIS SL
--- NOTE | 2020-11-03 10:51 | REPVR ---
PROCEDURE INFORMATION: Exam: CT Neck Without Contrast Exam date and time: 11/03/2020 10:09 AM Age: 39 years old Clinical indication: Painful swallowing; Additional info: Dysphagia TECHNIQUE: Imaging protocol: Computed tomography images of the neck without contrast. Radiation optimization: All CT scans at this facility use at least one of these dose optimization techniques: automated exposure control; mA and/or kV adjustment per patient size (includes targeted exams where dose is matched to clinical indication); or iterative reconstruction. COMPARISON: MRI ORBIT FACE NECK W/O FOLL W 11/28/2014 1:27 PM FINDINGS: Cerebral ventricles: Right ventriculostomy catheter terminating in the region of the foramina Valiente partially seen. Paranasal sinuses: Small mucous retention cyst in right maxillary sinus. Nasopharynx: Unremarkable. Oropharynx: Unremarkable. No significant tonsillar enlargement. Hypopharynx: Narrowing of the left pyriform sinus with small soft tissue density measuring about 2 mm. Right pyriform sinus is unremarkable. Larynx: Mild narrowing of the left vallecula compared to the right. No lesion is seen. Retropharyngeal space: Unremarkable. Submandibular/Parotid glands: Normal. Glands are normal in size. Thyroid: Normal. No enlarged or calcified nodules. Lymph nodes: Subcentimeter bilateral cervical chain lymph nodes, these are not pathologically enlarged by CT criteria. Trachea: Visualized trachea is unremarkable. Lungs: Mild ground-glass densities of bilateral lungs likely edema. Bones/joints: Unremarkable. No acute fracture. Soft tissues: Unremarkable. No significant soft tissue swelling. IMPRESSION: Narrowing of the left pyriform sinus with small soft tissue density measuring about 2 mm. Right pyriform sinus is unremarkable. Mild narrowing of the left vallecula compared to the right. No lesion is seen. Direct visualization by ENT is recommended. Electronically signed by: Shayla Burkett On 11/03/2020 10:50:48 AM
== END ==
LOC: M RAD 09:56
PROVIDERS: ATTEND Otolaryngology
DX: R13.10 Dysphagia, unspecified (principal)

== ENCOUNTER → 2020-12-28 | Outpatient (CLI) | payer MEDICARE, MEDICAID ==
--- NOTE | 2020-12-28 15:00 | REP ---
INDICATION: OBSTRUCTIVE SLEEP APNEA (ADULT) (PEDIATRIC). COMPARISON: Frontal view of the chest obtained 03/10/2019 TECHNIQUE: PA and lateral FINDINGS: The superior mediastinal structures are midline. The cardiac silhouette is unremarkable in size, shape, and position. The diaphragmatic surfaces of the lungs are regular, and the costophrenic angles are clear. The pulmonary govea are clear. In the right hilum there is a potential nodule which cannot be confirmed on the prior radiographs. The imaged osseous structures are intact. A portion of a right-sided ventriculoperitoneal shunt catheter is identified. IMPRESSION: Possible right hilar nodule. Chest CT with contrast recommended. <Electronically signed by Alfredo Alba > 12/28/20 [id number]
== END ==
LOC: M RAD 14:41
PROVIDERS: ATTEND Nurse Practitioner Family
DX: G47.33 Obstructive sleep apnea (adult) (pediatric) (principal)

== ENCOUNTER → 2021-02-01 | Outpatient (CLI) | payer MEDICARE, OTHER ==
--- NOTE | 2021-02-01 16:07 | REPVR ---
PROCEDURE INFORMATION: Exam: CT Head Without Contrast Exam date and time: 02/01/2021 3:47 PM Age: 40 years old Clinical indication: Other: Other specified forms of tremor TECHNIQUE: Imaging protocol: Computed tomography of the head without contrast. Axial and coronal reformatted images were created and reviewed. Radiation optimization: All CT scans at this facility use at least one of these dose optimization techniques: automated exposure control; mA and/or kV adjustment per patient size (includes targeted exams where dose is matched to clinical indication); or iterative reconstruction. COMPARISON: CT Head without contrast 12/09/2018 11:21 AM FINDINGS: Tubes, catheters and devices: Unchanged right transfrontal ventriculostomy catheter. Brain: No CT evidence of acute intracranial hemorrhage or acute territorial infarction. No significant mass effect or midline shift. Basal cisterns patent. Cerebral ventricles: Normal in size and configuration. Paranasal sinuses: Unremarkable. No fluid levels. Mastoid air cells: Grossly unremarkable. Bones/joints: No acute osseous abnormality. Soft tissues: Grossly unremarkable. IMPRESSION: 1. No CT evidence of acute intracranial pathology. 2. Additional findings, as above. Electronically signed by: Freddy Rosario On 02/01/2021 16:07:33 PM
== END ==
LOC: M RAD 15:13
PROVIDERS: ATTEND Nurse Practitioner Family
DX: G25.2 Other specified forms of tremor (principal); R41.89 Other symptoms and signs involving cognitive functions and awareness; G93.2 Benign intracranial hypertension; F41.1 Generalized anxiety disorder

== ENCOUNTER → 2021-02-01 | Outpatient (CLI) | payer MEDICARE, OTHER ==
--- NOTE | 2021-02-01 16:41 | REP ---
INDICATION: ABNORMAL FINDING OF LUNG FIELD COMPARISON: None. TECHNIQUE: Standard helical technique without intravenous contrast administration. This causes exam limitations. FINDINGS: There is an aberrant right subclavian artery. There is no evidence of mediastinal or hilar adenopathy. There are no pleural or pericardial effusions. The imaged upper abdomen shows partially imaged hepatosplenomegaly. The imaged osseous structures are within normal limits. Evaluation of the lung govea shows a 5 mm size nodule in the fissure between the right upper and right middle lobes and a 6 mm sized pleural base nodule in the left upper lobe. IMPRESSION: Lung nodules as described above. Lung rads category 3 lesions. Six-month follow-up CT examination of the chest is recommended as per the revised Fleischner society criteria. Other findings as described above. <Electronically signed by Alfredo Alba > 02/01/21 [id number]
== END ==
LOC: M RAD 15:15
PROVIDERS: ATTEND Nurse Practitioner Family
DX: R91.8 Other nonspecific abnormal finding of lung field (principal); G25.2 Other specified forms of tremor; R41.89 Other symptoms and signs involving cognitive functions and awareness; G93.2 Benign intracranial hypertension; F41.1 Generalized anxiety disorder

== ENCOUNTER → 2021-03-16 | Outpatient (CLI) | payer MEDICARE, MEDICAID ==
[~2021-03-16] MED LIST changes: +TEST200I14 IM
[2021-03-16 12:32] LABS: HEMATOCRIT 56.3 % (42.0-52.0); MEAN CORPUSCULAR HEMOGLOBIN 30.4 pg (27.0-33.0); MEAN CORPUSCULAR HGB CONC 33.7 g/dl (32.0-36.5); MEAN CORPUSCULAR VOLUME 89.9 fl (80.0-96.0); PLATELET COUNT, AUTOMATED 234 10^3/uL (150-450); RED BLOOD COUNT 6.26 10^6/uL (4.30-6.10); WHITE BLOOD COUNT 9.6 10^3/uL (4.0-10.0)
[2021-03-16 12:52] LABS: ALBUMIN 3.9 GM/DL (3.2-5.2); ALT/SGPT 28 U/L (12-78); BILIRUBIN,TOTAL 0.8 MG/DL (0.2-1.0); BLOOD UREA NITROGEN 8 MG/DL (7-18); CALCIUM LEVEL 9.7 MG/DL (8.5-10.1); CARBON DIOXIDE LEVEL 28 MEQ/L (21-32); CHLORIDE LEVEL 97 MEQ/L (98-107); CREATININE FOR GFR 0.92 MG/DL (0.70-1.30); GLOMERULAR FILTRATION RATE > 60.0 (>60); GLUCOSE, FASTING 371 MG/DL (70-100); POTASSIUM SERUM 3.9 MEQ/L (3.5-5.1); SODIUM LEVEL 133 MEQ/L (136-145); TOTAL PROTEIN 7.8 GM/DL (6.4-8.2)
[2021-03-16 12:56] LABS: VITAMIN B12 LEVEL 334 PG/ML (247-911)
== END ==
LOC: M LAB 11:22
PROVIDERS: ATTEND Nurse Practitioner Family
DX: G25.2 Other specified forms of tremor (principal); R41.89 Other symptoms and signs involving cognitive functions and awareness; G93.2 Benign intracranial hypertension; F41.1 Generalized anxiety disorder; Z79.899 Other long term (current) drug therapy

== ENCOUNTER → 2021-07-22 | Outpatient (CLI) | payer MEDICARE, MEDICAID ==
[~2021-07-22] MED LIST changes: +BUPR1SUB35 SL; +ONDA-84 PO; -ONDA8TAB10 PO; +OZEM2INJ SC; +SUBL300I SC
[2021-07-22 10:41] LABS: BASO # 0.1 10^3/uL (0.0-0.2); BASO % 1.1 % (0.0-1.0); EOS # 0.5 10^3/uL (0.0-0.5); EOS % 5.4 % (0.0-3.0); HEMOGLOBIN 18.1 g/dl (13.5-17.5); LYMPH # 1.9 10^3/uL (1.5-5.0); LYMPH % 18.7 % (24.0-44.0); MEAN CORPUSCULAR HEMOGLOBIN 30.3 pg (27.0-33.0); MEAN CORPUSCULAR HGB CONC 32.9 g/dl (32.0-36.5); MEAN CORPUSCULAR VOLUME 92.1 fl (80.0-96.0); MONO # 0.4 10^3/uL (0.0-0.8); MONO % 4.2 % (2.0-8.0); NEUTROPHILS % 69.8 % (36.0-66.0); PLATELET COUNT, AUTOMATED 253 10^3/uL (150-450); RED BLOOD COUNT 5.97 10^6/uL (4.30-6.10)
[2021-07-22 11:01] LABS: ALBUMIN 4.4 GM/DL (3.2-5.2); ALT/SGPT 29 U/L (12-78); BILIRUBIN,TOTAL 0.2 MG/DL (0.2-1.0); BLOOD UREA NITROGEN 10 MG/DL (7-18); CALCIUM LEVEL 9.8 MG/DL (8.5-10.1); CARBON DIOXIDE LEVEL 32 MEQ/L (21-32); CHLORIDE LEVEL 102 MEQ/L (98-107); CREATININE FOR GFR 0.74 MG/DL (0.70-1.30); GLOMERULAR FILTRATION RATE > 60.0 (>60); GLUCOSE, FASTING 114 MG/DL (70-100); POTASSIUM SERUM 4.3 MEQ/L (3.5-5.1); RHEUMATOID FACTOR QUANT < 10.0 IU/ML (<15.0); SODIUM LEVEL 139 MEQ/L (136-145); TOTAL PROTEIN 8.1 GM/DL (6.4-8.2)
[2021-07-22 11:25] LABS: ERYTHROCYTE SEDIMENTATION RATE 1 mm/hr (0-15)
[2021-07-23 12:06] LABS: ANTINUCLEAR ANTIBODIES DIRECT Negative (Negative)
[2021-07-28 10:23] LABS: DRVV SCREEN 42.7 SEC
[2021-07-28 10:26] LABS: PTT LUPUS TYPE ANTICOAG SCREEN 1.1 (0-1.2)
== END ==
LOC: M LAB 08:41
PROVIDERS: ATTEND Nurse Practitioner Family
DX: M54.50 Low back pain, unspecified (principal); E03.9 Hypothyroidism, unspecified; E11.65 Type 2 diabetes mellitus with hyperglycemia; Z79.899 Other long term (current) drug therapy

== ENCOUNTER → 2021-07-22 | Outpatient (CLI) | payer MEDICARE, MEDICAID ==
[2021-07-22 10:42] LABS: CREATININE, URINE 36.7 MG/DL; MALB URINE SIEMENS 5.7 MG/L; MAU/CREAT RATIO 15.5 MCG/MG (0.0-30.0)
[2021-07-22 11:05] LABS: HEMOGLOBIN A1c 6.5 %
[2021-07-22 11:09] LABS: ALBUMIN 4.3 GM/DL (3.2-5.2); ALT/SGPT 31 U/L (12-78); BILIRUBIN,TOTAL 0.3 MG/DL (0.2-1.0); BLOOD UREA NITROGEN 11 MG/DL (7-18); CALCIUM LEVEL 9.4 MG/DL (8.5-10.1); CARBON DIOXIDE LEVEL 32 MEQ/L (21-32); CHLORIDE LEVEL 101 MEQ/L (98-107); CHOLESTEROL LEVEL 140 MG/DL (<200); CHOLESTEROL RISK RATIO 4.242 (<5); CREATININE FOR GFR 0.76 MG/DL (0.70-1.30); FREE T4 1.19 NG/DL (0.76-1.46); GLOMERULAR FILTRATION RATE > 60.0 (>60); GLUCOSE, FASTING 109 MG/DL (70-100); HDL CHOLESTEROL 33 MG/DL (>40); LDL CHOLESTEROL 37 MG/DL (<100); NON-HDL-C 107 MG/DL; POTASSIUM SERUM 4.2 MEQ/L (3.5-5.1); SODIUM LEVEL 138 MEQ/L (136-145); TOTAL PROTEIN 7.9 GM/DL (6.4-8.2); TRIGLYCERIDES LEVEL 349 MG/DL (<150)
== END ==
LOC: M LAB 08:45
PROVIDERS: ATTEND Physician Assistant
DX: E03.9 Hypothyroidism, unspecified (principal); E11.65 Type 2 diabetes mellitus with hyperglycemia

== ENCOUNTER → 2022-05-18 | Outpatient (CLI) | payer MEDICARE, MEDICAID ==
[~2022-05-18] MED LIST changes: +ESZO1TAB8; +TRAZ-257; +VENL150C43; +VENL75CA47
== END ==
LOC: M PLAIMG 10:44
PROVIDERS: ATTEND Internal Medicine Pulmonary Disease
DX: R91.8 Other nonspecific abnormal finding of lung field (principal)

== ENCOUNTER → 2022-08-16 | Outpatient (CLI) | payer MEDICAID, MEDICARE, OTHER ==
[2022-08-16 09:37] LABS: IRON (FE) 49 UG/DL (65-175); PERCENT SATURATION 13.5 % (19.7-50.0); TOTAL IRON BINDING CAPACITY 364 UG/DL (250-425)
[2022-08-16 09:38] LABS: ALBUMIN 3.9 G/DL (3.2-5.2); ALKALINE PHOSPHATASE 104 U/L (46-116); ALT/SGPT 9 U/L (7.0-40); AST/SGOT 9 U/L (<34); BILIRUBIN,DIRECT 0.1 MG/DL (<0.4); BILIRUBIN,TOTAL 0.4 MG/DL (0.3-1.2); TOTAL PROTEIN 6.8 G/DL (5.7-8.2)
[2022-08-16 09:56] LABS: HEPATITIS B SURFACE ANTIGEN NEGATIVE (NEGATIVE)
[2022-08-16 10:18] LABS: HEPATITIS B CORE ANTIBODY IGM NEGATIVE (NEGATIVE); HEPATITIS C VIRUS ABY INDEX 0.1 INDEX (<0.8)
[2022-08-16 14:14] LABS: IMMUNOGLOBULIN A 236.4 MG/DL (40-350)
[2022-08-18 19:07] LABS: ANCA-ATYPICAL <1:20 titer (Neg:<1:20); ANTI-MITOCHONDRIAL ANTIBODY <20.0 Units (0.0-20.0); ANTINUCLEAR ANTIBODIES DIRECT Negative (Negative); CERULOPLASMIN 21.1 mg/dL (16.0-31.0); CYTOPLASMIC NEUTROP AB ANCA-C <1:20 titer (Neg:<1:20); PERINUCLEAR AB ANCA-P <1:20 titer (Neg:<1:20); TISSUE TRANSGLUTAMINASE IgA <2 U/mL (0-3)
== END ==
LOC: M LAB 08:27
PROVIDERS: ATTEND Internal Medicine Gastroenterology
DX: R16.0 Hepatomegaly, not elsewhere classified (principal)

== ENCOUNTER → 2022-08-23 | Outpatient (CLI) | payer MEDICARE ==
[2022-08-23 09:35] LABS: BLOOD UREA NITROGEN 13 MG/DL (9-23); CALCIUM LEVEL 8.6 MG/DL (8.5-10.1); CARBON DIOXIDE LEVEL 32 MMOL/L (20-31); CHLORIDE LEVEL 103 MMOL/L (98-107); CHOLESTEROL LEVEL 109 MG/DL (<200); CHOLESTEROL RISK RATIO 4.12 (<5); CREATININE FOR GFR 0.72 MG/DL (0.70-1.30); GLOMERULAR FILTRATION RATE > 60.0 (>60); GLUCOSE, FASTING 130 MG/DL (60-100); HDL CHOLESTEROL 26.4 MG/DL (>40); LDL CHOLESTEROL 36.4 MG/DL (<100); NON-HDL-C 82.6 MG/DL; POTASSIUM SERUM 3.2 MMOL/L (3.5-5.1); SODIUM LEVEL 140 MMOL/L (136-145); TRIGLYCERIDES LEVEL 231 MG/DL (<150)
[2022-08-23 09:35] LABS: CREATININE, URINE 40.5 MG/DL; MALB URINE SIEMENS < 3.0 MG/L; MAU/CREAT RATIO 7.4 MCG/MG (0.0-30.0)
[2022-08-23 09:37] LABS: FREE T3 3.8 PG/ML (2.3-4.2)
[2022-08-23 10:21] LABS: HEMOGLOBIN A1c 5.1 % (4.0-6.0)
== END ==
LOC: M LAB 08:20
PROVIDERS: ATTEND Internal Medicine
DX: E03.9 Hypothyroidism, unspecified (principal); E11.9 Type 2 diabetes mellitus without complications

== ENCOUNTER → 2022-09-12 | Outpatient (CLI) | payer MEDICARE, MEDICAID | LOC: M RAD 09:35 | PROVIDERS: ATTEND Internal Medicine Gastroenterology | DX: R16.0 Hepatomegaly, not elsewhere classified (principal) ==

== ENCOUNTER → 2022-11-15 | Outpatient (CLI) | payer MEDICARE, OTHER ==
[~2022-11-15] MED LIST changes: +TRAZ300T2 PO
[2022-11-15 09:41] LABS: PLATELET COUNT, AUTOMATED 224 10^3/uL (150-450)
[2022-11-15 09:54] LABS: INR 0.92; PROTHROMBIN TIME 12.6 SECONDS (12.5-14.5)
== END ==
LOC: M LAB 08:59
PROVIDERS: ATTEND Internal Medicine Gastroenterology
DX: R16.2 Hepatomegaly with splenomegaly, not elsewhere classified (principal)

== ENCOUNTER → 2022-12-26 | Outpatient (REF) | payer MEDICARE, OTHER ==
[2022-12-26 11:40] LABS: HEMOGLOBIN A1c 4.1 % (4.0-6.0)
[2022-12-26 11:46] LABS: BLOOD UREA NITROGEN 11 MG/DL (9-23); CALCIUM LEVEL 8.7 MG/DL (8.5-10.1); CARBON DIOXIDE LEVEL 31 MMOL/L (20-31); CHLORIDE LEVEL 106 MMOL/L (98-107); CHOLESTEROL LEVEL 93 MG/DL (<200); CHOLESTEROL RISK RATIO 3.45 (<5); CREATININE FOR GFR 0.72 MG/DL (0.70-1.30); GLOMERULAR FILTRATION RATE > 60.0 (>60); GLUCOSE, FASTING 120 MG/DL (60-100); HDL CHOLESTEROL 26.9 MG/DL (>40); LDL CHOLESTEROL 39.7 MG/DL (<100); NON-HDL-C 66.1 MG/DL; POTASSIUM SERUM 3.9 MMOL/L (3.5-5.1); SODIUM LEVEL 142 MMOL/L (136-145); TRIGLYCERIDES LEVEL 132 MG/DL (<150)
[2022-12-26 11:48] LABS: THYROID STIMULATING HORMONE 0.172 uIU/ML (0.55-4.78)
== END ==
LOC: M LAB REF 10:57
PROVIDERS: ATTEND Nurse Practitioner Family
DX: E11.9 Type 2 diabetes mellitus without complications (principal); E03.9 Hypothyroidism, unspecified; E78.2 Mixed hyperlipidemia

== ENCOUNTER → 2023-01-19 | Outpatient (CLI) | payer MEDICARE, MEDICAID ==
[2023-01-19 13:03] LABS: BASO # 0.1 10^3/uL (0.0-0.2); BASO % 0.9 % (0.0-1.0); EOS # 0.3 10^3/uL (0.0-0.5); EOS % 4.2 % (0.0-3.0); HEMATOCRIT 47.1 % (42.0-52.0); HEMOGLOBIN 15.6 g/dl (13.5-17.5); LYMPH % 14.3 % (24.0-44.0); MEAN CORPUSCULAR HEMOGLOBIN 29.2 pg (27.0-33.0); MEAN CORPUSCULAR HGB CONC 33.1 g/dl (32.0-36.5); MEAN CORPUSCULAR VOLUME 88.2 fl (80.0-96.0); MONO # 0.3 10^3/uL (0.0-0.8); MONO % 4.4 % (2.0-8.0); NEUTROPHILS % 75.7 % (36.0-66.0); PLATELET COUNT, AUTOMATED 192 10^3/uL (150-450); RED BLOOD COUNT 5.34 10^6/uL (4.30-6.10); WHITE BLOOD COUNT 6.6 10^3/uL (4.0-10.0)
[2023-01-19 13:37] LABS: ALBUMIN 4.2 G/DL (3.2-5.2); ALKALINE PHOSPHATASE 95 U/L (46-116); ALT/SGPT 21 U/L (7.0-40); AST/SGOT < 8 U/L (<34); BILIRUBIN,TOTAL 0.7 MG/DL (0.3-1.2); BLOOD UREA NITROGEN 13 MG/DL (9-23); CARBON DIOXIDE LEVEL 33 MMOL/L (20-31); CHLORIDE LEVEL 104 MMOL/L (98-107); CREATININE FOR GFR 0.68 MG/DL (0.70-1.30); GLOMERULAR FILTRATION RATE > 60.0 (>60); GLUCOSE, FASTING 93 MG/DL (60-100); POTASSIUM SERUM 3.6 MMOL/L (3.5-5.1); SODIUM LEVEL 142 MMOL/L (136-145); TOTAL PROTEIN 7.2 G/DL (5.7-8.2)
== END ==
LOC: M RAD 12:03
PROVIDERS: ATTEND Nurse Practitioner Family
DX: Z01.818 Encounter for other preprocedural examination (principal)

== ENCOUNTER → 2023-02-05 | Outpatient (CLI) | payer MEDICARE, MEDICAID | LOC: M RAD 16:15 | PROVIDERS: ATTEND Psychiatry & Neurology Neurology | DX: G93.2 Benign intracranial hypertension (principal) ==

== ENCOUNTER → 2023-02-08 | Outpatient (CLI) | payer MEDICARE, MEDICAID | LOC: M WHC 08:20 | PROVIDERS: ATTEND Physician Assistant | DX: N62 Hypertrophy of breast (principal) | CPT/HCPCS: 77066; G0279 ==

== ENCOUNTER → 2023-03-21 | Outpatient (CLI) | payer MEDICARE, MEDICAID | LOC: M RAD 11:08 | PROVIDERS: ATTEND Plastic Surgery Surgery of the Hand | DX: N62 Hypertrophy of breast (principal); Z97.8 Presence of other specified devices ==

== ENCOUNTER 2023-04-05 09:56 | Observation (INO) | payer MEDICARE, MEDICAID ==
[~2023-04-05] VITALS: Ht 170.2 cm; Wt 99.7 kg
[~2023-04-05 09:56] MED LIST changes: +ACET-683 PO; +CLINDAMYCIN 900 MG in IV 1 EA IV ONE; +COLA100C5 PO; +CYAN-1 PO; -EFFE150C2 PO; +EFFE150C3 PO; -EFFE37.5 PO; +EFFE37.52 PO; +ERGO500029 PO; +HEPARIN SOD (PORCINE) 5000UNITS/ML 1ML VIAL/SYRINGE SQ ONE; +IBUP1TAB7 PO; +LIDOCAINE 2% 100MG/5ML SDV (FOR ANES.) As Ordered ONE; +MIDAZOLAM INJ 2MG/2ML VIAL As Ordered ONE; +MIRA3350 PO; +ONDANSETRON 4MG 2ML VIAL As Ordered ONE; +ROCURONIUM BROMIDE 50MG/5ML VIAL As Ordered ONE; +SEMA1PEN2 SQ; +SIME125T PO; +SUGAMMADEX SODIUM 500 MG/5 ML VIAL (BRIDION) As Ordered ONE; +TRAZ-257 PO; +dexmedeTOMIDine (4MCG/ML)200MCG/50ML BTL (PRECEDEX) As Ordered ONE; +fentaNYL 250 MCG/5 ML INJECTION As Ordered ONE; +propofoL 200 MG/20 ML VIAL As Ordered ONE
[2023-04-05] MEDS ORDERED: DEXTROSE 50% 50ML SYRINGE IV PRN (10:50)
[2023-04-05] MEDS ORDERED: GLUCAGON INJ 1MG VIAL SC PRN (10:50)
[2023-04-05] MEDS ORDERED: LIDOCAINE 1% SDV 5ML VIAL SC PRN (10:50)
[2023-04-05] MEDS ORDERED: INSULIN LISPRO (NovoLOG) PER UNIT SC PRN (10:50)
[2023-04-05] MEDS ORDERED: GLUCOSE 4GM CHEW TABLET PO PRN (10:50)
[2023-04-05] MEDS ORDERED: LR 1,000 ML IV SCH ×2 (10:50→19:20)
[2023-04-05] MEDS ORDERED: GENTAMICIN SULF 80MG/2ML VIAL As Ordered ONE (12:32)
[2023-04-05] MEDS ORDERED: ACETAMINOPHEN 1000MG 100ML IV BAG As Ordered ONE (14:42)
[2023-04-05] MEDS ORDERED: LACRILUBE (AKWA TEARS) OPHTH OINT 3.5GM As Ordered ONE (14:42)
[2023-04-05] MEDS ORDERED: ROCURONIUM BROMIDE 50MG/5ML VIAL As Ordered ONE ×3 (14:54→17:12)
[2023-04-05] MEDS ORDERED: ePHEDrine SULFATE 25 MG/5 ML(5MG/ML) SYRINGE As Ordered ONE ×2 (15:00→15:43)
[2023-04-05] MEDS ORDERED: HYDROmorphone HCL 2MG/ML 1ML VIAL As Ordered ONE (15:33)
[2023-04-05] MEDS ORDERED: PHENYLephrine 500MCG 5ML (100MCG/ML) SYRINGE As Ordered ONE ×2 (15:50→18:22)
[2023-04-05] MEDS ORDERED: ESMOLOL INJ 100MG/10ML VIAL As Ordered ONE (17:00)
[2023-04-05] MEDS ORDERED: ceFAZolin 2 GM/D5W 50 ML IV BAG As Ordered ONE (17:22)
[2023-04-05] MEDS ORDERED: CLINDAMYCIN 900MG/50ML PREMIX BAG As Ordered ONE (17:26)
[2023-04-05] MEDS ORDERED: fentaNYL 100 MCG/2 ML INJECTION IV PRN (19:20)
[2023-04-05] MEDS ORDERED: ONDANSETRON 4MG 2ML VIAL IV PRN (19:20)
[2023-04-05] MEDS ORDERED: traMADol 50 MG TAB PO PRN (19:55)
[2023-04-05] MEDS: oxyCODONE 5MG TAB PO PRN ×2 (20:15→20:47)
[2023-04-05] MEDS: HYDROMORPHONE HCL 0.5 MG/ 0.5 ML SYRINGE IV PRN ×2 (20:17→20:25)
[2023-04-05] MEDS ORDERED: ACETAMINOPHEN TAB 650MG DOSE (2X325MG) PO PRN (20:50)
[2023-04-05] MEDS ORDERED: traZODone 50 MG TAB PO ONE (20:55)
[2023-04-05 21:03] VITALS: BP 140/76; TEMP 98.4; O2SAT 95
[2023-04-05 21:40] VITALS: BP 131/73; TEMP 98.7; O2SAT 94
[2023-04-05] MEDS: CLINDAMYCIN 900 MG in IV 1 EA IV SCH (22:44)
[2023-04-05 22:50] VITALS: BP 134/73; TEMP 98.4; O2SAT 93
[2023-04-05 23:43] VITALS: BP 138/69; TEMP 98.8; O2SAT 87
[2023-04-06 01:38] VITALS: BP 138/69; TEMP 98.8; O2SAT 88
[2023-04-06] MEDS: PERCOCET 5MG/325MG TAB PO PRN ×2 (03:09→09:33)
[2023-04-06] MEDS: CLINDAMYCIN 900 MG in IV 1 EA IV SCH (05:30)
[2023-04-06] MEDS ORDERED: LEVOTHYROXINE 12.5MCG PER 1/2 TAB (0.0125MG) PO SCH (06:00)
[2023-04-06] MEDS ORDERED: LEVOTHYROXINE 75MCG TABLET (0.075MG) PO SCH (06:00)
[2023-04-06] MEDS ORDERED: LEVOTHYROXINE 100MCG TABLET (0.1MG) PO SCH (06:00)
[2023-04-06 06:51] VITALS: BP 121/64; TEMP 98.2; O2SAT 90
[2023-04-06] MEDS ORDERED: lamoTRIgine 100MG TAB PO SCH (09:00)
[2023-04-06 09:18] LABS: BLOOD UREA NITROGEN 9 MG/DL (9-23); CALCIUM LEVEL 8.2 MG/DL (8.5-10.1); CARBON DIOXIDE LEVEL 27 MMOL/L (20-31); CHLORIDE LEVEL 104 MMOL/L (98-107); CREATININE FOR GFR 0.59 MG/DL (0.70-1.30); GLOMERULAR FILTRATION RATE > 60.0 (>60); GLUCOSE, FASTING 130 MG/DL (60-100); POTASSIUM SERUM 3.8 MMOL/L (3.5-5.1); SODIUM LEVEL 137 MMOL/L (136-145)
[2023-04-06] MEDS ORDERED: CLIN150C17 PO (09:46)
[2023-04-06 10:32] VITALS: BP 117/62; TEMP 97.9; O2SAT 94
== END 2023-04-06 11:48 | disposition home or self-care (01) ==
LOC: M SDC 09:56 → M ED INP 20:09 → M MS5PR 20:50
PROVIDERS: ADMIT Plastic Surgery Surgery of the Hand; ATTEND Plastic Surgery Surgery of the Hand
DX: N62 Hypertrophy of breast (principal); F64.9 Gender identity disorder, unspecified; E03.9 Hypothyroidism, unspecified; G40.909 Epilepsy, unspecified, not intractable, without status epilepticus; G93.2 Benign intracranial hypertension; Z98.2 Presence of cerebrospinal fluid drainage device; M79.7 Fibromyalgia; E11.9 Type 2 diabetes mellitus without complications; D45 Polycythemia vera; F43.10 Post-traumatic stress disorder, unspecified; F31.9 Bipolar disorder, unspecified; F41.9 Anxiety disorder, unspecified; F32.A Depression, unspecified; F94.9 Childhood disorder of social functioning, unspecified; L73.2 Hidradenitis suppurativa; J45.909 Unspecified asthma, uncomplicated; G47.33 Obstructive sleep apnea (adult) (pediatric); Z87.891 Personal history of nicotine dependence; Z79.899 Other long term (current) drug therapy; Z91.040 Latex allergy status; Z88.0 Allergy status to penicillin; Z88.1 Allergy status to other antibiotic agents; Z88.2 Allergy status to sulfonamides; F11.20 Opioid dependence, uncomplicated; E66.01 Morbid (severe) obesity due to excess calories
CPT/HCPCS: 19318; 36415; 71045; 76000; 80048; 87635; 88305; 96365; 96366; C9290; G0378; J0131; J0665; J0737; J1100; J1170; J1580; J1805; J2250; J2371; J2405; J3010

== ENCOUNTER → 2023-04-25 | Outpatient (REF) | payer MEDICARE, OTHER ==
[~2023-04-25] MED LIST changes: +CLIN150C17 PO; -CLINDAMYCIN 900 MG in IV 1 EA IV ONE; -HEPARIN SOD (PORCINE) 5000UNITS/ML 1ML VIAL/SYRINGE SQ ONE; -LIDOCAINE 2% 100MG/5ML SDV (FOR ANES.) As Ordered ONE; -MIDAZOLAM INJ 2MG/2ML VIAL As Ordered ONE; -ONDANSETRON 4MG 2ML VIAL As Ordered ONE; -ROCURONIUM BROMIDE 50MG/5ML VIAL As Ordered ONE; -SUGAMMADEX SODIUM 500 MG/5 ML VIAL (BRIDION) As Ordered ONE; -dexmedeTOMIDine (4MCG/ML)200MCG/50ML BTL (PRECEDEX) As Ordered ONE; -fentaNYL 250 MCG/5 ML INJECTION As Ordered ONE; -propofoL 200 MG/20 ML VIAL As Ordered ONE
== END ==
LOC: M LAB REF 16:50
PROVIDERS: ATTEND Physician Assistant
DX: N62 Hypertrophy of breast (principal); Z48.89 Encounter for other specified surgical aftercare